=== PATIENT | male | born 1955 | race Caucasian/White ===

== ENCOUNTER 2020-05-25 16:50 | Outpatient (REF) | payer MEDICARE, MEDICAID, SELFPAY | END 2020-05-25 16:51 | disposition home or self-care (01) | LOC: HO.LNP 16:50 | PROVIDERS: Visit Provider Internal Medicine | DX: Z20.828 Contact with and (suspected) exposure to other viral communicable diseases (principal) | CPT/HCPCS: U0003 ==

== ENCOUNTER 2020-07-02 11:59 | Outpatient (REF) | payer MEDICARE, MEDICAID, SELFPAY ==
[2020-07-02 13:42] LABS: MANUAL DIFF FLAG NO
[2020-07-02 13:49] LABS: Basophils Percent Auto 0.5 % (0-2); Eosinophils Absolute Auto 0.1 X10*3/uL (0.0-0.4); Eosinophils Percent Auto 0.8 % (0-4); Hematocrit 46.6 % (42-52); Hemoglobin 15.2 g/dl (14.0-18.0); Imm Gran Abs Auto 0.05 X10*3/uL (0.00-0.03); Imm Gran Pct Auto 0.6 % (0.0-0.4); Lymphocytes Absolute Auto 1.4 X10*3/uL (1.2-4.9); Lymphocytes Percent Auto 15.7 % (20-40); Mean Corpuscular HGB Conc 32.6 g/dl (31.0-36.0); Mean Corpuscular Volume 91.9 fL (80-98); Mean Platelet Volume 12.1 fL (9.4-12.4); Monocytes Absolute Auto 0.4 X10*3/uL (0.1-1.2); Neutrophils Absolute Auto 6.7 X10*3/uL (2.0-8.3); Neutrophils Percent Auto 77.4 % (45-73); Platelet Count 210 X10*3/uL (160-400); Red Blood Count 5.07 X10*6/uL (4.60-5.80); Red Cell Distribution Width 13.1 % (11.0-16.0); White Blood Count 8.7 X10*3/uL (4.8-10.8)
[2020-07-02 14:23] LABS: Alanine Aminotransferase 27 U/L (0-40); Albumin Level 4.5 g/dL (3.5-5.0); Alkaline Phosphatase 74 U/L (39-117); Anion Gap 14 (12-20); Aspartate Amino Transferase 30 U/L (5-37); Bilirubin Total 0.5 mg/dL (0.0-1.0); Blood Urea Nitrogen 27 mg/dL (9-16); Calcium 9.2 mg/dL (8.4-10.2); Carbon Dioxide 25 mmol/L (22-29); Chloride 108 mmol/L (96-108); Cholesterol 161 mg/dL; Estimated Glomerular Filt Rate > 60; Glucose Random 92 mg/dL (60-115); Potassium 4.5 mmol/l (3.3-5.1); Sodium 142 mmol/L (135-145); Total Protein 7.2 g/dL (6.5-8.0)
[2020-07-02 14:45] LABS: Thyroid Stimulating Hormone 1.78 uIU/mL (0.32-4.0); Vitamin D 25-OH Total 20.9 ng/mL (>30)
== END 2020-07-02 12:00 | disposition home or self-care (01) ==
LOC: HO.10HDL 11:59
PROVIDERS: PCP Internal Medicine; Visit Provider Internal Medicine
DX: I10 Essential (primary) hypertension (principal); R35.1 Nocturia; G40.909 Epilepsy, unspecified, not intractable, without status epilepticus; R63.5 Abnormal weight gain
CPT/HCPCS: 36415; 80053; 82306; 82465; 84153; 84443; 85025

== ENCOUNTER 2021-04-08 10:58 | Outpatient (REF) | payer MEDICARE, MEDICAID, SELFPAY ==
[2021-04-08 13:23] LABS: MANUAL DIFF FLAG NO
[2021-04-08 13:25] LABS: Basophils Percent Auto 0.5 % (0-2); Eosinophils Absolute Auto 0.1 X10*3/uL (0.0-0.4); Hematocrit 48.3 % (42-52); Hemoglobin 15.9 g/dl (14.0-18.0); Imm Gran Abs Auto 0.08 X10*3/uL (0.00-0.03); Lymphocytes Absolute Auto 1.5 X10*3/uL (1.2-4.9); Lymphocytes Percent Auto 18.5 % (20-40); Mean Corpuscular HGB Conc 32.9 g/dl (31.0-36.0); Mean Corpuscular Volume 91.1 fL (80-98); Mean Platelet Volume 11.9 fL (9.4-12.4); Monocytes Absolute Auto 0.5 X10*3/uL (0.1-1.2); Monocytes Percent Auto 5.8 % (2-11); Neutrophils Absolute Auto 5.9 X10*3/uL (2.0-8.3); Neutrophils Percent Auto 73.2 % (45-73); Platelet Count 193 X10*3/uL (160-400); Red Cell Distribution Width 12.9 % (11.0-16.0); White Blood Count 8.1 X10*3/uL (4.8-10.8)
[2021-04-08 13:55] LABS: Alanine Aminotransferase 36 U/L (0-40); Albumin Level 4.6 g/dL (3.5-5.0); Alkaline Phosphatase 76 U/L (39-117); Anion Gap 14 (12-20); Aspartate Amino Transferase 32 U/L (5-37); Bilirubin Total 0.9 mg/dL (0.0-1.0); Blood Urea Nitrogen 26 mg/dL (9-16); Calcium 9.9 mg/dL (8.4-10.2); Carbon Dioxide 26 mmol/L (22-29); Chloride 106 mmol/L (96-108); Cholesterol 158 mg/dL; Estimated Glomerular Filt Rate > 60; Glucose Fasting 103 mg/dL (60-99); HDL Cholesterol 33 mg/dL; LDL Cholesterol Calculated 94 mg/dl; Potassium 4.4 mmol/L (3.3-5.1); Sodium 142 mmol/L (135-145); Total Protein 7.4 g/dL (6.5-8.0); Triglycerides 159 mg/dL
[2021-04-08 14:16] LABS: Vitamin D 25-OH Total 27.9 ng/mL (>30)
== END 2021-04-08 10:59 | disposition home or self-care (01) ==
LOC: HO.10HDL 10:58
PROVIDERS: Visit Provider Internal Medicine
DX: E78.00 Pure hypercholesterolemia, unspecified (principal); I10 Essential (primary) hypertension; E55.9 Vitamin D deficiency, unspecified; G40.909 Epilepsy, unspecified, not intractable, without status epilepticus
CPT/HCPCS: 36415; 80053; 80061; 82306; 85025

== ENCOUNTER 2021-10-10 10:51 | Outpatient (REF) | payer MEDICARE, MEDICAID, SELFPAY ==
[2021-10-10 12:25] LABS: MANUAL DIFF FLAG NO
[2021-10-10 12:31] LABS: Basophils Percent Auto 0.4 % (0-2); Eosinophils Absolute Auto 0.1 X10*3/uL (0.0-0.4); Hematocrit 50.5 % (42.0-52.0); Hemoglobin 16.3 g/dl (14.0-18.0); Imm Gran Abs Auto 0.05 X10*3/uL (0.00-0.03); Imm Gran Pct Auto 0.6 % (0.0-0.4); Lymphocytes Absolute Auto 1.8 X10*3/uL (1.2-4.9); Lymphocytes Percent Auto 21.9 % (20-40); Mean Corpuscular HGB Conc 32.3 g/dl (31.0-36.0); Mean Corpuscular Hemoglobin 30.1 pg (27.0-33.0); Mean Corpuscular Volume 93.3 fL (80.0-98.0); Mean Platelet Volume 12.1 fL (9.4-12.4); Monocytes Absolute Auto 0.6 X10*3/uL (0.1-1.2); Monocytes Percent Auto 7.4 % (2-11); Neutrophils Absolute Auto 5.6 x10*3/uL (2.0-8.3); Neutrophils Percent Auto 68.7 % (45-73); Platelet Count 200 X10*3/uL (160-400); Red Blood Count 5.41 X10*6/uL (4.60-5.80); White Blood Count 8.2 X10*3/uL (4.8-10.8)
[2021-10-10 12:47] LABS: Alanine Aminotransferase 30 U/L (0-40); Albumin Level 4.5 g/dL (3.5-5.0); Alkaline Phosphatase 76 U/L (39-117); Anion Gap 12 (12-20); Aspartate Amino Transferase 28 U/L (5-37); Blood Urea Nitrogen 24 mg/dL (9-16); Calcium 9.2 mg/dL (8.4-10.2); Carbon Dioxide 25 mmol/L (22-29); Chloride 108 mmol/L (96-108); Estimated Glomerular Filt Rate > 60; Glucose Random 91 mg/dL (60-115); Potassium 4.5 mmol/L (3.3-5.1); Sodium 140 mmol/L (135-145); Total Protein 7.4 g/dL (6.5-8.0)
[2021-10-10 13:05] LABS: Vitamin D 25-OH Total 27.7 ng/mL (>30)
== END 2021-10-10 10:52 | disposition home or self-care (01) ==
LOC: HO.10HDL 10:51
PROVIDERS: Visit Provider Internal Medicine
DX: G40.909 Epilepsy, unspecified, not intractable, without status epilepticus (principal); E78.00 Pure hypercholesterolemia, unspecified; I10 Essential (primary) hypertension; E55.9 Vitamin D deficiency, unspecified; K21.9 Gastro-esophageal reflux disease without esophagitis
CPT/HCPCS: 36415; 80053; 82306; 85025

== ENCOUNTER 2022-01-03 11:06 | Outpatient (REF) | payer MEDICARE, MEDICAID, SELFPAY ==
[2022-01-03 14:22] LABS: Blood Urea Nitrogen 27 mg/dL (9-16); Estimated Glomerular Filt Rate > 60
== END 2022-01-03 11:07 | disposition home or self-care (01) ==
LOC: HO.10HDL 11:06
PROVIDERS: Visit Provider Urology
DX: C67.9 Malignant neoplasm of bladder, unspecified (principal)
CPT/HCPCS: 36415; 82565; 84520

== ENCOUNTER 2022-05-26 11:50 | Outpatient (REF) | payer MEDICARE, MEDICAID, SELFPAY ==
[2022-05-26 13:37] LABS: MANUAL DIFF FLAG NO
[2022-05-26 13:43] LABS: Basophils Percent Auto 0.4 % (0-2); Eosinophils Absolute Auto 0.1 X10*3/uL (0.0-0.4); Hematocrit 47.2 % (42.0-52.0); Hemoglobin 15.4 g/dl (14.0-18.0); Imm Gran Abs Auto 0.06 X10*3/uL (0.00-0.03); Imm Gran Pct Auto 0.8 % (0.0-0.4); Lymphocytes Absolute Auto 1.1 X10*3/uL (1.2-4.9); Lymphocytes Percent Auto 14.2 % (20-40); Mean Corpuscular HGB Conc 32.6 g/dl (31.0-36.0); Mean Corpuscular Hemoglobin 30.2 pg (27.0-33.0); Mean Corpuscular Volume 92.5 fL (80.0-98.0); Mean Platelet Volume 11.6 fL (9.4-12.4); Monocytes Absolute Auto 0.7 X10*3/uL (0.1-1.2); Monocytes Percent Auto 8.6 % (2-11); Neutrophils Absolute Auto 5.9 x10*3/uL (2.0-8.3); Platelet Count 202 X10*3/uL (160-400); Red Cell Distribution Width 12.8 % (11.0-16.0); White Blood Count 7.9 X10*3/uL (4.8-10.8)
[2022-05-26 14:20] LABS: Alanine Aminotransferase 24 U/L (0-40); Albumin Level 4.3 g/dL (3.5-5.0); Alkaline Phosphatase 74 U/L (39-117); Anion Gap 14 (12-20); Aspartate Amino Transferase 25 U/L (5-37); Bilirubin Total 0.6 mg/dL (0.0-1.0); Blood Urea Nitrogen 33 mg/dL (9-16); Calcium 9.1 mg/dL (8.4-10.2); Carbon Dioxide 24 mmol/L (22-29); Chloride 109 mmol/L (96-108); Cholesterol 132 mg/dL; Estimated Glomerular Filt Rate > 60; Glucose Fasting 103 mg/dL (60-99); HDL Cholesterol 28 mg/dL; LDL Cholesterol Calculated 70 mg/dl; Potassium 4.8 mmol/L (3.3-5.1); Prostate Specific Antigen 3.61 ng/mL (<0.05-4.0); Sodium 142 mmol/L (135-145); Total Protein 6.9 g/dL (6.5-8.0); Triglycerides 171 mg/dL
== END 2022-05-26 11:51 | disposition home or self-care (01) ==
LOC: HO.10HDL 11:50
PROVIDERS: Visit Provider Internal Medicine
DX: I10 Essential (primary) hypertension (principal); E78.00 Pure hypercholesterolemia, unspecified; N40.0 Benign prostatic hyperplasia without lower urinary tract symptoms; Z12.5 Encounter for screening for malignant neoplasm of prostate
CPT/HCPCS: 36415; 80053; 80061; 84153; 85025

== ENCOUNTER 2022-11-19 09:53 | Emergency (ER) | payer MEDICARE, MEDICAID, SELFPAY ==
--- NOTE | ~2022-11-19 | CT_ITS ---
EXAMINATION: CT HEAD W/O IV CONTRAST CT CERVICAL SPINE W/O IV CONTRAST CLINICAL INFORMATION: History of fall with head strike. History of subdural hemorrhage. COMPARISON: 06/02/2019 TECHNIQUE: Head - Contiguous axial imaging of the head was performed from the skull base to the vertex without the administration of intravenous contrast, and axial images are reconstructed at 2 mm and 5 mm slice thickness. Cervical spine - A volumetric, helical CT acquisition of the cervical spine was obtained without contrast; in addition to the standard set of axial images, multiplanar reformatted images were provided in the coronal and sagittal imaging planes. This CT examination was performed using dose optimization techniques as appropriate, variously including the following: *Automated exposure control *Adjustment of mA and/or kV according to patient size (this includes techniques or standardized protocols for targeted exams where dose is matched to indication/reason for exam; i.e. extremities or head) *Use of iterative reconstruction technique DLP: 1316 mGy-cm (total) FINDINGS: HEAD: No acute intracranial findings compared to 06/02/2019. Ponce to white matter differentiation is preserved. No evidence of intracranial hemorrhage, major vascular territory infarction, focal mass effect or midline shift. Chronic moderate parenchymal volume loss with commensurate prominence of ventricles and sulci. No hydrocephalus or extra-axial fluid collections. Bilateral frontal craniotomies. The ventricular shunt catheter enters from a right parietal approach and the tip of the catheter remains within the body of the left lateral ventricle. 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 There are changes of chronic mild microangiopathy affecting the supratentorial white matter. The visualized paranasal sinuses are well aerated. There is opacification of some of the right mastoid air cells. The orbits, globes and temporomandibular joints are unremarkable. CERVICAL SPINE: The craniocervical junction is normal. The occipital condyles, dens and atlantodental articulation are intact. The vertebral body heights and alignment are maintained. No fractures in the anterior or posterior elements. No prevertebral soft tissue edema or paraspinal hematoma. The facet arthropathy of the cervical spine is moderate on the right at C2-C3 and mild at other levels. Chronic degenerative disc disease and uncovertebral joint hypertrophy of C3-C4, C4-C5, C5-C6 and C6-C7. The posterior disc-osteophyte complexes mildly narrow the central spinal canal, and there is generally moderate multilevel foraminal stenosis at these levels. The lung apices and thyroid gland are unremarkable. CT/CT cervical spine wo IV con IMPRESSION: * No acute intracranial pathology compared to prior head CT from 06/02/2019. * No fracture or malalignment in the degenerated cervical spine. * The tip of the ventricular shunt catheter is located in the body of the left lateral ventricle, unchanged compared to 06/02/2019.
--- NOTE | ~2022-11-19 | XR_ITS ---
EXAMINATION: XR HAND, LEFT at 10:42 AM XR HAND, LEFT at 11:10 AM CLINICAL INFORMATION: 4th digit, pain s/p fall. Postreduction views COMPARISON: None TECHNIQUE: PA, lateral, and oblique views of the left hand were obtained before and after reduction of the ring finger.. FINDINGS: Prereduction left hand images: There is dorsal dislocation of the ring finger at the level of the PIP joint with slight ulnar translation (3 mm) and foreshortening. Soft tissues are swollen. No fractures are identified. Joints otherwise well-preserved. No additional malalignment. Postreduction left hand images: Normal anatomic alignment of the ring finger PIP joint has been restored. Joint space is normal. No appreciable fractures are identified. Bone mineralization is normal. Mild soft tissue swelling. XR/XR hand LT min 3V IMPRESSION: Left ring finger PIP joint dislocation with subsequent reduction and baptism of normal anatomic alignment. No fractures are identified. Soft tissue swelling is present.
--- NOTE | ~2022-11-19 | XR_ITS ---
EXAMINATION: XR HAND, LEFT at 10:42 AM XR HAND, LEFT at 11:10 AM CLINICAL INFORMATION: 4th digit, pain s/p fall. Postreduction views COMPARISON: None TECHNIQUE: PA, lateral, and oblique views of the left hand were obtained before and after reduction of the ring finger.. FINDINGS: Prereduction left hand images: There is dorsal dislocation of the ring finger at the level of the PIP joint with slight ulnar translation (3 mm) and foreshortening. Soft tissues are swollen. No fractures are identified. Joints otherwise well-preserved. No additional malalignment. Postreduction left hand images: Normal anatomic alignment of the ring finger PIP joint has been restored. Joint space is normal. No appreciable fractures are identified. Bone mineralization is normal. Mild soft tissue swelling. XR/XR hand LT min 3V IMPRESSION: Left ring finger PIP joint dislocation with subsequent reduction and anabaptist of normal anatomic alignment. No fractures are identified. Soft tissue swelling is present.
[2022-11-19 09:59] VITALS: BP 141/88; PULSE 77; RESP 18; TEMP 36.6; O2SAT 98; BMI 30.7
[2022-11-19 10:58] VITALS: BP 132/83; PULSE 66; RESP 18; TEMP 37.1; O2SAT 96
--- NOTE | 2022-11-19 11:02 | ED.FALL ---
HPI - Fall General Chief Complaint: Fall Stated Complaint: fall t-1/hand and head inj Time Seen by Provider: 11/19/22 10:37 Source: patient Mode of arrival: ambulatory Limitations: no limitations History of Present Illness HPI Narrative: THIS IS A 67 YEARS OLD PATIENT WHO PRESENTED TO THE EMERGENCY DEPARTMENT AFTER A FALL LAST NIGHT. HE STATES THAT HE FELL FROM THE CHAIR. HE STATES THAT HE DID NOT HAVE A RIDE TO COME LAST NIGHT. IS COMPLAINING OF A HEADACHE AND LEFT HAND PAIN NO NECK PAIN. HE HAS HISTORY OF PRIOR SUBDURAL HEMATOMA complaint: fall Onset (ago): day(s) Fall from: wheelchair Fall witnessed: no Place fall occurred: home Loss of consciousness: none Location of injury: head Location of injury - extremities: left: hand Quality: burning Associated symptoms (after fall): denies Related Data Allergies Allergy/AdvReac Type Severity Reaction Status Date / Time No Known Allergies Allergy Mild NONE Verified 11/19/22 09:57 Review of Systems Constitutional: Constitutional: Reports no additional constitutional complaints ENT: Reports system reviewed and no additional complaints, except as documented Gastrointestinal: Gastrointestinal: Reports no additional gastrointestinal complaints [facility] Past Medical History [facility] Narrative: HISTORY OF SUBDURAL HEMATOMA Social History Social History Smoked in Last 30 Days: No Advance Directives: No Advance Directives Information Provided: Yes Physical Exam Vital Signs: Vital Signs: Last Vital Signs Temp 98.7 F 11/19/22 10:58 Pulse 66 11/19/22 10:58 Resp 18 11/19/22 10:58 BP 132/83 11/19/22 10:58 Pulse Ox 96 11/19/22 10:58 O2 Del Method Room Air 11/19/22 10:58 BMI result Body Mass Index 30.7 Const: General: cooperative Nutritional Appearance: well nourished Orientation/consciousness: patient oriented x3 Limitations: no limitations HEENT: Head: No abrasion, No Marquez's sign and No laceration General nose exam: Normal external nose present Face and sinus: Yes normal facial exam Neck: Neck: Yes normal visual inspection Chest: Chest palpation & inspection: normal inspection of the chest Resp: Effort & Inspection: normal respiratory effort Auscultation: clear to auscultation bilaterally Cardio: Jugular venous distension: no JVD Rate: regular rate Rhythm: regular rhythm GI: Inspection: Yes normal to inspection Palpation (GI): Soft to palpation, not firm and nontender Skin: General skin exam: no rashes or lesions noted, elasticity normal and turgor normal Rashes: no rashes Neuro: General: patient oriented x3 Extrem: Other: THERE IS A DEFORMITY IN THE LEFT RING FINGER AT THE PIP Course Reevaluation(s) Reevaluation #1: CT head and C-spine were negative hand showed dislocation of the PIP joint of the left ring finger the dislocation was reduced by me a splint was applied Procedures Orthopedic Joint Reduction Joint #1: Time Out Performed: Yes Side: left Joint Reduction Location: other (left ring finger PIP dislocation) Analgesia: none Technique used: traction/counter-traction and direct manipulation Post-reduction neuro exam: intact Post-reduction vascular: intact Post Reduction X-Ray Obtained: Yes Post Reduction X-Ray Results: reduced Patient Tolerated Procedure: well Medical Decision Making Medical Decision Making MDM Narrative: PRESENTED IN THE FALL LAST NIGHT WILL GET IMAGING HEAD/C-SPINE LEFT HAND Differential Diagnosis Differential Diagnoses: The differential diagnosis associated with the presentation includes SUBDURAL HEMATOMA/EPIDURAL HEMATOMA CONCUSSION Admission/Observation Consideration of admission/observation: Escalation of care including admission/observation considered Independent Interpretation I performed an independent interpretation of an: Plain X-Ray and CT Scan Interpretation: I INTERPRETED THE XRAY LEFT PIP DISLOCATION,head ct no subdural,CSpine ct no fx Radiology Impression Discussion of test interpretation with radiology: I have reviewed the radiologist's reading. Radiologist Impression: actures are identified. Joints otherwise well-preserved. No additional malalignment.? Postreduction left hand images: Normal anatomic alignment of the ring finger PIP joint has been restored. Joint space is normal. No appreciable fractures are identified. Bone mineralization is normal. Mild soft tissue swelling.? XR/XR hand LT min 3V IMPRESSION: Left ring finger PIP joint dislocation with subsequent reduction and hinduism of normal anatomic alignment. No fractures are identified. Soft tissue swelling is present. ? Dictated By: n Signed By: <Electronically signed by n in OV> 11/19/22 1144 The craniocervical junction is normal. The occipital condyles, dens and atlantodental articulation are intact. The vertebral body heights and alignment are maintained.? No fractures in the anterior or posterior elements. No prevertebral soft tissue edema or paraspinal hematoma. The facet arthropathy of the cervical spine is moderate on the right at C2-C3 and mild at other levels. Chronic degenerative disc disease and uncovertebral joint hypertrophy of C3-C4, C4-C5, C5-C6 and C6-C7. The posterior disc-osteophyte complexes mildly narrow the central spinal canal, and there is generally moderate multilevel foraminal stenosis at these levels. The lung apices and thyroid gland are unremarkable. CT/CT head/brain wo IV con IMPRESSION: *? No acute intracranial pathology compared to prior head CT from 06/02/2019. *? No fracture or malalignment in the degenerated cervical spine. *? The tip of the ventricular shunt catheter is located in the body of the left lateral ventricle, unchanged compared to 06/02/2019. ? Discharge Plan Discharge Clinical Impression: Head injury, Dislocation of finger PIP joint Patient Disposition: Home, Self-Care Instructions: Head Injury (ED), Finger Dislocation (ED) Referrals: Zion Brewer MD [Physician] - 3 days Interventions: ED Discharge Assessment Last Done: 11/19/22 15:01 Discharge Date/Time: 11/19/22 15:02
--- NOTE | 2022-11-19 12:54 | PC.NURSE ---
per finger splinted, awaiting CT results
== END 2022-11-19 15:02 | disposition home or self-care (01) ==
PROVIDERS: Emergency Provider Emergency Medicine; PCP Internal Medicine
DX: S09.90XA Unspecified injury of head, initial encounter (principal); S63.255A Unspecified dislocation of left ring finger, initial encounter; M79.642 Pain in left hand; M54.2 Cervicalgia; R51.9 Headache, unspecified; W07.XXXA Fall from chair, initial encounter; Y93.9 Activity, unspecified; Y92.9 Unspecified place or not applicable; Y99.9 Unspecified external cause status; Z79.899 Other long term (current) drug therapy
CPT/HCPCS: 70450; 72125; 73130; 99284

== ENCOUNTER → 2022-11-21 13:31 | Outpatient (BNVA) | payer MEDICARE, MEDICAID, SELFPAY | PROVIDERS: PCP Internal Medicine; Visit Provider Orthopaedic Surgery | DX: S63.285D Dislocation of proximal interphalangeal joint of left ring finger, subsequent encounter (principal) | CPT/HCPCS: 99202 ==

== ENCOUNTER → 2022-12-25 13:42 | Outpatient (BNVA) | payer MEDICARE, MEDICAID, SELFPAY | PROVIDERS: PCP Internal Medicine; Visit Provider Physician Assistant | DX: S63.285D Dislocation of proximal interphalangeal joint of left ring finger, subsequent encounter (principal) | CPT/HCPCS: 99212 ==

== ENCOUNTER 2023-02-15 14:20 | Outpatient (AMB) | payer MEDICARE, MEDICAID, SELFPAY ==
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
[2023-02-15 14:31] VITALS: BP 130/84; PULSE 70; O2SAT 98; BMI 29.7
== END 2023-02-15 15:13 | disposition home or self-care (01) ==
PROVIDERS: Visit Provider Psychiatry & Neurology Neurology
DX: R26.9 Unspecified abnormalities of gait and mobility (principal); R29.6 Repeated falls; Z98.2 Presence of cerebrospinal fluid drainage device
CPT/HCPCS: 99204

== ENCOUNTER → 2023-02-15 14:20 | Outpatient (BNVA) | payer MEDICARE, MEDICAID, SELFPAY | PROVIDERS: Visit Provider Psychiatry & Neurology Neurology | DX: R26.9 Unspecified abnormalities of gait and mobility (principal); Z98.2 Presence of cerebrospinal fluid drainage device; Z91.81 History of falling | CPT/HCPCS: 99202 ==

== ENCOUNTER 2023-07-17 08:55 | Outpatient (REF) | payer MEDICARE, MEDICAID, SELFPAY ==
[2023-07-17 11:21] LABS: MANUAL DIFF FLAG NO
[2023-07-17 11:23] LABS: Basophils Absolute Auto 0.1 X10*3/uL (0.0-0.2); Basophils Percent Auto 0.7 % (0-2); Eosinophils Absolute Auto 0.1 X10*3/uL (0.0-0.4); Eosinophils Percent Auto 0.6 % (0-4); Hematocrit 48.4 % (42.0-52.0); Imm Gran Abs Auto 0.07 X10*3/uL (0.00-0.03); Imm Gran Pct Auto 0.9 % (0.0-0.4); Lymphocytes Absolute Auto 1.3 X10*3/uL (1.2-4.9); Lymphocytes Percent Auto 16.5 % (20-40); Mean Corpuscular HGB Conc 33.1 g/dl (31.0-36.0); Mean Corpuscular Volume 90.6 fL (80.0-98.0); Monocytes Absolute Auto 0.5 X10*3/uL (0.1-1.2); Monocytes Percent Auto 6.3 % (2-11); Neutrophils Absolute Auto 6.1 x10*3/uL (2.0-8.3); Platelet Count 240 X10*3/uL (160-400); Red Blood Count 5.34 X10*6/uL (4.60-5.80); Red Cell Distribution Width 13.1 % (11.0-16.0); White Blood Count 8.1 X10*3/uL (4.8-10.8)
[2023-07-17 11:53] LABS: Alanine Aminotransferase 21 U/L (0-40); Albumin Level 4.5 g/dL (3.5-5.0); Alkaline Phosphatase 71 U/L (39-117); Anion Gap 12 (12-20); Aspartate Amino Transferase 25 U/L (5-37); Bilirubin Total 0.9 mg/dL (0.0-1.0); Blood Urea Nitrogen 24 mg/dL (9-16); Calcium 9.1 mg/dL (8.4-10.2); Carbon Dioxide 25 mmol/L (22-29); Chloride 109 mmol/L (96-108); Cholesterol 167 mg/dL (<200); Estimated Glomerular Filt Rate > 60; Glucose Fasting 105 mg/dL (60-99); HDL Cholesterol 31 mg/dL (>40); LDL Cholesterol Calculated 103 mg/dL (<100); Potassium 4.3 mmol/L (3.3-5.1); Sodium 142 mmol/L (135-145); Total Protein 7.6 g/dL (6.5-8.0); Triglycerides 169 mg/dL (<150)
[2023-07-17 12:23] LABS: Prostate Specific Antigen Scr 0.94 ng/mL (<0.05-4.0)
== END 2023-07-17 08:56 | disposition home or self-care (01) ==
LOC: HO.10HDL 08:55
PROVIDERS: Visit Provider Internal Medicine
DX: I10 Essential (primary) hypertension (principal); E78.00 Pure hypercholesterolemia, unspecified; K21.9 Gastro-esophageal reflux disease without esophagitis; R35.1 Nocturia; Z87.898 Personal history of other specified conditions; Z12.5 Encounter for screening for malignant neoplasm of prostate
CPT/HCPCS: 36415; 80053; 80061; 84153; 85025

== ENCOUNTER 2023-07-27 13:41 | Outpatient (REF) | payer MEDICARE, MEDICAID, SELFPAY ==
--- NOTE | ~2023-07-27 | CT_ITS ---
EXAMINATION: CT HEAD WITHOUT CONTRAST CLINICAL INFORMATION: 68-year-old with ataxia and history of previous shunting. COMPARISON: 11/19/2022 CT brain. TECHNIQUE: Contiguous axial imaging was performed from the skull base to vertex without intravenous administration of contrast. This CT examination was performed using dose optimization techniques as appropriate, variously including the following: *Automated exposure control *Adjustment of mA and/or kV according to patient size (this includes techniques or standardized protocols for targeted exams where dose is matched to indication/reason for exam; i.e. extremities or head) *Use of iterative reconstruction technique DLP: 924 mGy-cm FINDINGS: BRAIN VOLUME: [id number] generalized diffuse brain parenchymal volume loss is similar in appearance to the previous study. BRAIN AND MENINGES: Right parietal ventriculostomy shunt catheter again noted traversing the right lateral ventricle, septum pellucidum and terminating in the frontal horn of the left lateral ventricle unchanged in appearance. No extra-axial fluid collections, intracranial hemorrhage, space-occupying process or mass effect and no evidence for acute territorial infarct. Small chronic infarct involving the anterior limb of the left internal capsule and left caudate head unchanged. Focally confluent white matter hypodensity in the right posterior frontoparietal region adjacent to the shunt catheter is unchanged. VENTRICLES AND SUBARACHNOID SPACES: There is third and lateral ventriculomegaly as well as prominence of the fourth ventricle largely stable in appearance without significant interval change. ORBITAL STRUCTURES: Grossly unremarkable within the limitations of the study. OSSEOUS STRUCTURES, SINUSES/MASTOIDS, EXTRACRANIAL SOFT TISSUES: Evidence of previous bifrontal craniotomies again noted stable in appearance. The visualized airspaces are unopacified. CT/CT head/brain wo IV con IMPRESSION: 1. No evidence for acute territorial infarct, intracranial hemorrhage, extra-axial fluid collection, space-occupying process or mass effect. 2. Right parietal ventriculostomy shunt catheter again noted with stable ventriculomegaly. 3. 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
== END 2023-07-27 13:42 | disposition home or self-care (01) ==
LOC: HO.CT 13:41
PROVIDERS: PCP Internal Medicine; Visit Provider Psychiatry & Neurology Neurology
DX: R27.0 Ataxia, unspecified (principal)
CPT/HCPCS: 70450

== ENCOUNTER 2023-08-25 17:46 | Emergency (ER) | payer MEDICARE, MEDICAID, SELFPAY ==
--- NOTE | ~2023-08-25 | XR_ITS ---
EXAMINATION: XR CHEST 2 VIEWS CLINICAL INFORMATION: Chest pain. COMPARISON: Chest radiographs dated 06/02/2019. TECHNIQUE: Frontal and lateral views of the chest were obtained. FINDINGS: The heart, great vessels, pulmonary vasculature and mediastinum are normal. The lungs show no focal infiltrate, effusion or pneumothorax. There is stable mild lateral left base scar/subsegmental atelectasis, with tenting of the hemidiaphragm. There is no acute osseous abnormality. Shunt tubing overlaps the right cervical region and medial thorax. XR/XR chest 2V IMPRESSION: No active cardiopulmonary disease. There is no significant interim change.
[2023-08-25 17:50] VITALS: BP 149/92; PULSE 91; RESP 18; TEMP 37.1; O2SAT 90; BMI 30.4
--- NOTE | 2023-08-25 17:52 | ED.GENADULT ---
HPI - General Adult General Chief complaint: General Medical Stated complaint: L sided rib pain Time Seen by Provider: 08/25/23 18:21 Source: patient Mode of arrival: ambulatory Limitations: no limitations History of Present Illness HPI narrative: 68-year-old male with a history of high blood pressure, high cholesterol, anxiety, depression, bladder cancer here with complaints of 1 week of left sided rib pain which is worsened with coughing and breathing and movement. Patient denies shortness of breath, fevers, chills, leg swelling or leg pain. No recent travel, surgery. No personal or family history of blood clots. No urinary symptoms. Patient denies falls or injuries. Related Data Home Medications Medication Instructions Recorded Confirmed ascorbic acid (vitamin C) 500 mg 500 mg PO DAILY 11/21/22 02/15/23 tablet (Vitamin C) aspirin 81 mg tablet,delayed 81 mg PO DAILY 11/21/22 02/15/23 release cholecalciferol (vitamin D3) 50 50 mcg PO DAILY 11/21/22 02/15/23 mcg (2,000 unit) capsule (Vitamin D3) gabapentin 300 mg capsule mg PO 11/21/22 02/15/23 lisinopril 5 mg tablet 5 mg PO DAILY 11/21/22 02/15/23 lovastatin 40 mg tablet 40 mg PO DAILY 11/21/22 02/15/23 metoprolol tartrate 50 mg tablet 50 mg PO DAILY 11/21/22 02/15/23 polyethylene glycol 3350 17 g PO 11/21/22 02/15/23 gram/dose oral powder sertraline 50 mg tablet 50 mg PO DAILY 11/21/22 02/15/23 trazodone 50 mg tablet 50 mg PO BEDTIME 11/21/22 02/15/23 Previous Rx's Medication Instructions Recorded lidocaine 5 % topical patch 1 patch topical DAILY #15 ea 08/25/23 (Lidoderm) Allergies Allergy/AdvReac Type Severity Reaction Status Date / Time No Known Allergies Allergy Mild NONE Verified 02/15/23 14:39 Review of Systems Review of Systems: Yes all other systems are reviewed and are negative Constitutional: Constitutional: Reports no additional constitutional complaints, Denies body ache(s), Denies chills, Denies fever(s), Denies headache(s) and Denies weakness Eyes: Eyes: Reports no additional eye complaints and Denies change in vision ENT: Reports system reviewed and no additional complaints, except as documented, Denies dizziness, Denies headache(s), Denies nasal congestion, Denies nasal discharge and Denies neck pain Cardiovascular: Cardiovascular: Reports no additional cardiovascular complaints, Reports chest pain, Denies leg edema and Denies dyspnea Respiratory: Respiratory: Reports no additional respiratory complaints, Denies cough and Denies dyspnea Gastrointestinal: Gastrointestinal: Reports no additional gastrointestinal complaints, Denies abdominal pain, Denies diarrhea, Denies nausea and Denies vomiting Genitourinary: Genitourinary: Denies urinary incontinence Musculoskeletal: Musculoskeletal: Reports no additional musculoskeletal complaints, Denies back pain, Denies arthralgias, Denies joint swelling, Denies neck pain, Denies numbness and Denies tingling Integumentary/Breasts: Skin/Breast: Reports system reviewed and no additional complaints, except as docu and Denies rash Neurologic: Reports system reviewed and no additional complaints, except as documented, Denies Abnormal speech present, Denies dizziness, Denies headache(s), Denies numbness, Denies tingling and Denies weakness PMFSH Past Medical History Attestation statement: The following information was validated with the patient. 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 Physical Exam ED Vital Signs: Vital Signs - 24 hr 08/25/23 17:50 08/25/23 18:10 Temperature 98.8 F Pulse Rate 91 91 Respiratory Rate 18 16 Blood Pressure 149/92 H Pulse Oximetry 90 L 95 Oxygen Delivery Method Room Air Room Air BMI result Body Mass Index 30.4 Const General: cooperative, healthy appearing, comfortable and no acute distress Orientation/consciousness: patient oriented x3 Limitations: no limitations HENMT Head: Yes normal to inspection Ears: hearing grossly normal bilaterally General nose exam: Normal external nose present Face and sinus: Yes normal facial exam Mouth: Normal oral and palatal mucosa present Throat: Yes posterior oropharynx normal Eyes General: appearance normal, both eyes and all related structures Pupils: Equal, round and reactive pupils present Neck Neck: Yes normal visual inspection Chest Other: TTP to left lateral chest. NO crepitus or ecchymosis Chest palpation & inspection: normal inspection of the chest Resp Effort & Inspection: normal respiratory effort Auscultation: clear to auscultation bilaterally Cardio Rate: regular rate Rhythm: regular rhythm Peripheral pulses: Peripheral pulses 2+ throughout GI Inspection: Yes normal to inspection Palpation (GI): Soft to palpation and nontender Auscultation: normal bowel sounds General: Yes no CVA tenderness Back/Spine/Pelvis Back: no CVA tenderness Thoracic/Lumbar Spine: thoracic and lumbar spine normal to inspection Skin General skin exam: no rashes or lesions noted Neuro General: patient oriented x3, no focal motor deficits and normal sensation to monofilament Cranial nerves: Yes Equal, round and reactive pupils present Cognition (Neuro): normal cognition Speech: No Abnormal speech present Gait exam (Neuro): Normal gait present Motor exam (neuro): 5/5 motor strength present throughout Extrem General: Yes normal to inspection Course Course Course Narrative: This is an RME: Additional HPI, ROS, PE not included below will be deferred to primary provider. Patient is a 68-year-old male presents to the emergency department for evaluation of reported rib pain. 1 week ago, left anterior rib pain x1 week, awoke with that 1 morning without any known precipitating injury. States it is made worse with particular movements, deep inspiration or cough but denies any persistent cough/URI symptoms, shorntess of breath, nausea, vomiging, ABD pain. Plan: labs, CXR, EKG, viral testing Reevaluation(s) Reevaluation #1: 2039-labs are unremarkable. EKG is nonischemic. Chest x-ray shows no acute finding. Viral testing is negative. The pain seems more musculoskeletal as it is worsened with breathing, movement, and coughing. Likely muscular pain. Will recommend patient use Tylenol as needed and apply Lidoderm patches. Reviewed worrisome signs and symptoms of when to return to the emergency room. Comfortable plan for discharge home Medical Decision Making Medical Decision Making [facility] Narrative: 68-year-old male with a history of high blood pressure, high cholesterol, anxiety, depression, bladder cancer here with complaints of 1 week of left sided rib pain which is worsened with coughing and breathing. Patient denies shortness of breath, fevers, chills, leg swelling or leg pain. No recent travel, surgery. No family history of blood clots. No urinary symptoms. LS CTA. Abdomen soft/nontender. NO CVAT. VSS. No leg swelling or leg pain Left lateral chest wall with tenderness to palp with no crepitus or ecchymosis Will obtain EKG, CXR, UA, labs, viral testing Differential Diagnosis Differential Diagnoses: The differential diagnosis associated with the presentation includes Chest wall strain, ACS, dissection, PE, pneumonia, rib fracture, pyelonephritis, renal colic, UTI, musculoskeletal pain Doubt ACS with symptoms for 1 week with nonischemic EKG and negative troponin with history atypical for ACS. Doubt dissection with gradual onset of symptoms. Doubt PE with no hypoxia, no tachypnea, no tachycardia, no clinical findings concerning for DVT, no risk factors, negative D-dimer Admission/Observation Consideration of admission/observation: Escalation of care including admission/observation considered Lab Data [facility] Lab Attestation statement: I reviewed the patient's lab results. 08/25/23 18:48 08/25/23 18:48 Labs: Lab Results 08/25/23 08/25/23 Range/Units 18:48 20:08 WBC 8.8 (4.8-10.8) X10*3/uL RBC 4.81 (4.60-5.80) X10*6/uL Hgb 14.8 (14.0-18.0) g/dl Hct 44.2 (42.0-52.0) % MCV 91.9 (80.0-98.0) fL MCH 30.8 (27.0-33.0) pg MCHC 33.5 (31.0-36.0) g/dl RDW 13.1 (11.0-16.0) % Plt Count 187 (160-400) X10*3/uL MPV 11.1 (9.4-12.4) fL Immature Gran % (Auto) 0.5 H (0.0-0.4) % Neut % (Auto) 77.9 H (45-73) % Lymph % (Auto) 14.3 L (20-40) % [place] % (Auto) 6.3 (2-11) % Eos % (Auto) 0.7 (0-4) % Baso % (Auto) 0.3 (0-2) % Lymph # (Auto) 1.3 (1.2-4.9) X10*3/uL [place] # (Auto) 0.6 (0.1-1.2) X10*3/uL Eos # (Auto) 0.1 (0.0-0.4) X10*3/uL Baso # (Auto) 0.0 (0.0-0.2) X10*3/uL Abs Immat Gran (auto) 0.04 H (0.00-0.03) X10*3/uL Absolute Neuts (auto) 6.8 (2.0-8.3) x10*3/uL Absolute Nucleated RBC 0.000 (0.0-0.012) X10*3/uL Nucleated RBC % (auto) 0.0 (0.0-0.2) /100WBC PT 12.7 (11.1-13.3) SEC INR 1.0 (0.9-1.1) D-Dimer High Sensitivty < 150 NG/ML Sodium 141 (135-145) mmol/L Potassium 4.2 (3.3-5.1) mmol/L Chloride 106 (96-108) mmol/L Carbon Dioxide 25 (22-29) mmol/L Anion Gap 14 (12-20) BUN 24 H (9-16) mg/dL Creatinine 1.06 (0.5-1.4) mg/dL Estim Creat Clear Calc 70.9 Estimated GFR > 60 Random Glucose 106 (60-115) mg/dL Calcium 9.3 (8.4-10.2) mg/dL Total Bilirubin 0.6 (0.0-1.0) mg/dL AST 23 (5-37) U/L ALT 19 (0-40) U/L Alkaline Phosphatase 76 (39-117) U/L Troponin I High Sens 6.4 (<3.5-35.0) ng/L B-Natriuretic Peptide 73 (<100) pg/mL Total Protein 7.2 (6.5-8.0) g/dL Albumin 4.2 (3.5-5.0) g/dL Lipase 20 (8-78) U/L Urine Color Yellow Urine Appearance Clear Urine pH 5.5 (5.0-9.0) Ur Specific [place] >= 1.030 H (1.005-1.025) Urine Protein 30 (1+) H (Neg-Trace) mg/dL Urine Glucose (UA) Negative (Negative) mg/dL Urine Ketones Trace (Negative) mg/dL Urine Blood Negative (Negative) Urine Nitrite Negative (Negative) Ur Leukocyte Esterase Negative (Negative) Urine RBC 0-2 (0-2) /HPF Urine WBC 0-5 (0-5) /HPF Ur Squamous Epith Cells 0-2 (0-2) /HPF Urine Bacteria None Seen (None Seen) Hyaline Casts 0-2 (0-2) /LPF COVID-19 (JESSE) Negative (Negative) COVID-19 Clin Com See Note Influenza Type A (NEMESIO) Negative (Negative) Influenza Type B (NEMESIO) Negative (Negative) Influenza A & B Note See Note Independent Interpretation I performed an independent interpretation of an: EKG and Plain X-Ray Interpretation: I independently reviewed the EKG which shows sinus rhythm with PACs with a rate of 88, normal VT, normal QRS, normal QT I independently viewed the x-ray and agree with the radiology report Radiology Impression Discussion of test interpretation with radiology: I have reviewed the radiologist's reading. Radiologist Impression: [place] [id number] XRay Report Signed Patient: Tello Powell MR#: [id number] : 1955 Acct:[id number] Age/Sex: 68 / M ADM Date: 08/25/23 Loc: .ED Attending Dr: Ordering Physician: Ivet Fay CNP Date of Service: 08/25/23 Procedure(s): XR chest 2V Accession Number(s): [id number] cc: Ivet Fay CNP; bAel Beltran MD~ EXAMINATION: XR CHEST 2 VIEWS CLINICAL INFORMATION: Chest pain. COMPARISON: Chest radiographs dated 06/02/2019. TECHNIQUE: Frontal and lateral views of the chest were obtained. FINDINGS: The heart, great vessels, pulmonary vasculature and mediastinum are normal. The lungs show no focal infiltrate, effusion or pneumothorax. There is stable mild lateral left base scar/subsegmental atelectasis, with tenting of the hemidiaphragm. There is no acute osseous abnormality. Shunt tubing overlaps the right cervical region and medial thorax. XR/XR chest 2V IMPRESSION: No active cardiopulmonary disease. There is no significant interim change. Tests considered The following testing was considered but not selected: Low concern for PE so I do not believe that a CT is necessary. No focal abdominal pain or flank tenderness to suggest need for CT abdomen pelvis Prescription Management I considered prescription management with: Pain Medication Discharge Plan Discharge Clinical Impression: Muscle strain of anterior chest wall Patient Disposition: Home, Self-Care Instructions: Chest Wall Pain (ED) Additional Instructions: Your blood work is reassuring. Your EKG is normal. Your chest x-ray is normal. Your urine shows no signs of infection. This is likely muscular pain. You can take tylenol for pain as needed Alternate heat or ice Follow-up with your PCP for any continued symptoms Prescriptions: New lidocaine [Lidoderm] 5 % adhesive patch,medicated 1 patch topical DAILY Qty: 15 0RF Rx Instructions: leave on most painful area for up to 12 hrs No Action sertraline 50 mg tablet 50 mg PO DAILY ascorbic acid (vitamin C) [Vitamin C] 500 mg tablet 500 mg PO DAILY lovastatin 40 mg tablet 40 mg PO DAILY metoprolol tartrate 50 mg tablet 50 mg PO DAILY lisinopril 5 mg tablet 5 mg PO DAILY gabapentin 300 mg capsule PO trazodone 50 mg tablet 50 mg PO BEDTIME aspirin 81 mg tablet,delayed release (DR/EC) 81 mg PO DAILY polyethylene glycol 3350 17 gram/dose powder PO cholecalciferol (vitamin D3) [Vitamin D3] 50 mcg (2,000 unit) capsule 50 mcg PO DAILY Referrals: Abel Beltran MD [Primary Care Provider] - 1 week
--- NOTE | 2023-08-25 17:54 | ECG_ITS ---
Test Reason : RIB PAIN Blood Pressure : / mmHG Vent. Rate : 088 BPM Atrial Rate : 088 BPM P-R Int : 162 ms QRS Dur : 074 ms QT Int : 356 ms P-R-T Axes : -08 -07 023 degrees QTc Int : 430 ms Sinus rhythm with Premature atrial complexes Otherwise normal ECG When compared with ECG of 02-JUN-2019 17:54, No significant change was found Referred By: Ivet Fay Electronically Signed By:CHUNG DYSON
[2023-08-25 18:10] VITALS: PULSE 91; RESP 16; O2SAT 95
[2023-08-25 18:52] LABS: MANUAL DIFF FLAG NO
[2023-08-25 18:54] LABS: Basophils Percent Auto 0.3 % (0-2); Eosinophils Absolute Auto 0.1 X10*3/uL (0.0-0.4); Eosinophils Percent Auto 0.7 % (0-4); Hematocrit 44.2 % (42.0-52.0); Hemoglobin 14.8 g/dl (14.0-18.0); Imm Gran Abs Auto 0.04 X10*3/uL (0.00-0.03); Imm Gran Pct Auto 0.5 % (0.0-0.4); Lymphocytes Absolute Auto 1.3 X10*3/uL (1.2-4.9); Lymphocytes Percent Auto 14.3 % (20-40); Mean Corpuscular HGB Conc 33.5 g/dl (31.0-36.0); Mean Corpuscular Hemoglobin 30.8 pg (27.0-33.0); Mean Corpuscular Volume 91.9 fL (80.0-98.0); Mean Platelet Volume 11.1 fL (9.4-12.4); Monocytes Absolute Auto 0.6 X10*3/uL (0.1-1.2); Monocytes Percent Auto 6.3 % (2-11); Neutrophils Absolute Auto 6.8 x10*3/uL (2.0-8.3); Neutrophils Percent Auto 77.9 % (45-73); Platelet Count 187 X10*3/uL (160-400); Red Blood Count 4.81 X10*6/uL (4.60-5.80); Red Cell Distribution Width 13.1 % (11.0-16.0); White Blood Count 8.8 X10*3/uL (4.8-10.8)
--- NOTE | 2023-08-25 18:56 | PC.NURSE ---
pt brought into exam room 20G IV in right medial wrist, labs obtained. pt awaiting XR results and serology. pt to give urine sample
[2023-08-25 19:00] LABS: Prothrombin Time 12.7 SEC (11.1-13.3)
[2023-08-25 19:09] LABS: IDNOW Serial# 08D9AD1C; Influenza A Negative (Negative); Influenza B2 Negative (Negative)
[2023-08-25 19:10] LABS: Alanine Aminotransferase 19 U/L (0-40); Albumin Level 4.2 g/dL (3.5-5.0); Alkaline Phosphatase 76 U/L (39-117); Anion Gap 14 (12-20); Aspartate Amino Transferase 23 U/L (5-37); Bilirubin Total 0.6 mg/dL (0.0-1.0); Blood Urea Nitrogen 24 mg/dL (9-16); COVID-19 Test Negative (Negative); Calcium 9.3 mg/dL (8.4-10.2); Carbon Dioxide 25 mmol/L (22-29); Chloride 106 mmol/L (96-108); Creatinine Clr Calc Pharmacy 70.9; Estimated Glomerular Filt Rate > 60; Glucose Random 106 mg/dL (60-115); IDNOW Serial# 58CA691E; Lipase 20 U/L (8-78); Potassium 4.2 mmol/L (3.3-5.1); Sodium 141 mmol/L (135-145); Total Protein 7.2 g/dL (6.5-8.0)
[2023-08-25 19:14] LABS: B Type Natriuretic Peptide 73 pg/mL (<100)
[2023-08-25 19:15] LABS: Troponin-I High Sensitivity 6.4 ng/L (<3.5-35.0)
[2023-08-25 19:42] LABS: D Dimer High Sensitivity < 150 NG/ML
--- NOTE | 2023-08-25 20:18 | PC.NURSE ---
this rn assumed care of pt @ 1350. pt able to provide urine sample sample sent down to lab per order
[2023-08-25 20:24] LABS: Appearance Urine Clear; Color Urine Yellow; Glucose Urine UA Negative (Negative); Leukocyte Esterase Urine Negative (Negative); Nitrite Urine Negative (Negative); PH 5.5 (5.0-9.0); Specific Gravity - Urine >= 1.030 (1.005-1.025); UMIC TRIGGER UACC YES; Urine Blood Negative (Negative); Urine Ketones Trace mg/dL (Negative); Urine Protein 30 (1+) mg/dL (Neg-Trace)
[2023-08-25 20:26] LABS: Bacteria Urine None Seen (None Seen); Hyaline Casts Urine 0-2 /LPF (0-2); RBC Urine 0-2 /HPF (0-2); Squamous Epithelial Cell Urine 0-2 /HPF (0-2); WBC Urine 0-5 /HPF (0-5)
[2023-08-25 20:42] VITALS: BP 148/96; PULSE 78; RESP 14; TEMP 36.8; O2SAT 97
--- NOTE | 2023-08-25 20:55 | PC.NURSE ---
pt calm and carlita. iv removed at discharge. pt assisted with shoes. pt ambulatory with walker. pt provided with discharge packet pt verbalized understanding of discharge plan
== END 2023-08-25 20:57 | disposition home or self-care (01) ==
PROVIDERS: Nurse Practitioner Family; Emergency Provider Emergency Medicine; PCP Internal Medicine
DX: S29.011A Strain of muscle and tendon of front wall of thorax, initial encounter (principal); X58.XXXA Exposure to other specified factors, initial encounter; E78.5 Hyperlipidemia, unspecified; C67.9 Malignant neoplasm of bladder, unspecified; Z11.52 Encounter for screening for COVID-19; Z98.2 Presence of cerebrospinal fluid drainage device; Y93.9 Activity, unspecified; Y92.9 Unspecified place or not applicable; Y99.9 Unspecified external cause status
CPT/HCPCS: 36415; 71046; 80053; 81001; 83690; 83880; 84484; 85025; 85379; 85610; 87502; 87635; 93005; 99283; 99284

== ENCOUNTER → 2023-08-25 17:54 | Outpatient (BNV) | payer MEDICARE, MEDICAID, SELFPAY | PROVIDERS: Emergency Provider Emergency Medicine; PCP Internal Medicine; Visit Provider Internal Medicine | DX: I49.1 Atrial premature depolarization (principal) | CPT/HCPCS: 93010 ==

== ENCOUNTER 2023-10-15 18:17 | Emergency (ER) | payer MEDICARE, MEDICAID, SELFPAY ==
--- NOTE | ~2023-10-15 | XR_ITS ---
EXAMINATION: XR CHEST CLINICAL INFORMATION: Chest wall trauma. Left shoulder pain. COMPARISON: Previous chest x-ray August 2019 TECHNIQUE: Frontal view of the chest was obtained. FINDINGS: The cardiac and mediastinal contours are stable. The lungs are clear. No pleural effusion or pneumothorax. Pleural thickening adjacent to the left anterior fifth rib. Question left anterior fifth rib fracture. Old trauma to the right proximal humerus. Shunt tubing projects over the right lower neck and upper medial chest. XR/XR chest 1V IMPRESSION: No evidence for acute disease in the chest. Left lateral pleural thickening and question fracture of the left anterior fifth rib.
--- NOTE | ~2023-10-15 | CT_ITS ---
EXAMINATION: CT CHEST WITHOUT CONTRAST CLINICAL INFORMATION: Fall. Chest pain. Question rib fracture. COMPARISON: Chest radiograph done earlier the same day. TECHNIQUE: Multidetector volumetric CT imaging of the chest was done. Axial MIP volume rendering provided. Sagittal and coronal reformatted images were obtained. This CT examination was performed using dose optimization techniques as appropriate, variously including the following: *Automated exposure control. *Adjustment of mA and/or kV according to patient size (this includes techniques or standardized protocols for targeted exams where dose is matched to indication/reason for exam; i.e. extremities or head). *Use of iterative reconstruction technique. DLP: 421 mGy-cm FINDINGS: CONDUIT BENDER: Unremarkable. LUNGS: No confluent airspace consolidation. Right upper lobe 0.2 cm noncalcified nodule (axial image [id number]). Left lower lobe noncalcified 0.2 cm nodule (axial image [id number]). No large pulmonary mass. The central airways are patent. MEDIASTINUM: No cardiomegaly. No pericardial effusion. Mild dilatation of the ascending thoracic aorta measuring up to 4.2 cm. Scattered atherosclerotic calcifications. No mediastinal or hilar lymphadenopathy. There is an ovoid nodule within the thyroid isthmus measuring up to 1.4 x 2.3 cm. This is similar when compared to the CT dated 11/19/2022. Follow-up ultrasound is recommended. CORONARY ARTERY CALCIFICATION: Present. PLEURA: There is no pleural effusion. No pleural mass or thickening. AXILLA: No lymphadenopathy. UPPER ABDOMEN: Superior right hepatic lobe 1.7 cm simple-appearing cyst. Left adrenal nodule measuring 3.0 x 2.3 x 3.2 cm and approximately 6.2 Hounsfield units. Findings are consistent with a lipid-rich adenoma and no follow-up imaging is recommended. The remaining visualized upper abdominal structures are unremarkable. OSSEOUS STRUCTURES: Chronic-appearing healed fourth left rib and nonfused fifth left rib fractures. No acute fracture or dislocation. No concerning lytic or blastic osseous lesion. CT/CT chest wo IV con IMPRESSION: 1. No acute fracture or dislocation. Chronic-appearing healed fourth left rib and nonfused fifth left rib fractures. 2. No confluent airspace consolidation. Tiny bilateral pulmonary nodules measuring up to 0.2 cm. According to the UPDATED 2017 Fleischner Society recommendations, the advised follow-up imaging for nodules <6mm in the upper lobes is not necessarily required in low-risk patients. In high-risk patients with a nodule in the upper lobe and/or demonstrating suspicious morphology, an optional CT follow-up at 12 months may be obtained. If stable at 12 months, no further follow-up is recommended. 3. Mild dilatation of the ascending thoracic aorta measuring up to 4.2 cm. Scattered atherosclerotic calcifications. 4. Thyroid isthmus nodule measuring up to 2.3 cm, similar when compared to the CT dated 11/19/2022. Follow-up ultrasound is recommended. 5. Left adrenal lipid rich adenoma measuring up to 3.2 cm. No dedicated follow-up imaging recommended. Fleischner guidelines were followed.
--- NOTE | ~2023-10-15 | XR_ITS ---
EXAMINATION: XR SHOULDER, LEFT CLINICAL INFORMATION: Fall. Pain. COMPARISON: None available. TECHNIQUE: AP external rotation, Grashey, scapular Y, and axillary views of the left shoulder. FINDINGS: The bones and soft tissues are normal. No fracture. Glenohumeral and acromioclavicular alignment is anatomic with normal joint space. No abnormal soft tissue calcifications. XR/XR shoulder LT min 2V IMPRESSION: Normal left shoulder.
[2023-10-15 18:24] VITALS: BP 121/90; PULSE 99; RESP 16; TEMP 36.9; O2SAT 96; BMI 28.8
--- NOTE | 2023-10-15 18:26 | ED_ITS ---
HPI - General Adult General Chief complaint: Fall Stated complaint: Collarbone pain, fall at home Time Seen by Provider: 10/15/23 18:52 Source: patient Mode of arrival: ambulatory Limitations: no limitations Related Data Home Medications Medication Instructions Recorded Confirmed ascorbic acid (vitamin C) 500 mg 500 mg PO DAILY 11/21/22 02/15/23 tablet (Vitamin C) aspirin 81 mg tablet,delayed 81 mg PO DAILY 11/21/22 02/15/23 release cholecalciferol (vitamin D3) 50 50 mcg PO DAILY 11/21/22 02/15/23 mcg (2,000 unit) capsule (Vitamin D3) gabapentin 300 mg capsule mg PO 11/21/22 02/15/23 lisinopril 5 mg tablet 5 mg PO DAILY 11/21/22 02/15/23 lovastatin 40 mg tablet 40 mg PO DAILY 11/21/22 02/15/23 metoprolol tartrate 50 mg tablet 50 mg PO DAILY 11/21/22 02/15/23 polyethylene glycol 3350 17 g PO 11/21/22 02/15/23 gram/dose oral powder sertraline 50 mg tablet 50 mg PO DAILY 11/21/22 02/15/23 trazodone 50 mg tablet 50 mg PO BEDTIME 11/21/22 02/15/23 Previous Rx's Medication Instructions Recorded lidocaine 5 % topical patch 1 patch topical DAILY #15 ea 08/25/23 (Lidoderm) acetaminophen 325 mg capsule 650 mg (2 x 325 mg) PO Q4H PRN 10/15/23 (Tylenol) pain #30 caps lidocaine 5 % topical patch 1 patch topical DAILY PRN pain #15 10/15/23 ea Allergies Allergy/AdvReac Type Severity Reaction Status Date / Time No Known Allergies Allergy Mild NONE Verified 10/15/23 18:38 [facility] Past Medical History Medical History Falls Gait disorder Subdural hematoma Bladder cancer Hyperlipidemia Depressed High cholesterol High blood pressure Surgical History 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 H/O brain surgery Family History Family History Mother Cancer Sister Cancer Social History Social History Alcohol intake: never Patient Tobacco Use Status: Never used Tobacco Advance Directives: No Advance Directives Information Provided: No Current occupational status: 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 Patient is a 68-year-old male presenting to the ED with complaint of left clavicular/shoulder pain after a trip and fall around 10am. Denies head strike or loss of consciousness. Not anticoagulated. Denies headache, vision changes, neck or back pain. Plan: xray Medications Administered Discontinued Medications Generic Name Dose Route Start Last Admin Trade Name Jose PRN Reason Stop Dose Admin Acetaminophen 650 mg 10/15/23 20:38 10/15/23 20:52 Acetaminophen 325 Mg Tablet PO 10/15/23 20:39 650 mg ONCE ONE Administration Lidocaine 1 patch 10/15/23 20:38 10/15/23 20:52 Lidocaine 4 % Patch Adh..Patch TRANSDERMA 10/15/23 20:39 1 patch ONCE ONE Administration Protocol Discharge Plan Discharge Clinical Impression: Acute pain of left shoulder, Gait disorder, Fall from standing Patient Disposition: Home, Self-Care Instructions: Fall Prevention (ED), Shoulder Pain (ED), How to Transfer a Person Safely (DC) Additional Instructions: Take your medications as prescribed. If you were prescribed antibiotics today, it is important that you take your medication to their entirety, do not skip any doses, do not finish them early. Follow-up with your primary care provider this week. Return to the emergency department with new or worsening symptoms. Such as fevers, chills, chest pain, shortness of breath, nausea, vomiting, dizziness, headache, vision changes, lethargy In case of emergency call 911 XR/XR shoulder LT min 2V IMPRESSION: Normal left shoulder. XR/XR chest 1V IMPRESSION: No evidence for acute disease in the chest. Left lateral pleural thickening and question fracture of the left anterior fifth rib. Prescriptions: New lidocaine 5 % adhesive patch,medicated 1 patch topical DAILY PRN (Reason: pain) Qty: 15 0RF Rx Instructions: leave on most painful area for up to 12 hrs acetaminophen [Tylenol] 325 mg capsule 650 mg PO Q4H PRN (Reason: pain) Qty: 30 0RF No Action lidocaine [Lidoderm] 5 % adhesive patch,medicated 1 patch topical DAILY Qty: 15 0RF Rx Instructions: leave on most painful area for up to 12 hrs sertraline 50 mg tablet 50 mg PO DAILY ascorbic acid (vitamin C) [Vitamin C] 500 mg tablet 500 mg PO DAILY lovastatin 40 mg tablet 40 mg PO DAILY metoprolol tartrate 50 mg tablet 50 mg PO DAILY lisinopril 5 mg tablet 5 mg PO DAILY gabapentin 300 mg capsule PO trazodone 50 mg tablet 50 mg PO BEDTIME aspirin 81 mg tablet,delayed release (DR/EC) 81 mg PO DAILY polyethylene glycol 3350 17 gram/dose powder PO cholecalciferol (vitamin D3) [Vitamin D3] 50 mcg (2,000 unit) capsule 50 mcg PO DAILY Ref[place] [facility] [Provider Group] - 1 week Abel Beltran MD [Primary Care Provider] - 2 days
--- NOTE | 2023-10-15 20:08 | ED_ITS ---
HPI - Fall General Chief Complaint: Fall Stated Complaint: Collarbone pain, fall at home Time Seen by Provider: 10/15/23 18:52 Source: patient Mode of arrival: ambulatory Limitations: no limitations History of Present Illness HPI Narrative: This is a 68-year-old male history of frequent falls, gait disorder, status post [employer] shunt, bladder cancer, hypertension, hyperlipidemia presenting to the emergency department with complaints of left-sided clavicle pain/shoulder pain worse with movement better at rest. Patient reports he was walking, he tripped, fell between his couch and his table, landed on his left shoulder and since then has been having pain and swelling. This happened this morning. No headstrike or LOC. Patient not on thinners but takes asa. Took ibuprofen for pain w/ good relief. Denies cp, chest wall pain, sob, nausea, vomiting, abd pain, numbness, tingling, weakness, headache, vision changes, dizziness. Related Data Home Medications Medication Instructions Recorded Confirmed ascorbic acid (vitamin C) 500 mg 500 mg PO DAILY 11/21/22 02/15/23 tablet (Vitamin C) aspirin 81 mg tablet,delayed 81 mg PO DAILY 11/21/22 02/15/23 release cholecalciferol (vitamin D3) 50 50 mcg PO DAILY 11/21/22 02/15/23 mcg (2,000 unit) capsule (Vitamin D3) gabapentin 300 mg capsule mg PO 11/21/22 02/15/23 lisinopril 5 mg tablet 5 mg PO DAILY 11/21/22 02/15/23 lovastatin 40 mg tablet 40 mg PO DAILY 11/21/22 02/15/23 metoprolol tartrate 50 mg tablet 50 mg PO DAILY 11/21/22 02/15/23 polyethylene glycol 3350 17 g PO 11/21/22 02/15/23 gram/dose oral powder sertraline 50 mg tablet 50 mg PO DAILY 11/21/22 02/15/23 trazodone 50 mg tablet 50 mg PO BEDTIME 11/21/22 02/15/23 Previous Rx's Medication Instructions Recorded lidocaine 5 % topical patch 1 patch topical DAILY #15 ea 08/25/23 (Lidoderm) acetaminophen 325 mg capsule 650 mg (2 x 325 mg) PO Q4H PRN 10/15/23 (Tylenol) pain #30 caps azithromycin 250 mg tablet See Rx Instructions PO .COMPLEX #6 10/15/23 tabs lidocaine 5 % topical patch 1 patch topical DAILY PRN pain #15 10/15/23 ea Allergies Allergy/AdvReac Type Severity Reaction Status Date / Time No Known Allergies Allergy Mild NONE Verified 10/15/23 18:38 Review of Systems Review of Systems: Yes all other systems are reviewed and are negative [facility] Past Medical History Attestation statement: The following information was validated with the patient. 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 Oriented X3.? No acute distress.? Head: Normocephalic, atraumatic, no step-offs or deformities Eyes: Pupils equal, round and reactive to light.? Neck: Normal inspection.? Neck supple.? CVS: Normal heart rate and rhythm.? Pulses normal.? Respiratory: No respiratory distress.? Breath sounds normal.? Abdomen: Soft and nontender.? Skin: Skin warm and dry.? Normal skin color.? Normal skin turgor.? Extremities: No lower extremity edema.? No calf ttp. 5/5 strength to bilateral upper and lower extremities No TTP overlying b/l clavicles. No stepoffs or deformities. No ac sepration noted. Full painless rom to b/l shoulders w/ flexion and extension slight discomfort w/ reaching to opposite side w/ right shoulder. No wrist drop. Normal sensation distally. Cap refil < 2 seconds to b/l UE. 2+ radial pulses equal and b/l. Back: No midline tenderness, no C-spine tenderness, full range of motion, no CVA tenderness bilaterally Neuro: Oriented X 3.? No motor deficit.? No sensory deficit. CN 2-12 intact . Negative Romberg and pronator drift. Normal [id number]. Ambulatory steady gait and walker normal coordination. Course Reevaluation(s) Reevaluation #1: X-ray of left shoulder unremarkable. X-ray of chest wall showing no evidence of acute disease in the chest, lateral left pleural thickening and question fracture of the left anterior 5th rib. No tenderness to palpation of chest wall low suspicion for this however will obtain CT scan to further evaluate this Time: 20:04 Reevaluation #2: CT of the chest showing no acute fractures or dislocations, chronic appearing healed 4th left rib and non fused 5th left rib fracture. Non confluence airspace consolidation and tiny bilateral pulmonary nodules measuring up to 0.2 cm. Recommendations attached to discharge. Mild dilation of the ascending thoracic aorta measuring up to 4.2 cm. Scattered atherosclerotic calcification s. Thyroid isthmus nodule measuring 2.3 cm however has been seen previously. Left adrenal lip rich adenoma measuring up to 3.2 cm. Patient made aware of these findings. Will be discharged with a Z-Quoc. No upper respiratory symptoms however this could be an early pneumonia. Educated patient on diagnosis and treatment plan, answered all question, patient verbalizes understanding. At this time patient will be discharged home, advised to return with new or worsening symptoms. Educated on worrisome signs and symptoms and when to return. At this time I feel comfortable discharge home. Time: 22:30 Reevaluation #3: EKG done prior to DC Medications Administered Discontinued Medications Generic Name Dose Route Start Last Admin Trade Name Anthonyq PRN Reason Stop Dose Admin Acetaminophen 650 mg 10/15/23 20:38 10/15/23 20:52 Acetaminophen 325 Mg Tablet PO 10/15/23 20:39 650 mg ONCE ONE Administration Lidocaine 1 patch 10/15/23 20:38 10/15/23 20:52 Lidocaine 4 % Patch Adh..Patch TRANSDERMA 10/15/23 20:39 1 patch ONCE ONE Administration Protocol Medical Decision Making Medical Decision Making MDM Narrative: 68-year-old male presents status post fall with complaints of left shoulder pain. No head strike or loss of consciousness. On aspirin not on blood thinners. No preceding symptoms to fall. Reports mechanical fall. Physical exam significant for No lower extremity edema.? No calf ttp. 5/5 strength to bilateral upper and lower extremities No TTP overlying b/l clavicles. No stepoffs or deformities. No ac sepration noted. Full painless rom to b/l shoulders w/ flexion and extension slight discomfort w/ reaching to opposite side w/ right shoulder. No wrist drop. Normal sensation distally. Cap refil < 2 seconds to b/l UE. 2+ radial pulses equal and b/l. History and physical exam concerning for contusion. Unlikely fracture, dislocation, AC separation, neurovascular compromise, acute threat to limb. No signs of traumatic injury to head, neck, chest, abdomen or pelvis. There is some suspicion for possible rotator cuff injury. No signs of flail chest or traumatic pneumothorax Plan at this time x-ray Differential Diagnosis Differential Diagnoses: The differential diagnosis associated with the presentation includes History and physical exam concerning for contusion. Unlikely fracture, dislocation, AC separation, neurovascular compromise, acute threat to limb. No signs of traumatic injury to head, neck, chest, abdomen or pelvis. There is some suspicion for possible rotator cuff injury. No signs of flail chest or traumatic pneumothorax Admission/Observation Consideration of admission/observation: Escalation of care including admission/observation considered Independent Interpretation I performed an independent interpretation of an: Plain X-Ray ( XR/XR shoulder LT min 2V IMPRESSION: Normal left shoulder. XR/XR chest 1V IMPRESSION: No evidence for acute disease in the chest. Left lateral pleural thickening and question fracture of the left anterior fifth rib. ) and CT Scan (CT/CT chest wo IV con IMPRESSION: 1. No acute fracture or dislocation. Chronic-appearing healed fourth left rib and nonfused fifth left rib fractures. 2. No confluent airspace consolidation. Tiny bilateral pulmonary nodules measuring up to 0.2 cm. According to the UPDATED 2017 Fleischner Society ) Radiology Impression Discussion of test interpretation with radiology: I have reviewed the radiologist's reading. Prescription Management I considered prescription management with: Pain Medication (Tylenol, Lidoderm patch) Discharge Plan Discharge Clinical Impression: Acute pain of left shoulder, Gait disorder, Fall from standing, Pneumonia, Adrenal adenoma, Dilatation of thoracic aorta, Thyroid nodule Patient Disposition: Home, Self-Care Instructions: Fall Prevention (ED), Shoulder Pain (ED), How to Transfer a Person Safely (DC) Additional Instructions: Take your medications as prescribed. If you were prescribed antibiotics today, it is important that you take your medication to their entirety, do not skip any doses, do not finish them early. Follow-up with your primary care provider this week. Return to the emergency department with new or worsening symptoms. Such as fevers, chills, chest pain, shortness of breath, nausea, vomiting, dizziness, headache, vision changes, lethargy In case of emergency call [address] scan showed old fractures to her left 4th and 5th ribs. It also showed a consolidation which could be early pneumonia therefore antibiotics will be sent to your pharmacy. There is dilation of the ascending thoracic aorta please follow-up with your PCP may have to see vascular surgery. Thyroid nodule also noted follow-up with PCP. There is also a lipid adenoma these are likely benign however please follow-up with your PCP further imaging may be necessary. XR/XR shoulder LT min 2V IMPRESSION: Normal left shoulder. XR/XR chest 1V IMPRESSION: No evidence for acute disease in the chest. Left lateral pleural thickening and question fracture of the left anterior fifth rib. CT/CT chest wo IV con IMPRESSION: 1. No acute fracture or dislocation. Chronic-appearing healed fourth left rib and nonfused fifth left rib fractures. 2. No confluent airspace consolidation. Tiny bilateral pulmonary nodules measuring up to 0.2 cm. According to the UPDATED 2017 Fleischner Society recommendations, the advised follow-up imaging for nodules <6mm in the upper lobes is not necessarily required in low-risk patients. In high-risk patients with a nodule in the upper lobe and/or demonstrating suspicious morphology, an optional CT follow-up at 12 months may be obtained. If stable at 12 months, no further follow-up is recommended. 3. Mild dilatation of the ascending thoracic aorta measuring up to 4.2 cm. Scattered atherosclerotic calcifications. 4. Thyroid isthmus nodule measuring up to 2.3 cm, similar when compared to the CT dated 11/19/2022. Follow-up ultrasound is recommended. 5. Left adrenal lipid rich adenoma measuring up to 3.2 cm. No dedicated follow-up imaging recommended. Fleischner guidelines were followed. Prescriptions: New lidocaine 5 % adhesive patch,medicated 1 patch topical DAILY PRN (Reason: pain) Qty: 15 0RF Rx Instructions: leave on most painful area for up to 12 hrs acetaminophen [Tylenol] 325 mg capsule 650 mg PO Q4H PRN (Reason: pain) Qty: 30 0RF azithromycin 250 mg tablet See Rx Instructions .ROUTE .COMPLEX Qty: 6 0RF Rx Instructions: For 250 mg dose pack: take 500 mg today (day 1), then 250 mg for 4 days (days 2-5) No Action lidocaine [Lidoderm] 5 % adhesive patch,medicated 1 patch topical DAILY Qty: 15 0RF Rx Instructions: leave on most painful area for up to 12 hrs sertraline 50 mg tablet 50 mg PO DAILY ascorbic acid (vitamin C) [Vitamin C] 500 mg tablet 500 mg PO DAILY lovastatin 40 mg tablet 40 mg PO DAILY metoprolol tartrate 50 mg tablet 50 mg PO DAILY lisinopril 5 mg tablet 5 mg PO DAILY gabapentin 300 mg capsule PO trazodone 50 mg tablet 50 mg PO BEDTIME aspirin 81 mg tablet,delayed release (DR/EC) 81 mg PO DAILY polyethylene glycol 3350 17 gram/dose powder PO cholecalciferol (vitamin D3) [Vitamin D3] 50 mcg (2,000 unit) capsule 50 mcg PO DAILY Referrals: [facility] [Provider Group] - 1 week Abel Beltran MD [Primary Care Provider] - 2 days
[2023-10-15] MEDS: Lidocaine 4 % Patch ADH..PATCH 1 PATCH TRANSDERMA (20:52)
[2023-10-15] MEDS: Acetaminophen 325 MG TABLET 650 MG PO (20:52)
[2023-10-15 21:38] VITALS: BP 124/88; PULSE 90; RESP 20; TEMP 36.8; O2SAT 97
--- NOTE | 2023-10-15 22:32 | ECG_ITS ---
Test Reason : fall Blood Pressure : / mmHG Vent. Rate : 093 BPM Atrial Rate : 093 BPM P-R Int : 162 ms QRS Dur : 076 ms QT Int : 358 ms P-R-T Axes : 029 -12 006 degrees QTc Int : 445 ms Normal sinus rhythm Normal ECG When compared with ECG of 25-AUG-2023 18:15, Premature atrial complexes are no longer Present Referred By: Tab Chaves Electronically Signed By:GE TABOR MD
[2023-10-15 23:07] VITALS: BP 124/88; PULSE 90; RESP 20; TEMP 36.8; O2SAT 97
== END 2023-10-15 23:09 | disposition home or self-care (01) ==
PROVIDERS: Emergency Provider Student in an Organized Health Care Education/Training Program; PCP Internal Medicine
DX: S49.92XA Unspecified injury of left shoulder and upper arm, initial encounter (principal); R26.81 Unsteadiness on feet; J18.9 Pneumonia, unspecified organism; D35.02 Benign neoplasm of left adrenal gland; D35.01 Benign neoplasm of right adrenal gland; E04.1 Nontoxic single thyroid nodule; R94.31 Abnormal electrocardiogram [ECG] [EKG]; R07.89 Other chest pain; W01.10XA Fall on same level from slipping, tripping and stumbling with subsequent striking against unspecified object, initial encounter; Y93.9 Activity, unspecified; Y92.9 Unspecified place or not applicable; Y99.8 Other external cause status; Z79.899 Other long term (current) drug therapy
CPT/HCPCS: 71045; 71250; 73030; 93005; 99284

== ENCOUNTER → 2023-10-15 22:32 | Outpatient (BNV) | payer MEDICARE, MEDICAID, SELFPAY | PROVIDERS: Emergency Provider Student in an Organized Health Care Education/Training Program; PCP Internal Medicine; Visit Provider Internal Medicine Cardiovascular Disease | DX: R55 Syncope and collapse (principal) | CPT/HCPCS: 93010 ==

== ENCOUNTER 2023-10-25 08:45 | Outpatient (AMB) | payer MEDICARE, MEDICAID, SELFPAY ==
--- NOTE | 2023-10-25 08:50 | A.OFFVIS_ITS ---
Intake Vital Signs 10/25/23 09:04 Height 5 ft 10 in Weight 200 lb BMI 28.7 Intake Visit Reasons: New problem collar bone S/P ED visit 10/15/23 Intake Note: Tello barton 68 year old male who uses a walker to ambulate presents today for an evaluation of left collar bone s/p ED visit on 10/15/23. Patient reports he had a fall injuring his shoulder and buttocks. [place] [facility] [place] were taken and referred to orthopedics. He states a more recent fall a couple of days ago injuring bilateral shoulders. His pain and ROM are worse in the morning however gets better as the day goes on. States his left shoulder causes him the most pain. Tylenol and lidocaine patches provide him with some relief. Allergies No Known Allergies Allergy (Mild, Verified 10/25/23 09:05) NONE Medication List - Last Reconciled 10/25/23 by Aj Abraham PA-C acetaminophen (Tylenol) 650 mg (2 x 325 mg) PO Q4H PRN ascorbic acid (vitamin C) (Vitamin C) 500 mg PO DAILY aspirin 81 mg PO DAILY azithromycin For 250 mg dose pack: take 500 mg today (day 1), then 250 mg for 4 days (days 2-5) cholecalciferol (vitamin D3) (Vitamin D3) 50 mcg PO DAILY gabapentin mg PO lidocaine 5% (Lidoderm) 1 patch topical DAILY lidocaine 5% 1 patch topical DAILY PRN lisinopril 5 mg PO DAILY lovastatin 40 mg PO DAILY metoprolol tartrate 50 mg PO DAILY polyethylene glycol 3350 grams PO sertraline 50 mg PO DAILY trazodone 50 mg PO BEDTIME HPI New problem collar bone S/P ED visit 10/15/23 HPI Details 68-year-old male who [facility] today for an evaluation of left collar bone after he sustained a fall injuring his shoulder and buttocks. He was seen at ED on 10/15/23 where x-rays were performed and he was referred to our office. He reports he sustained another fall about 2 days ago where he injured his bilateral shoulders. His pain is worse on the left shoulder. He currently states he has pain and limited ROM in his shoulder which is worse in the mornings and gets better throughout the day. He uses a walker to ambulate. He has tried Tylenol and lidocaine patches with mild relief. 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 Tenderness over the bicipital groove and along the deltoid region of the shoulder. Forward flexion to 175, external rotation to 90, internal rotation to S1. 5/5 RTC strength. Negative Burgess and cross body abduction. NVI. Results Reviewed Results Reviewed: X-rays of the left shoulder obtained on 10/15/23 are negative for any acute or chronic abnormalities. Assessment & Plan Assessment & Plan (1) Left shoulder tendonitis: Code(s): M77.8 - Other enthesopathies, not elsewhere classified Plan We discussed options which include physical therapy which he would like to hold off at this time. I did give him a handout of home exercises work on and if symptoms persist or worsens, patient will contact the office to discuss steroid injection, otherwise follow-up as needed. Patient Instructions: Scribed for Aj Abraham PA-C, by Imer Boland biomedical field service engineer, on 10/25/2023 at 9:00 AM EST. Aj Hood PA-C, have personally reviewed and agree with the information entered by the scribe. Coding Level of Care Code New Pt Level 3 (51653) Diagnoses Left shoulder tendonitis M77.8
[2023-10-25 09:04] VITALS: BMI 28.7
== END 2023-10-25 09:12 | disposition home or self-care (01) ==
PROVIDERS: PCP Internal Medicine; Visit Provider Physician Assistant
DX: M77.8 Other enthesopathies, not elsewhere classified (principal)
CPT/HCPCS: 99213

== ENCOUNTER → 2023-10-25 08:45 | Outpatient (BNVA) | payer MEDICARE, MEDICAID, SELFPAY | PROVIDERS: PCP Internal Medicine; Visit Provider Physician Assistant | DX: M77.8 Other enthesopathies, not elsewhere classified (principal) | CPT/HCPCS: 99212 ==

== ENCOUNTER 2024-01-23 11:19 | Inpatient (IN) | payer MEDICARE, MEDICAID, SELFPAY ==
--- NOTE | ~2024-01-23 | XR_ITS ---
EXAMINATION: XR CHEST CLINICAL INFORMATION: Difficulty breathing COMPARISON: Chest radiograph 10/15/2023 TECHNIQUE: Frontal view of the chest was obtained. FINDINGS: There is minimal atelectasis at the left base possibly due to poor inspiratory effort although an early pneumonia could have such an appearance. Lungs otherwise clear. Heart and pulmonary vessels are normal. Shunt tubing projects over the right lower neck and upper medial chest. Posttraumatic deformity to the proximal right humerus noted. XR/XR chest 1V IMPRESSION: Query early left basilar infiltrate for which follow-up PA lateral would be advised.
--- NOTE | ~2024-01-23 | CT_ITS ---
EXAMINATION: CT HEAD W/O IV CONTRAST CT CERVICAL SPINE W/O IV CONTRAST CLINICAL INFORMATION: History of fall. History of subdural hematoma. Trauma. COMPARISON: 11/19/2022 and 07/27/2023 TECHNIQUE: Head - Contiguous axial imaging of the head was performed from the skull base to the vertex without the administration of intravenous contrast, and axial images are reconstructed at 2 mm and 5 mm slice thickness. Cervical spine - A volumetric, helical CT acquisition of the cervical spine was obtained without contrast; in addition to the standard set of axial images, multiplanar reformatted images were provided in the coronal and sagittal imaging planes. This CT examination was performed using dose optimization techniques as appropriate, variously including the following: *Automated exposure control *Adjustment of mA and/or kV according to patient size (this includes techniques or standardized protocols for targeted exams where dose is matched to indication/reason for exam; i.e. extremities or head) *Use of iterative reconstruction technique DLP: 1314 mGy-cm (total) FINDINGS: HEAD: No acute intracranial findings. Ponce to white matter differentiation is preserved. No evidence of intracranial hemorrhage, major vascular territory infarction, focal mass effect or midline shift. Chronic moderate parenchymal volume loss with commensurate prominence of ventricles and sulci. No hydrocephalus or extra-axial fluid collections. Bilateral frontal craniotomies. The ventricular shunt catheter enters from a right parietal approach and the tip of the catheter remains within the body of the left lateral ventricle. Old lacunar is seen in the region of the anterior limb of the left internal capsule. Again noted are patchy opacities within the supratentorial white matter that are consistent with sequela of chronic microangiopathy. No calvarial fracture. The paranasal sinuses are well aerated. There is opacification of some of the inferior right mastoid air cells. The orbits, globes and temporomandibular joints are unremarkable. CERVICAL SPINE: No acute findings in the cervical spine compared to 11/19/2022. The craniocervical junction is normal. The occipital condyles, dens and atlantodental articulation are intact. The vertebral body heights and alignment are maintained. No fractures in the anterior or posterior elements. No prevertebral soft tissue edema or soft tissue hematoma. The facet arthropathy of the cervical spine is moderate on the right at C2-C3 and mild at other levels. Chronic degenerative disc disease and uncovertebral joint hypertrophy of C3-C4, C4-C5, C5-C6 and C6-C7. The posterior disc-osteophyte complexes at these levels mildly narrow the central spinal canal, and there is generally moderate multilevel neural foraminal stenosis, as observed on 11/19/2022. There appears to be a healing nondisplaced fracture of the medial left first rib. This rib injury might have been too subtle for detection on the chest CT from 10/15/2023. Thyroid gland is grossly unremarkable. CT/CT cervical spine wo IV con IMPRESSION: * No intracranial hemorrhage or other acute intracranial pathology compared to 07/27/2023. * No fracture or malalignment in the degenerated cervical spine. * There is a healing nondisplaced fracture of the medial left first rib.
--- NOTE | ~2024-01-23 | CT_ITS ---
EXAMINATION: CT ABDOMEN AND PELVIS WITHOUT CONTRAST CLINICAL INFORMATION: Acute renal failure. Diarrhea. COMPARISON: Chest CT from 10/15/2023 TECHNIQUE: Multidetector volumetric imaging was performed from the superior aspect of the liver through the pubic symphysis. Sagittal and coronal reformatted images were obtained on the technologist's workstation. This CT examination was performed using dose optimization techniques as appropriate, variously including the following: *Automated exposure control *Adjustment of mA and/or kV according to patient size (this includes techniques or standardized protocols for targeted exams where dose is matched to indication/reason for exam; i.e. extremities or head) *Use of iterative reconstruction technique DLP: 570 mGy-cm FINDINGS: LUNG BASES: Peripheral linear and platelike opacities of atelectasis in the visualized lower lung zones. The tip of a right IJ catheter is in region of junction of the superior vena cava with right atrium. No pericardial or pleural effusion. HEPATOBILIARY: 1.5 cm simple cyst of hepatic segment 8. Also, small lobulated septated cyst of hepatic segment 5. There is cholelithiasis without gallbladder wall edema or pericholecystic fluid. No dilated bile ducts. PANCREAS: No edema, pancreatic ductal dilatation or mass. SPLEEN: Normal. ADRENAL GLANDS: 2.5 x 3 cm smoothly marginated nodule of the left adrenal gland has a density of 1 HU, consistent with with lipid rich adenoma and unchanged in size compared to 10/15/2023. No adrenal imaging follow-up recommended. KIDNEYS AND URETERS: Kidneys are normal in size. No perinephric edema, nephrolithiasis or hydronephrosis. There is an area of chronic cortical atrophy of the posterior lower pole the right kidney. The ureters are unremarkable. Small simple cyst of the anterior left kidney. No renal imaging follow-up recommended. BLADDER: Unremarkable. BOWEL AND PERITONEUM: No dilated bowel loops. No evidence of appendicitis. There are three small appendicoliths of the appendix. Multiple diverticula of the descending and sigmoid colon without evidence of diverticulitis. No abdominal free fluid or free air. ABDOMINAL WALL: A fat-containing right inguinal hernia is present. VASCULATURE: There is atherosclerotic calcification of the abdominal aorta. A saccular aneurysm arising from the right lateral wall of the proximal abdominal aorta is possibly secondary to an old penetrating atherosclerotic ulcer. At the site of the aneurysm, the aorta is 3.5 cm transverse diameter (if measured on axial image 38, series 3). Also, there are small saccular outpouchings from the left lateral (image 41, series 3) and anterior (image 45, series 3 narayan of the abdominal aorta. 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 Also, aneurysm of the celiac artery at which point the celiac artery is approximately 1.5 cm transverse diameter. LYMPH NODES: No pathologic sized lymph nodes in the abdomen or pelvis. No inguinal lymphadenopathy. PELVIC VISCERA: Mild prostatomegaly. No pelvic free fluid. MUSCULOSKELETAL: Multilevel degenerative arthropathy of the visualized lower thoracic and lumbar spine. Chronic bilateral pars defects of L5, L5-S1 degenerative disc disease and grade 2 anterolisthesis of L5 on S1. Osteoarthritis of the hips (right worse than left). There is fibrotic thickening of the left iliotibial band and a trace amount of fluid overlies the iliotibial band lateral to the greater trochanter. There appears to be a linear opacity of likely chronic scarring in the subcutaneous tissue posterior to the left gluteus joseline. Also, there are somewhat linear opacity further medially overlying the gluteus joselien, possible sequela of remote soft tissue trauma. There is edema of the subcutaneous tissues lateral to the region of the greater trochanter of the right hip. CT/CT abdomen pelvis wo IV con IMPRESSION: * No evidence of urolithiasis or urinary tract obstruction. * Cholelithiasis without cholecystitis. * Multiple diverticula of the colon without evidence of diverticulitis. 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
[2024-01-23 11:37] VITALS: BP 100/80; BP 104/62; PULSE 73; PULSE 85; RESP 18; TEMP 37.4; O2SAT 88; O2SAT 92; BMI 26.9
[2024-01-23 12:00] VITALS: BP 114/56; PULSE 82; RESP 18; O2SAT 95
--- NOTE | 2024-01-23 12:07 | PC.NURSE ---
Patient from home with complaints of weakness and falls x 3 days. Denies headstrike states just falls forward on to his knees and cant get up. Reports has taken laxatives for years but states has not been sleeping well because he has been having so many loose stools. Per EMS sating 88%on RA, placed on 2 liters NC
--- NOTE | 2024-01-23 12:37 | ECG_ITS ---
Test Reason : WEAKNESS Blood Pressure : / mmHG Vent. Rate : 079 BPM Atrial Rate : 079 BPM P-R Int : 160 ms QRS Dur : 074 ms QT Int : 390 ms P-R-T Axes : 017 -15 042 degrees QTc Int : 447 ms Normal sinus rhythm Inferior infarct , age undetermined Cannot rule out Anterior infarct , age undetermined Abnormal ECG When compared with ECG of 15-OCT-2023 22:37, No significant change was found Referred By: Sita Haji Electronically Signed By:Johnie Cantrell
[2024-01-23 13:11] LABS: Hematocrit 50.8 % (42.0-52.0); Hemoglobin 17.1 g/dl (14.0-18.0); Mean Corpuscular HGB Conc 33.7 g/dl (31.0-36.0); Mean Corpuscular Hemoglobin 30.9 pg (27.0-33.0); Mean Corpuscular Volume 91.9 fL (80.0-98.0); Mean Platelet Volume 11.8 fL (9.4-12.4); Platelet Count 278 X10*3/uL (160-400); Red Blood Count 5.53 X10*6/uL (4.60-5.80); White Blood Count 20.9 X10*3/uL (4.8-10.8)
[2024-01-23] MEDS: 0.9 % Sodium Chloride 1,000 ML 999 ML IV ×2 (13:11→13:58)
[2024-01-23 13:28] LABS: Lactic Acid 1.6 mmol/L (0.5-2.0)
[2024-01-23] MEDS: cefTRIAXone sodium 2 GM in 0.9 % Sodium Chloride 50 ML IV (13:28)
--- NOTE | 2024-01-23 13:28 | ED.WEAKNESS ---
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 No travel, no antibiotic use. He states he is very weak MD Complaint: generalized weakness Onset (ago): day(s) (3) Duration: constant Location: generalized Severity: moderate Relieving factors: rest Exacerbating factors: movement Context: recent illness Associated symptoms: loss of appetite and other (diarrhea, cough, weakness, malaise, anorexia, falls) Related Data Home Medications ?Medication ?Instructions ?Recorded ?Confirmed ascorbic acid (vitamin C) 500 mg 500 mg PO DAILY 11/21/22 10/25/23 tablet (Vitamin C) aspirin 81 mg tablet,delayed 81 mg PO DAILY 11/21/22 10/25/23 release cholecalciferol (vitamin D3) 50 50 mcg PO DAILY 11/21/22 10/25/23 mcg (2,000 unit) capsule (Vitamin D3) gabapentin 300 mg capsule mg PO 11/21/22 10/25/23 lisinopril 5 mg tablet 5 mg PO DAILY 11/21/22 10/25/23 lovastatin 40 mg tablet 40 mg PO DAILY 11/21/22 10/25/23 metoprolol tartrate 50 mg tablet 50 mg PO DAILY 11/21/22 10/25/23 polyethylene glycol 3350 17 g PO 11/21/22 02/15/23 gram/dose oral powder sertraline 50 mg tablet 50 mg PO DAILY 11/21/22 10/25/23 trazodone 50 mg tablet 50 mg PO BEDTIME 11/21/22 02/15/23 Previous Rx's ?Medication ?Instructions ?Recorded lidocaine 5 % topical patch 1 patch topical DAILY #15 ea 08/25/23 (Lidoderm) acetaminophen 325 mg capsule 650 mg (2 x 325 mg) PO Q4H PRN 10/15/23 (Tylenol) pain #30 caps azithromycin 250 mg tablet See Rx Instructions PO .COMPLEX #6 10/15/23 tabs lidocaine 5 % topical patch 1 patch topical DAILY PRN pain #15 10/15/23 ea Allergies Allergy/AdvReac Type Severity Reaction Status Date / Time No Known Allergies Allergy Mild NONE Verified 01/23/24 11:45 Review of Systems Review of Systems: Constitutional : No Fever, No Chills, pos Fatigue, pos anorexia ENT/Mouth : No sore throat, No Rhinorrhea Eyes: No Eye Pain, No Swelling, No Redness Cardiovascular : No Chest Pain, No SOB, No Dyspnea on Exertion Respiratory : No Cough, No Sputum Gastrointestinal : No Nausea, No Vomiting, pos Diarrhea, No abdominal Pain Genitourinary : No Dysuria, No Urinary Frequency, No Hematuria, Musculoskeletal : No joint pain, No Myalgias, No Joint Swelling Skin : No Skin Lesions, No rash Neuro : pos Weakness, No Numbness, No Dizziness, no Headache Psych : No Anxiety/Panic, No Depression All other systems reviewed and are negative [facility] Past Medical History Attestation statement: The following information was validated with the patient. 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 H/O brain surgery Family History Family History Mother Cancer Sister Cancer Social History Social History Alcohol intake: former Patient Tobacco Use Status: Never used Tobacco Smoked in Last 30 Days: No Use of substances other than those prescribed or required for medical reasons: No Advance Directives: Yes Advance Directives Information Provided: Yes Advance Directives on File: No Current occupational status: 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 No acute distress. Eyes: Pupils equal, round and reactive to light. ENT: Pharynx very dry MM. Atraumatic but noted prior craniotomies Neck: Normal inspection. Neck supple. CVS: Normal heart rate and rhythm. Pulses normal. Respiratory: No respiratory distress. Breath sounds diminished left base, intermittent coughing Abdomen: Soft and nontender. Skin: Skin warm and dry. pale skin color. poor skin turgor. Extremities: No lower extremity edema. No calf ttp Neuro: Oriented X 3. No motor deficit. No sensory deficit. Course Course Course Narrative: infection suspected at 128pm IV ceftriaxone ordered. Reevaluation(s) Reevaluation #1: no rise in troponin likely demand from sepsis and acute renal failure mucousy bloody streaked diarrhea x 1 small - not on thinners CT scan of abdomen ordered acute renal failure CPK pending still tarango ordered Medications Administered Discontinued Medications Generic Name Dose Route Start Last Admin Trade Name Freq PRN Reason Stop Dose Admin Sodium Chloride 1,000 mls @ 999 mls/hr 01/23/24 12:36 01/23/24 15:44 Ns IV 01/23/24 13:36 Infused .Q1H1M ONE Infusion Ceftriaxone Sodium 2 gm/ 50 mls @ 100 mls/hr 01/23/24 13:22 01/23/24 15:44 Sodium Chloride IV 01/23/24 13:51 Infused ONCE ONE Infusion Sodium Chloride 1,000 mls @ 999 mls/hr 01/23/24 13:25 01/23/24 15:44 Ns IV 01/23/24 14:25 Infused .Q1H1M ONE Infusion Medical Decision Making Medical Decision Making MDM Narrative: 68 yo male hx of gait disorder and frequent falls uses a walker, 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 UA ordered. Metabolic or toxic encephalopathy. Differential Diagnosis Differential Diagnoses: The differential diagnosis associated with the presentation includes pneumonia, UTI, c diff, RU, anemia Admission/Observation Consideration of admission/observation: Escalation of care including admission/observation considered will admit for further workup placed on NS fluids and HCO3 drip tarango ordered he did make some urine though very dark CT scan ordered of abdomen Dr. Gallardo will follow up on CT scan Consult Healthcare Provider Management of the patient was discussed with: Hospitalist (will admit) Lab Data MDM Lab Attestation statement: I reviewed the patient's lab results. 01/23/24 13:02 01/23/24 15:09 Labs: Lab Results 01/23/24 01/23/24 01/23/24 Range/Units 13:02 13:46 15:09 WBC 20.9 H (4.8-10.8) X10*3/uL RBC 5.53 (4.60-5.80) X10*6/uL Hgb 17.1 (14.0-18.0) g/dl Hct 50.8 (42.0-52.0) % MCV 91.9 (80.0-98.0) fL MCH 30.9 (27.0-33.0) pg MCHC 33.7 (31.0-36.0) g/dl RDW 13.0 (11.0-16.0) % Plt Count 278 D (160-400) X10*3/uL MPV 11.8 (9.4-12.4) fL Immature Gran % (Auto) Cancelled Neut % (Auto) Cancelled Lymph % (Auto) Cancelled [place] % (Auto) Cancelled Eos % (Auto) Cancelled Baso % (Auto) Cancelled Lymph # (Auto) Cancelled [place] # (Auto) Cancelled Eos # (Auto) Cancelled Baso # (Auto) Cancelled Abs Immat Gran (auto) Cancelled Absolute Neuts (auto) Cancelled Absolute Nucleated RBC 0.000 (0.0-0.012) X10*3/uL Nucleated RBC % (auto) 0.0 (0.0-0.2) /100WBC Neutrophils % (Manual) 77 H (45-73) % Band Neutrophils % 15 H (3-5) % Lymphocytes % (Manual) 5 L (20-40) % Monocytes % (Manual) 3 (2-11) % Abs Neuts (Manual) 19.2 H (2.0-8.3) X10*3/uL Lymphocytes # (Manual) 1.0 L (1.2-4.9) X10*3/uL Monocytes # (Manual) 0.6 (0.1-1.2) X10*3/uL Toxic Vacuolation PRESENT Platelet Estimate NORMAL (NORMAL) Plt Morphology Comment NORMAL RBC Morphology NOTED [place] Cells 1+ (0-2) /OIF PT 13.2 (11.1-13.3) SEC INR 1.1 (0.9-1.1) Sodium 141 (135-145) mmol/L Potassium 4.1 (3.3-5.1) mmol/L Chloride 108 (96-108) mmol/L Carbon Dioxide 17 L (22-29) mmol/L Anion Gap 20 (12-20) BUN 90 H (9-16) mg/dL Creatinine 4.14 H* (0.5-1.4) mg/dL Estim Creat Clear Calc 17.1 Estimated GFR 14 Random Glucose 144 H (60-115) mg/dL Lactic Acid 1.6 (0.5-2.0) mmol/L Calcium 8.3 L D (8.4-10.2) mg/dL Magnesium 2.7 H (1.6-2.6) mg/dL Total Bilirubin 0.7 (0.0-1.0) mg/dL Direct Bilirubin 0.2 (0.0-0.5) mg/dL AST 306 H (5-37) U/L ALT 80 H (0-40) U/L Alkaline Phosphatase 57 (39-117) U/L Troponin I High Sens 148.5 H* D 120.7 H* (<3.5-35.0) ng/L C-Reactive Protein 14.99 H (< or = 0.50) mg/dL Total Protein 7.2 (6.5-8.0) g/dL Albumin 4.2 (3.5-5.0) g/dL Lipase 13 (8-78) U/L Ethyl Alcohol < 10 mg/dL Influenza Type A (PCR) NEGATIVE (Negative) Influenza Type B (PCR) NEGATIVE (Negative) RSV RNA Qual (PCR) NEGATIVE (Negative) SARS-CoV-2 RNA (RT-PCR) NEGATIVE (Negative) Independent Interpretation I performed an independent interpretation of an: EKG, Plain X-Ray (LL opacity) and CT Scan Interpretation: Rate: 79 Rhythm: NSR Atkins: left Normal P waves. Normal KIM. Normal QRS complex. ST T wave : no [place], normal qTC: 447 prior studies: no acute ischemia The study has been interpreted contemporaneously by me. . Radiology Impression Discussion of test interpretation with radiology: I have reviewed the radiologist's reading. Independent Historian Clinical information obtained from an independent historian. History obtained from or confirmed by: EMS External Record Review External record reviewed: Inpatient record Critical Care Time Critical Care Time Critical Care Time: Yes Total Critical Care Time: 60 Attestation: repeat labs, IVF x 2L, resuscitation, admission, review of records, HCO3 drip I attest to this time spent taking care of the patient Discharge Plan Discharge Clinical Impression: Elevated WBC count, Elevated troponin, RU (acute kidney injury), Bandemia, Bloody stool, Rhabdomyolysis Patient Disposition: Admitted As Inpatient Prescriptions: No Action lidocaine [Lidoderm] 5 % adhesive patch,medicated 1 patch topical DAILY Qty: 15 0RF Rx Instructions: leave on most painful area for up to 12 hrs lidocaine 5 % adhesive patch,medicated 1 patch topical DAILY PRN (Reason: pain) Qty: 15 0RF Rx Instructions: leave on most painful area for up to 12 hrs acetaminophen [Tylenol] 325 mg capsule 650 mg PO Q4H PRN (Reason: pain) Qty: 30 0RF azithromycin 250 mg tablet See Rx Instructions .ROUTE .COMPLEX Qty: 6 0RF Rx Instructions: For 250 mg dose pack: take 500 mg today (day 1), then 250 mg for 4 days (days 2-5) sertraline 50 mg tablet 50 mg PO DAILY ascorbic acid (vitamin C) [Vitamin C] 500 mg tablet 500 mg PO DAILY lovastatin 40 mg tablet 40 mg PO DAILY metoprolol tartrate 50 mg tablet 50 mg PO DAILY lisinopril 5 mg tablet 5 mg PO DAILY gabapentin 300 mg capsule PO trazodone 50 mg tablet 50 mg PO BEDTIME aspirin 81 mg tablet,delayed release (DR/EC) 81 mg PO DAILY polyethylene glycol 3350 17 gram/dose powder PO cholecalciferol (vitamin D3) [Vitamin D3] 50 mcg (2,000 unit) capsule 50 mcg PO DAILY Print Language: Luxembourgish
[2024-01-23 13:37] LABS: Neutrophils Percent Manual 77 % (45-73)
[2024-01-23 13:39] LABS: Band Neutrophils Percent 15 % (3-5); Lymphocytes Percent Manual 5 % (20-40); Monocytes Absolute Manual 0.6 X10*3/uL (0.1-1.2); Monocytes Percent Manual 3 % (2-11); Neutrophils Absolute Manual 19.2 X10*3/uL (2.0-8.3)
[2024-01-23 13:41] LABS: Burr Cells 1+ (0-2) /OIF; Platelet Estimate NORMAL (NORMAL); Platelet Morphology Comment NORMAL; RBC Morphology NOTED
[2024-01-23 13:42] LABS: Toxic Vacuolation PRESENT
[2024-01-23 13:46] LABS: Troponin-I High Sensitivity 148.5 ng/L (<3.5-35.0)
[2024-01-23 13:50] LABS: Influenza A PCR NEGATIVE (Negative); Influenza B PCR NEGATIVE (Negative); Resp Syncy Virus RNA Qual PCR NEGATIVE (Negative); SARS COV2 PCR INHOUSE NEGATIVE (Negative)
[2024-01-23 14:03] LABS: INTERNATIONAL NORM RATIO 1.1 (0.9-1.1); Prothrombin Time 13.2 SEC (11.1-13.3)
--- NOTE | 2024-01-23 14:07 | PC.NURSE ---
Provider aware of labs continuing to hemolyze, stating to wait until 2 liters have infused and try again
[2024-01-23 15:25] LABS: Ethanol < 10 mg/dL
[2024-01-23 15:38] LABS: Alanine Aminotransferase 80 U/L (0-40); Albumin Level 4.2 g/dL (3.5-5.0); Alkaline Phosphatase 57 U/L (39-117); Anion Gap 20 (12-20); Aspartate Amino Transferase 306 U/L (5-37); Bilirubin Direct 0.2 mg/dL (0.0-0.5); Bilirubin Total 0.7 mg/dL (0.0-1.0); Blood Urea Nitrogen 90 mg/dL (9-16); C Reactive Protein 14.99 mg/dL (< or = 0.50); Calcium 8.3 mg/dL (8.4-10.2); Carbon Dioxide 17 mmol/L (22-29); Chloride 108 mmol/L (96-108); Glucose Random 144 mg/dL (60-115); Lipase 13 U/L (8-78); Magnesium 2.7 mg/dL (1.6-2.6); Total Protein 7.2 g/dL (6.5-8.0)
[2024-01-23 15:39] LABS: Potassium 4.1 mmol/L (3.3-5.1); Sodium 141 mmol/L (135-145)
[2024-01-23 15:41] LABS: Troponin-I High Sensitivity 120.7 ng/L (<3.5-35.0)
[2024-01-23 15:42] LABS: Creatinine Clr Calc Pharmacy 17.1; Estimated Glomerular Filt Rate 14
[2024-01-23 15:46] LABS: Appearance Urine Turbid; Color Urine Dark Yellow; Glucose Urine UA Negative (Negative); Leukocyte Esterase Urine Trace (Negative); Nitrite Urine Negative (Negative); UMIC TRIGGER UACC YES; Urine Blood Large (3+) (Negative); Urine Ketones Trace mg/dL (Negative); Urine Protein 100 (2+) mg/dL (Neg-Trace)
[2024-01-23 15:51] LABS: OBS Int Ctl Valid YES; OBS1 POSITIVE (NEGATIVE)
[2024-01-23 16:06] VITALS: BP 111/68; PULSE 84; RESP 18; TEMP 36.8; O2SAT 93
[2024-01-23 16:14] LABS: Bacteria Urine None Seen (None Seen); Calcium Oxalate Crystals Urine Present; Hyaline Casts Urine 0-2 /LPF (0-2); Other Crystals Urine Present; RBC Urine 0-2 /HPF (0-2); WBC Urine 0-5 /HPF (0-5)
[2024-01-23] MEDS: Azithromycin 500 MG in 0.9 % Sodium Chloride 250 ML 125 MG IV (16:25)
[2024-01-23 16:34] LABS: CDiff Gene PCR NEGATIVE (Negative)
[2024-01-23] MEDS: Sodium Bicarbonate 8.4% 150 MEQ in Dextrose 5 % 850 ML 100 MEQ IV (16:44)
[2024-01-23 16:46] LABS: Procalcitonin 4.71 ng/mL
--- NOTE | 2024-01-23 16:47 | PC.NURSE ---
Per provider Darren run NS at 50mls/hr
[2024-01-23] MEDS: 0.9 % Sodium Chloride 1,000 ML 75 ML IVCONT ×2 (17:16→18:06)
--- NOTE | 2024-01-23 17:42 | P.HPHOSP_ITS ---
History of Present Illness Date of Service: 01/23/24 Chief Complaint: Diarrhea, fall A 68 years old male with PMH of HTN, bladder CA, subdural hematoma s\p crainotomy, gait problem among others who presents to hospital after sustaining a fall at home after few days of diarrhea. He was very weak to participate with history but reported feeling sick to his stomach for the last 4 days or so with ongoing diarrhea every 2-3 hours which was soft and brown in color but then became bloody. He was feeling dizzy and nausous and was not able to tolerate diet. Fell few times and had to call EMS as he could not get up after the last fall. In ED found to have RU with elevated CK and Elevated WBCs w bandemia. Elevated Troponin that trended down with repeat. Admitted for further evaluation and treatment. 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 Meds Allergies Allergy/AdvReac Type Severity Reaction Status Date / Time No Known Allergies Allergy Mild NONE Verified 01/23/24 11:45 Active Medications: Current Medications Al Hydroxide/Mg Hydroxide (Magnesium Hydrox/Alum Hydrox 30 Ml Oral.Susp) 30 ml PO Q4H PRN PRN Reason: Heartburn Azithromycin 500 mg/ Sodium (Chloride) 250 mls @ 125 mls/hr IV ONCE ONE Stop: 01/23/24 18:02 Last Admin: 01/23/24 16:25 Dose: 125 mls/hr Sodium Bicarbonate 150 meq/ (Dextrose) 1,000 mls @ 100 mls/hr IV .Q10H KYLE Last Admin: 01/23/24 16:44 Dose: 100 mls/hr Sodium Chloride (Ns) 1,000 mls @ 75 mls/hr IVCONT .[id number] KYLE Metronidazole (Flagyl) 500 mg in 100 mls @ 100 mls/hr IV Q8H KYLE Ondansetron HCl (Ondansetron Hcl 4 Mg/2 Ml Vial) 4 mg IVPUSH Q8H PRN PRN Reason: Nausea and Vomiting Home Medications ?Medication ?Instructions ?Recorded ?Confirmed ?Last Taken ?Type ascorbic acid (vitamin C) 500 mg 500 mg PO DAILY 11/21/22 01/23/24 01/22/24 History tablet (Vitamin C) aspirin 81 mg tablet,delayed 81 mg PO DAILY 11/21/22 01/23/24 01/22/24 History release cholecalciferol (vitamin D3) 50 50 mcg PO DAILY 11/21/22 01/23/24 01/22/24 History mcg (2,000 unit) capsule (Vitamin D3) gabapentin 300 mg capsule 300 mg PO BID 11/21/22 01/23/24 01/22/24 History lisinopril 5 mg tablet 5 mg PO DAILY 11/21/22 01/23/24 01/22/24 History lovastatin 40 mg tablet 40 mg PO DAILY 11/21/22 01/23/24 01/22/24 History metoprolol tartrate 50 mg tablet 25 mg PO BID 11/21/22 01/23/24 01/22/24 History sertraline 50 mg tablet 50 mg PO DAILY 11/21/22 01/23/24 01/22/24 History trazodone 50 mg tablet 50 mg PO BEDTIME 11/21/22 01/23/24 01/22/24 History polyethylene glycol 3350 17 17 g PO DAILY PRN Constipation 01/23/24 01/23/24 Unknown History gram/dose oral powder (Miralax) Physical Exam 2 Vital Signs and Narrative: Vital Signs: Last Vital Signs Temp 98.3 F 01/23/24 16:06 Pulse 84 01/23/24 16:06 Resp 18 01/23/24 16:06 BP 111/68 01/23/24 16:06 Pulse Ox 93 01/23/24 16:06 O2 Del Method Room Air 01/23/24 16:06 Oxygen Flow Rate 2 01/23/24 11:37 BMI result Body Mass Index 26.9 Const: Other: Constitutional : Awake, interactive, not in distress Neck : Normal inspection, Supple Cardiovascular : RRR, no JVP, no lower extremity edema Respiratory : good bilateral air entry, no crackles, wheezes or rhonchi Gastrointestinal: soft, lax, Normal bowel sounds, Non tender Skin : Warm, Dry Neurological : Alert & oriented to self and place, No focal deficit Results Labs 01/24/24 07:10 01/24/24 07:10 Labs: Laboratory Results - last 24 hr 01/23/24 01/23/24 01/23/24 13:02 13:46 15:09 MCV 91.9 MCH 30.9 MCHC 33.7 RDW 13.0 Plt Count 278 D MPV 11.8 Immature Gran % (Auto) Cancelled Neut % (Auto) Cancelled Lymph % (Auto) Cancelled [place] % (Auto) Cancelled Eos % (Auto) Cancelled Baso % (Auto) Cancelled Lymph # (Auto) Cancelled [place] # (Auto) Cancelled Eos # (Auto) Cancelled Baso # (Auto) Cancelled Abs Immat Gran (auto) Cancelled Absolute Neuts (auto) Cancelled Absolute Nucleated RBC 0.000 Nucleated RBC % (auto) 0.0 Neutrophils % (Manual) 77 H Band Neutrophils % 15 H Lymphocytes % (Manual) 5 L Monocytes % (Manual) 3 Abs Neuts (Manual) 19.2 H Lymphocytes # (Manual) 1.0 L Monocytes # (Manual) 0.6 Toxic Vacuolation PRESENT Platelet Estimate NORMAL Plt Morphology Comment NORMAL RBC Morphology NOTED [place] Cells 1+ (0-2) PT 13.2 INR 1.1 Anion Gap 20 Estim Creat Clear Calc 17.1 Estimated GFR 14 Random Glucose 144 H Lactic Acid 1.6 Calcium 8.3 L D Magnesium 2.7 H Total Bilirubin 0.7 Direct Bilirubin 0.2 AST 306 H ALT 80 H Alkaline Phosphatase 57 Total Creatine Kinase 51248 H Troponin I High Sens 148.5 H* D 120.7 H* C-Reactive Protein 14.99 H Total Protein 7.2 Albumin 4.2 Lipase 13 Procalcitonin 4.71 Urine Color Urine Appearance Urine pH Ur Specific [place] Urine Protein Urine Glucose (UA) Urine Ketones Urine Blood Urine Nitrite Ur Leukocyte Esterase Urine RBC Urine WBC Ur Squamous Epith Cells Calcium Oxalate Crystal Other Crystals Urine Bacteria Hyaline Casts Stool Occult Blood Ethyl Alcohol < 10 C. difficile Tox B Gene Influenza Type A (PCR) NEGATIVE Influenza Type B (PCR) NEGATIVE RSV RNA Qual (PCR) NEGATIVE SARS-CoV-2 RNA (RT-PCR) NEGATIVE 01/23/24 15:36 MCV MCH MCHC RDW Plt Count MPV Immature Gran % (Auto) Neut % (Auto) Lymph % (Auto) [place] % (Auto) Eos % (Auto) Baso % (Auto) Lymph # (Auto) [place] # (Auto) Eos # (Auto) Baso # (Auto) Abs Immat Gran (auto) Absolute Neuts (auto) Absolute Nucleated RBC Nucleated RBC % (auto) Neutrophils % (Manual) Band Neutrophils % Lymphocytes % (Manual) Monocytes % (Manual) Abs Neuts (Manual) Lymphocytes # (Manual) Monocytes # (Manual) Toxic Vacuolation Platelet Estimate Plt Morphology Comment RBC Morphology Du Cells PT INR Anion Gap Estim Creat Clear Calc Estimated GFR Random Glucose Lactic Acid Calcium Magnesium Total Bilirubin Direct Bilirubin AST ALT Alkaline Phosphatase Total Creatine Kinase Troponin I High Sens C-Reactive Protein Total Protein Albumin Lipase Procalcitonin Urine Color Dark Yellow Urine Appearance Turbid Urine pH 5.0 Ur Specific [place] 1.020 Urine Protein 100 (2+) H Urine Glucose (UA) Negative Urine Ketones Trace Urine Blood Large (3+) H Urine Nitrite Negative Ur Leukocyte Esterase Trace H Urine RBC 0-2 Urine WBC 0-5 Ur Squamous Epith Cells 3-5 Calcium Oxalate Crystal Present Other Crystals Present Urine Bacteria None Seen Hyaline Casts 0-2 Stool Occult Blood POSITIVE Ethyl Alcohol C. difficile Tox B Gene NEGATIVE Influenza Type A (PCR) Influenza Type B (PCR) RSV RNA Qual (PCR) SARS-CoV-2 RNA (RT-PCR) Imaging Radiologist's Impressions: Impressions Chest X-Ray 01/23/24 13:30 IMPRESSION: Query early left basilar infiltrate for which follow-up PA lateral would be advised. Cervical Spine CT 01/23/24 13:39 IMPRESSION: * No intracranial hemorrhage or other acute intracranial pathology compared to 07/27/2023. * No fracture or malalignment in the degenerated cervical spine. * There is a healing nondisplaced fracture of the medial left first rib. Head CT 01/23/24 13:39 IMPRESSION: * No intracranial hemorrhage or other acute intracranial pathology compared to 07/27/2023. * No fracture or malalignment in the degenerated cervical spine. * There is a healing nondisplaced fracture of the medial left first rib. Abdomen/Pelvis CT 01/23/24 16:21 IMPRESSION: * No evidence of urolithiasis or urinary tract obstruction. * Cholelithiasis without cholecystitis. * Multiple diverticula of the colon without evidence of diverticulitis. 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 Assessment and Plan (1) Rhabdomyolysis: Qualifiers: Rhabdomyolysis type: non-traumatic Qualified Code(s): M62.82 - Rhabdomyolysis Status: Acute (2) Bloody stool: Status: Acute (3) Bandemia: Status: Acute (4) Elevated troponin: Status: Acute (5) RU (acute kidney injury): Status: Acute (6) Elevated WBC count: Qualifiers: Leukocytosis type: unspecified Qualified Code(s): D72.829 - Elevated white blood cell count, unspecified Status: Acute Plan A 68 years old male with PMH of HTN, bladder CA, subdural hematoma s\p crainotomy, gait problem among others who presents to hospital after sustaining a fall at home after few days of diarrhea. Bloody diarrhea CT scan not showing any acute findings , no anemia could be hemorroidal, infx , diverticular monitor frequency and consult GI if recurrent follow H&H Acute kidney injury 2/2 Acute [place]habdom[place] [address], Cr 4.1 from 1, CO of 17 start IVF and follow trend CK consult Nephro if no improvement monitor I\O Leukocytosis with Bandemia GI is likely source of infection, could have viral\bacterial infx, no other criteria for sepsis Has elevated CRP as well Empirical Metronidazole for now received Francoise + Ceftriaxone pending stool panel Elevated Trop I, Transaminitis 2/2 rhabdomyolysis not due to sepsis trended down follow LFT Hypermagnesemis dehydration IVF and recheck Aortic aneurysm noticed on CT scan, needs vascular eval in\out patient. DVT PPx SCD The patient needs 2 overnight hospital stay for evaluation of above problem pending final cultures and kidney function improvement Quality Stroke Does the patient have a stroke diagnosis?: No VTE Prior VTE?: No VTE Risk Level:: Medical - moderate - high VTE Device Contraindication: N/A - Device Ordered VTE Drug Contraindication: Treatment Not Indicated
--- NOTE | 2024-01-23 17:46 | PHA.MEDREC ---
Pharmacy Consult ? Medication Reconciliation Pharmacy has completed the medication reconciliation. Spoke to patient to confirm med list. Patient states he takes Metoprolol 25 mg bid, Gabapentin 300 mg bid.
[2024-01-23] MEDS: metroNIDAZOLE/NS 500 MG/100 ML PIGGYBACK 100 MG IV (19:10)
[2024-01-23 20:27] VITALS: BP 106/59; PULSE 82; RESP 16; TEMP 36.8; O2SAT 95
[2024-01-23 21:47] VITALS: BP 120/61; PULSE 73; RESP 17; TEMP 37.1; O2SAT 93
[2024-01-24 01:39] VITALS: BMI 26.3
[2024-01-24] MEDS: metroNIDAZOLE/NS 500 MG/100 ML PIGGYBACK 100 MG IV ×3 (02:36→17:38)
[2024-01-24] MEDS: Sodium Bicarbonate 8.4% 150 MEQ in Dextrose 5 % 850 ML 100 MEQ IV (02:47)
[2024-01-24 03:55] VITALS: BP 116/60; PULSE 77; RESP 16; TEMP 36.9; O2SAT 92
[2024-01-24 07:14] VITALS: BP 100/61; PULSE 84; RESP 14; TEMP 36.6; O2SAT 94
[2024-01-24 07:37] LABS: MANUAL DIFF FLAG NO
[2024-01-24 07:46] LABS: Basophils Percent Auto 0.3 % (0-2); Eosinophils Percent Auto 0.2 % (0-4); Hematocrit 41.9 % (42.0-52.0); Hemoglobin 14.2 g/dl (14.0-18.0); Imm Gran Abs Auto 0.05 X10*3/uL (0.00-0.03); Imm Gran Pct Auto 0.5 % (0.0-0.4); Lymphocytes Absolute Auto 0.9 X10*3/uL (1.2-4.9); Lymphocytes Percent Auto 8.3 % (20-40); Mean Corpuscular HGB Conc 33.9 g/dl (31.0-36.0); Mean Corpuscular Hemoglobin 30.8 pg (27.0-33.0); Mean Corpuscular Volume 90.9 fL (80.0-98.0); Mean Platelet Volume 11.9 fL (9.4-12.4); Monocytes Absolute Auto 0.6 X10*3/uL (0.1-1.2); Monocytes Percent Auto 5.7 % (2-11); Neutrophils Absolute Auto 9.2 x10*3/uL (2.0-8.3); Platelet Count 164 X10*3/uL (160-400); Red Blood Count 4.61 X10*6/uL (4.60-5.80); Red Cell Distribution Width 13.1 % (11.0-16.0); White Blood Count 10.8 X10*3/uL (4.8-10.8)
[2024-01-24 07:51] LABS: INTERNATIONAL NORM RATIO 1.1 (0.9-1.1); Prothrombin Time 13.1 SEC (11.1-13.3)
[2024-01-24 07:56] LABS: Glucose, Whole Blood 109 mg/dL (60-115)
[2024-01-24 08:08] LABS: Alanine Aminotransferase 68 U/L (0-40); Albumin Level 3.4 g/dL (3.5-5.0); Alkaline Phosphatase 49 U/L (39-117); Aspartate Amino Transferase 219 U/L (5-37); Bilirubin Total 0.5 mg/dL (0.0-1.0); Blood Urea Nitrogen 77 mg/dL (9-16); C Reactive Protein 13.59 mg/dL (< or = 0.50); Calcium 7.5 mg/dL (8.4-10.2); Creatinine Clr Calc Pharmacy 29.8; Estimated Glomerular Filt Rate 27; Glucose Random 109 mg/dL (60-115); Magnesium 2.3 mg/dL (1.6-2.6); Total Protein 5.9 g/dL (6.5-8.0)
[2024-01-24 08:27] LABS: Anion Gap 14 (12-20); Carbon Dioxide 23 mmol/L (22-29); Chloride 106 mmol/L (96-108); Potassium 3.2 mmol/L (3.3-5.1); Sodium 140 mmol/L (135-145)
[2024-01-24] MEDS: 0.9 % Sodium Chloride 1,000 ML 75 ML IVCONT (10:20)
--- NOTE | 2024-01-24 13:39 | P.PNIM_ITS ---
Subjective Subjective Date of Service: 01/24/24 Interval History: seen and evaluated feels better overall able to participate with PT Cr improving Review of Systems Review of Systems: Yes all other systems are reviewed and are negative Physical Exam 2 Vital Signs: Vital Signs: Last Vital Signs Temp 97.9 F 01/24/24 07:14 Pulse 84 01/24/24 07:14 Resp 14 01/24/24 07:14 BP 100/61 01/24/24 07:14 Pulse Ox 94 01/24/24 07:14 O2 Del Method Room Air 01/24/24 07:14 Oxygen Flow Rate 2 01/23/24 11:37 BMI result Body Mass Index 26.3 Const: Other: Constitutional : Awake, interactive, not in distress Neck : Normal inspection, Supple Cardiovascular : RRR, no JVP, no lower extremity edema Respiratory : good bilateral air entry, no crackles, wheezes or rhonchi Gastrointestinal: soft, lax, Normal bowel sounds, Non tender Skin : Warm, Dry Neurological : Alert & oriented to self and place, No focal deficit Objective Data Active Medications Al Hydroxide/Mg Hydroxide (Magnesium Hydrox/Alum Hydrox 30 Ml Oral.Susp) 30 ml PO Q4H PRN PRN Reason: Heartburn Gabapentin (Gabapentin 100 Mg Capsule) 100 mg PO BID [facility] Sodium Chloride (Ns) 1,000 mls @ 75 mls/hr IVCONT .[id number] [facility] Last Admin: 01/24/24 10:20 Dose: 75 mls/hr Documented By: PRIYA Metronidazole (Flagyl) 500 mg in 100 mls @ 100 mls/hr IV Q8H [facility] Last Infusion: 01/24/24 12:26 Dose: Infused Documented By: PRIYA Metoprolol Tartrate (Metoprolol Tartrate 25 Mg Tablet) 25 mg PO BID [facility]; Protocol Ondansetron HCl (Ondansetron Hcl 4 Mg/2 Ml Vial) 4 mg IVPUSH Q8H PRN PRN Reason: Nausea and Vomiting Labs 01/24/24 07:10 01/24/24 07:10 Labs: Laboratory Results - last 24 hr 01/23/24 01/23/24 01/23/24 13:02 13:46 15:09 MCV MCH MCHC RDW Plt Count MPV Immature Gran % (Auto) Neut % (Auto) Lymph % (Auto) Latimer % (Auto) Eos % (Auto) Baso % (Auto) Lymph # (Auto) Latimer # (Auto) Eos # (Auto) Baso # (Auto) Abs Immat Gran (auto) Absolute Neuts (auto) Absolute Nucleated RBC Nucleated RBC % (auto) Neutrophils % (Manual) 77 H Band Neutrophils % 15 H Lymphocytes % (Manual) 5 L Monocytes % (Manual) 3 Abs Neuts (Manual) 19.2 H Lymphocytes # (Manual) 1.0 L Monocytes # (Manual) 0.6 Toxic Vacuolation PRESENT Platelet Estimate NORMAL Plt Morphology Comment NORMAL RBC Morphology NOTED Madison Cells 1+ (0-2) PT 13.2 INR 1.1 Anion Gap 20 Estim Creat Clear Calc 17.1 Estimated GFR 14 POC Glucose Random Glucose 144 H Calcium 8.3 L D Magnesium 2.7 H Total Bilirubin 0.7 Direct Bilirubin 0.2 AST 306 H ALT 80 H Alkaline Phosphatase 57 Total Creatine Kinase 42948 H Troponin I High Sens 148.5 H* D 120.7 H* C-Reactive Protein 14.99 H Total Protein 7.2 Albumin 4.2 Lipase 13 Procalcitonin 4.71 Urine Color Urine Appearance Urine pH Ur Specific Forrest Urine Protein Urine Glucose (UA) Urine Ketones Urine Blood Urine Nitrite Ur Leukocyte Esterase Urine RBC Urine WBC Ur Squamous Epith Cells Calcium Oxalate Crystal Other Crystals Urine Bacteria Hyaline Casts Stool Occult Blood Ethyl Alcohol < 10 C. difficile Tox B Gene Influenza Type A (PCR) NEGATIVE Influenza Type B (PCR) NEGATIVE RSV RNA Qual (PCR) NEGATIVE SARS-CoV-2 RNA (RT-PCR) NEGATIVE 01/23/24 01/24/24 01/24/24 15:36 07:10 07:12 MCV 90.9 MCH 30.8 MCHC 33.9 RDW 13.1 Plt Count 164 D MPV 11.9 Immature Gran % (Auto) 0.5 H Neut % (Auto) 85.0 H Lymph % (Auto) 8.3 L [place] % (Auto) 5.7 Eos % (Auto) 0.2 Baso % (Auto) 0.3 Lymph # (Auto) 0.9 L [place] # (Auto) 0.6 Eos # (Auto) 0.0 Baso # (Auto) 0.0 Abs Immat Gran (auto) 0.05 H Absolute Neuts (auto) 9.2 H Absolute Nucleated RBC 0.000 Nucleated RBC % (auto) 0.0 Neutrophils % (Manual) Band Neutrophils % Lymphocytes % (Manual) Monocytes % (Manual) Abs Neuts (Manual) Lymphocytes # (Manual) Monocytes # (Manual) Toxic Vacuolation Platelet Estimate Plt Morphology Comment RBC Morphology Madison Cells PT 13.1 INR 1.1 Anion Gap 14 Estim Creat Clear Calc 29.8 Estimated GFR 27 POC Glucose 109 Random Glucose 109 Calcium 7.5 L D Magnesium 2.3 Total Bilirubin 0.5 Direct Bilirubin AST 219 H ALT 68 H Alkaline Phosphatase 49 Total Creatine Kinase 19613 H Troponin I High Sens C-Reactive Protein 13.59 H Total Protein 5.9 L Albumin 3.4 L Lipase Procalcitonin Urine Color Dark Yellow Urine Appearance Turbid Urine pH 5.0 Ur Specific Forrest 1.020 Urine Protein 100 (2+) H Urine Glucose (UA) Negative Urine Ketones Trace Urine Blood Large (3+) H Urine Nitrite Negative Ur Leukocyte Esterase Trace H Urine RBC 0-2 Urine WBC 0-5 Ur Squamous Epith Cells 3-5 Calcium Oxalate Crystal Present Other Crystals Present Urine Bacteria None Seen Hyaline Casts 0-2 Stool Occult Blood POSITIVE Ethyl Alcohol C. difficile Tox B Gene NEGATIVE Influenza Type A (PCR) Influenza Type B (PCR) RSV RNA Qual (PCR) SARS-CoV-2 RNA (RT-PCR) Assessment and Plan (1) Rhabdomyolysis: Status: Acute (2) Bloody stool: Status: Acute (3) Bandemia: Status: Acute (4) RU (acute kidney injury): Status: Acute (5) Elevated troponin: Status: Acute (6) Elevated WBC count: Status: Acute Plan A 68 years old male with PMH of HTN, bladder CA, subdural hematoma s\p crainotomy, gait problem among others who presents to hospital after sustaining a fall at home after few days of diarrhea. Bloody diarrhea no recurrence overnight CT scan not showing any acute findings , no anemia could be hemorroidal, infx related monitor frequency and consult GI if recurrent follow H&H pending stool panel Acute kidney injury 2/2 Acute Rhabdomyolysis complicated with metabolic acidosis CK improved to 12k Cr improved to 2.8 IVF and trend CK consult Nephro if no improvement monitor I\O Leukocytosis with Bandemia GI is likely source of infection, could have viral\bacterial infx, no other criteria for sepsis Has elevated CRP as well Empirical Metronidazole for now pending stool panel Elevated Trop I, Transaminitis 2/2 rhabdomyolysis not due to sepsis trended down Hypermagnesemis 2/2 dehydration resolved Aortic aneurysm noticed on CT scan, needs vascular eval in\out patient. DVT PPx SCD The patient needs overnight hospital stay for evaluation of above problem pending final cultures and kidney function improvement Quality Stroke Does the patient have a stroke diagnosis?: No VTE Prior VTE?: No VTE Risk Level:: Medical - moderate - high VTE Device Contraindication: N/A - Device Ordered VTE Drug Contraindication: Treatment Not Indicated
[2024-01-24 13:51] LABS: Adenovirus F 40/41 Not Detected (Not Detect.); Astrovirus Not Detected (Not Detect.); Campylobacter Not Detected (Not Detect.); Cryptosporidium Not Detected (Not Detect.); Cyclospora cayetanensis Not Detected (Not Detect.); E. coli EAEC Not Detected (Not Detect.); E. coli EPEC Not Detected (Not Detect.); E. coli ETEC Not Detected (Not Detect.); E. coli STEC Not Detected (Not Detect.); Entamoeba histolytica Not Detected (Not Detect.); Giardia lamblia Not Detected (Not Detect.); Norovirus GI/GII Not Detected (Not Detect.); Plesiomonas shigelloides Not Detected (Not Detect.); Rotavirus A Not Detected (Not Detect.); Salmonella Not Detected (Not Detect.); Sapovirus Not Detected (Not Detect.); Shigella sp./EIEC Not Detected (Not Detect.); Vibrio Not Detected (Not Detect.); Vibrio Cholerae Not Detected (Not Detect.); Yersinia enterocolitica Not Detected (Not Detect.)
[2024-01-24 15:18] VITALS: BP 111/59; PULSE 84; RESP 18; TEMP 36.6; O2SAT 92
--- NOTE | 2024-01-24 15:19 | MHC.CM.PN ---
IMM delivered. Patient lives in an apartment alone. Ambulates w/ a walker. Has a shower chair. Has services through [facility] including: MOW and MESSAGE CLERK 9.5 hrs/wk (m-f). MESSAGE CLERK assists w/ personal hygiene and home making/grocery shopping. PCP Abel Beltran MD Patient completed HCP naming agents: 1) sister Silvia Estrada and 2) Janette Fuentes DP: PT rec STR. Patient is agreeable to plan. Preferences are: 1) [facility] 2) [facility] 3) [facility]. Referrals sent to facilities via [facility]. CM will continue to follow.
--- NOTE | 2024-01-24 16:47 | P.CONGS_ITS ---
History of Present Illness Consult details Consult date: 01/24/24 Requesting physician: Misael Grimaldo Narrative: 68-year-old male patient presenting after a fall at home, admitted to the hospitalist service. He has a past medical history of hypertension, bladder CA, subdural hematoma status post craniotomy and history of gait problems. Patient underwent a CT abdomen and pelvis was incidentally noted to have a saccular aneurysm of the abdominal aorta. Vascular consultation was requested. No previous CT abdomen and pelvis studies are available to compare. Patient denies any abdominal symptoms at this time. Review of Systems 2 Review of Systems: Yes all other systems are reviewed and are negative Constitutional: Constitutional: Denies chills, Denies fever(s), Denies poor appetite and Reports weakness Cardiovascular: Cardiovascular: Denies chest pain, Denies irregular heart rhythm, Denies palpitations and Denies dyspnea Respiratory: Respiratory: Denies cough, Denies excessive phlegm production and Denies dyspnea Gastrointestinal: Gastrointestinal: Denies abdominal pain, Denies bloating, Denies change in bowel habits, Denies constipation, Denies heartburn, Denies diarrhea, Denies nausea and Denies vomiting Genitourinary: Genitourinary: Denies difficulty urinating and Denies urinary frequency Musculoskeletal: Musculoskeletal: Denies back pain and Denies muscle weakness Integumentary/Breasts: Skin/Breast: Denies changing lesions and Denies unusual bruising Neurologic: Reports lack of coordination and Reports weakness Psychiatric: Psychiatric: Denies anxiety and Denies depression Endocrine: Endocrine: Denies palpitations Hematologic/Lymphatic: Hematologic/Lymphatic: Denies lymphadenopathy [facility] Past Medical History Medical History Falls Gait disorder Subdural hematoma Bladder cancer Hyperlipidemia Depressed High cholesterol High blood pressure Family History Family History Mother Cancer Sister Cancer Surgical History Surgical History S/P [employer] shunt H/O brain surgery Social History Social History Household Members: None Housing: Assisted Living Facility Do you presently have visiting nurse or other home services: No Alcohol intake: former Patient Tobacco Use Status: Never used Tobacco Smoked in Last 30 Days: No Use of substances other than those prescribed or required for medical reasons: No Currently Displaying Signs/Symptoms of Drug Intoxication Withdrawal: No Have you been hit, kicked, punched, or otherwise hurt by someone within the past year? 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 Meds Allergies Allergy/AdvReac Type Severity Reaction Status Date / Time No Known Allergies Allergy Mild NONE Verified 01/23/24 11:45 Active Medications: Current Medications Al Hydroxide/Mg Hydroxide (Magnesium Hydrox/Alum Hydrox 30 Ml Oral.Susp) 30 ml PO Q4H PRN PRN Reason: Heartburn Gabapentin (Gabapentin 100 Mg Capsule) 100 mg PO BID [facility] Sodium Chloride (Ns) 1,000 mls @ 75 mls/hr IVCONT .[id number] [facility] Last Admin: 01/24/24 10:20 Dose: 75 mls/hr Metronidazole (Flagyl) 500 mg in 100 mls @ 100 mls/hr IV Q8H [facility] Last Infusion: 01/24/24 12:26 Dose: Infused Metoprolol Tartrate (Metoprolol Tartrate 25 Mg Tablet) 25 mg PO BID [facility]; Protocol Ondansetron HCl (Ondansetron Hcl 4 Mg/2 Ml Vial) 4 mg IVPUSH Q8H PRN PRN Reason: Nausea and Vomiting Home Medications ?Medication ?Instructions ?Recorded ?Confirmed ?Last Taken ?Type ascorbic acid (vitamin C) 500 mg 500 mg PO DAILY 11/21/22 01/23/24 01/22/24 History tablet (Vitamin C) aspirin 81 mg tablet,delayed 81 mg PO DAILY 11/21/22 01/23/24 01/22/24 History release cholecalciferol (vitamin D3) 50 50 mcg PO DAILY 11/21/22 01/23/24 01/22/24 History mcg (2,000 unit) capsule (Vitamin D3) gabapentin 300 mg capsule 300 mg PO BID 11/21/22 01/23/24 01/22/24 History lisinopril 5 mg tablet 5 mg PO DAILY 11/21/22 01/23/24 01/22/24 History lovastatin 40 mg tablet 40 mg PO DAILY 11/21/22 01/23/24 01/22/24 History metoprolol tartrate 50 mg tablet 25 mg PO BID 11/21/22 01/23/24 01/22/24 History sertraline 50 mg tablet 50 mg PO DAILY 11/21/22 01/23/24 01/22/24 History trazodone 50 mg tablet 50 mg PO BEDTIME 11/21/22 01/23/24 01/22/24 History polyethylene glycol 3350 17 17 g PO DAILY PRN Constipation 01/23/24 01/23/24 Unknown History gram/dose oral powder (Miralax) Physical Exam 2 Vital Signs: Vital Signs: Last Vital Signs Temp 97.8 F 01/24/24 15:18 Pulse 84 01/24/24 15:18 Resp 18 01/24/24 15:18 BP 111/59 L 01/24/24 15:18 Pulse Ox 92 01/24/24 15:18 O2 Del Method Room Air 01/24/24 07:14 Oxygen Flow Rate 2 01/23/24 11:37 BMI result Body Mass Index 26.3 Const: General: cooperative and no acute distress Nutritional Appearance: w ell nourished Orientation/consciousness: patient oriented x3 Limitations: no limitations HEENT: Head: Yes normocephalic and Yes atraumatic Ears: hearing grossly normal bilaterally Resp: Effort & Inspection: normal respiratory effort, no audible wheezes, no cough and no respiratory distress Cardio: Jugular venous distension: no JVD GI: Inspection: Yes normal to inspection Palpation (GI): Soft to palpation, nontender, no guarding and not rigid Percussion: Yes normal to percussion Auscultation: normal bowel sounds Skin: Other: Warm, dry, no rash Neuro: General: patient oriented x3 Extrem: General: Yes no clubbing, cyanosis or edema Results Labs 01/24/24 07:10 01/24/24 07:10 Labs: Abnormal lab results 01/24/24 Range/Units 07:10 Hct 41.9 L (42.0-52.0) % Immature Gran % (Auto) 0.5 H (0.0-0.4) % Neut % (Auto) 85.0 H (45-73) % Lymph % (Auto) 8.3 L (20-40) % Lymph # (Auto) 0.9 L (1.2-4.9) X10*3/uL Abs Immat Gran (auto) 0.05 H (0.00-0.03) X10*3/uL Absolute Neuts (auto) 9.2 H (2.0-8.3) x10*3/uL Potassium 3.2 L D (3.3-5.1) mmol/L BUN 77 H (9-16) mg/dL Creatinine 2.38 H (0.5-1.4) mg/dL Calcium 7.5 L D (8.4-10.2) mg/dL AST 219 H (5-37) U/L ALT 68 H (0-40) U/L Total Creatine Kinase 75198 H (38-174) U/L C-Reactive Protein 13.59 H (< or = 0.50) mg/dL Total Protein 5.9 L (6.5-8.0) g/dL Albumin 3.4 L (3.5-5.0) g/dL Short CBC 01/24/24 Range/Units 07:10 WBC 10.8 (4.8-10.8) X10*3/uL Hgb 14.2 (14.0-18.0) g/dl Hct 41.9 L (42.0-52.0) % Plt Count 164 D (160-400) X10*3/uL BMP 01/24/24 07:10 Sodium 140 Potassium 3.2 L D Chloride 106 Carbon Dioxide 23 BUN 77 H Creatinine 2.38 H Calcium 7.5 L D Cardiac Enzymes 01/24/24 Range/Units 07:10 Total Creatine Kinase 48267 H (38-174) U/L Liver Function 01/24/24 Range/Units 07:10 Total Bilirubin 0.5 (0.0-1.0) mg/dL AST 219 H (5-37) U/L ALT 68 H (0-40) U/L Alkaline Phosphatase 49 (39-117) U/L Albumin 3.4 L (3.5-5.0) g/dL Urine 01/23/24 Range/Units 15:36 Urine Color Dark Yellow Urine Appearance Turbid Urine pH 5.0 (5.0-9.0) Ur Specific [place] 1.020 (1.005-1.025) Urine Protein 100 (2+) H (Neg-Trace) mg/dL Urine Glucose (UA) Negative (Negative) mg/dL All other labs normal. Assessment and Plan (1) Abdominal aortic aneurysm: Qualifiers: Abdominal aorta location: infrarenal aorta Presence of rupture: without rupture Qualified Code(s): I71.43 - Infrarenal abdominal aortic aneurysm, without rupture Status: Acute Plan Coverage for Dr. Santoyo. 68-year-old male patient presenting after a fall to the hospitalist service found incidentally to have a saccular abdominal aortic aneurysm. Patient is asymptomatic at this time. Recommend follow-up with Dr. Santoyo for further management of this aneurysm. Discussed finding in detail with the patient he expressed understanding and agrees with the plan. Procedures Date of Service Date of Service: 01/24/24
[2024-01-24 19:20] VITALS: BP 105/59; PULSE 91; RESP 18; TEMP 37; O2SAT 92
[2024-01-24 21:10] VITALS: BP 123/72; PULSE 87
[2024-01-24] MEDS: Metoprolol Tartrate 25 MG TABLET PO (21:10)
[2024-01-24] MEDS: Gabapentin 100 MG CAPSULE PO (21:10)
[2024-01-25] MEDS: Magnesium Hydrox/Alum Hydrox 30 ML ORAL.SUSP PO (01:25)
[2024-01-25] MEDS: metroNIDAZOLE/NS 500 MG/100 ML PIGGYBACK 100 MG IV ×2 (01:26→08:49)
[2024-01-25 04:00] VITALS: BP 134/72; PULSE 71; RESP 18; TEMP 36.8; O2SAT 92
[2024-01-25] MEDS: 0.9 % Sodium Chloride 1,000 ML 75 ML IVCONT (06:04)
[2024-01-25 06:21] LABS: Hematocrit 40.2 % (42.0-52.0); Hemoglobin 13.4 g/dl (14.0-18.0); Mean Corpuscular HGB Conc 33.3 g/dl (31.0-36.0); Mean Corpuscular Hemoglobin 30.5 pg (27.0-33.0); Mean Corpuscular Volume 91.6 fL (80.0-98.0); Mean Platelet Volume 12.1 fL (9.4-12.4); Platelet Count 137 X10*3/uL (160-400); Red Blood Count 4.39 X10*6/uL (4.60-5.80); Red Cell Distribution Width 12.8 % (11.0-16.0); White Blood Count 9.2 X10*3/uL (4.8-10.8)
[2024-01-25 06:40] LABS: Anion Gap 12 (12-20); Blood Urea Nitrogen 50 mg/dL (9-16); Calcium 7.9 mg/dL (8.4-10.2); Carbon Dioxide 25 mmol/L (22-29); Chloride 109 mmol/L (96-108); Creatinine Clr Calc Pharmacy 55.8; Estimated Glomerular Filt Rate 56; Glucose Random 96 mg/dL (60-115); Potassium 3.2 mmol/L (3.3-5.1); Sodium 143 mmol/L (135-145)
[2024-01-25 08:00] VITALS: BP 146/75; PULSE 70; RESP 14; TEMP 36.7; O2SAT 93
[2024-01-25] MEDS: Gabapentin 100 MG CAPSULE PO ×2 (08:48→20:30)
[2024-01-25] MEDS: Metoprolol Tartrate 25 MG TABLET PO ×2 (08:48→20:30)
[2024-01-25] MEDS: Potassium Chloride ER 20 MEQ TAB.ER.PRT 40 MEQ PO (08:48)
--- NOTE | 2024-01-25 11:16 | MHC.CM.PN ---
Patient not medically cleared for dc at this time. Awaiting final cultures. Plan for dc to [facility] tomorrow. Facility updated.
[2024-01-25 12:54] VITALS: BP 146/75; PULSE 70; O2SAT 93
--- NOTE | 2024-01-25 12:55 | P.CDIM_ITS ---
PROVIDER RESPONSE TEXT: To clarify, the appropriate diagnosis supported by the clinical indicators: Acute QUERY TEXT: PHYSICIAN'S DOCUMENTATION REQUEST Date of Query: 01/24/2024 08:57 AM EDT Patient Name: Tello Powell Admit Date: 01/23/2024 Dear Misael Grimaldo, A review of the medical record indicates additional documentation may be needed. Please review below and update the documentation accordingly. Clinical Indicators: H & P: Acute kidney injury 2/2 acute rhabdomyolysis complicated with metabolic acidosis: Clarify which of the following accurately represents the acuity of the metabolic acidosis: Possible options might include: Acute Chronic Other (explain) Clinically unable to determine (explain) Thank you, Estrellita Cardozo, CCS, CDIS Use of terms such as suspected, likely, concern for, or probable (associated with a specific diagnosi s that is being evaluated, monitored, or treated as if it exists) are acceptable and can be coded in the inpatient se tting, when documented at the time of discharge. Please use your independent medical judgment in providing your response. THIS QUERY IS PART OF THE PERMANENT MEDICAL RECORD
--- NOTE | 2024-01-25 15:02 | P.PNIM_ITS ---
Subjective Subjective Date of Service: 01/25/24 Interval History: seen and evaluated feels better overall Cr improving No cough or SOB Review of Systems Review of Systems: Yes all other systems are reviewed and are negative Physical Exam 2 Vital Signs: Vital Signs: Last Vital Signs Temp 98.1 F 01/25/24 08:00 Pulse 70 01/25/24 12:54 Resp 14 01/25/24 08:00 BP 146/75 H 01/25/24 12:54 Pulse Ox 93 01/25/24 12:54 O2 Del Method Room Air 01/25/24 08:00 Oxygen Flow Rate 2 01/23/24 11:37 BMI result Body Mass Index 26.3 Const: Other: Constitutional : Awake, interactive, not in distress Neck : Normal inspection, Supple Cardiovascular : RRR, no JVP, no lower extremity edema Respiratory : good bilateral air entry, no crackles, wheezes or rhonchi Gastrointestinal: soft, lax, Normal bowel sounds, Non tender Skin : Warm, Dry Neurological : Alert & oriented to self and place, No focal deficit Objective Data Active Medications Al Hydroxide/Mg Hydroxide (Magnesium Hydrox/Alum Hydrox 30 Ml Oral.Susp) 30 ml PO Q4H PRN PRN Reason: Heartburn Last Admin: 01/25/24 01:25 Dose: 30 ml Documented By: ARTURO Gabapentin (Gabapentin 100 Mg Capsule) 100 mg PO BID [facility] Last Admin: 01/25/24 08:48 Dose: 100 mg Documented By: PRIYA Sodium Chloride (Ns) 1,000 mls @ 75 mls/hr IVCONT .[id number] [facility] Last Admin: 01/25/24 06:04 Dose: 75 mls/hr Documented By: ARTURO Metoprolol Tartrate (Metoprolol Tartrate 25 Mg Tablet) 25 mg PO BID [facility]; Protocol Last Admin: 01/25/24 08:48 Dose: 25 mg Documented By: PRIYA Metronidazole (Metronidazole 500 Mg Tablet) 500 mg PO Q8H [facility] Ondansetron HCl (Ondansetron Hcl 4 Mg/2 Ml Vial) 4 mg IVPUSH Q8H PRN PRN Reason: Nausea and Vomiting Labs 01/25/24 05:22 01/25/24 05:22 Labs: Laboratory Results - last 24 hr 01/25/24 05:22 MCV 91.6 MCH 30.5 MCHC 33.3 RDW 12.8 Plt Count 137 L MPV 12.1 Absolute Nucleated RBC 0.000 Nucleated RBC % (auto) 0.0 Anion Gap 12 Estim Creat Clear Calc 55.8 Estimated GFR 56 Random Glucose 96 Calcium 7.9 L Total Creatine Kinase 6313 H Microbiology Microbiology Results: Microbiology 01/23/24 13:08 Blood Culture - Preliminary Blood - Venous No growth after 24 hours. 01/23/24 13:02 Blood Culture - Preliminary Blood - Venous No growth after 24 hours. Assessment and Plan (1) Abdominal aortic aneurysm: Status: Acute (2) Rhabdomyolysis: Status: Acute (3) Bloody stool: Status: Acute (4) Bandemia: Status: Acute Plan A 68 years old male with PMH of HTN, bladder CA, subdural hematoma s\p crainotomy, gait problem among others who presents to hospital after sustaining a fall at home after few days of diarrhea. Bloody diarrhea no recurrence since admission CT scan not showing any acute findings , no anemia could be hemorroidal, infx related monitor frequency and consult GI if recurrent follow H&H negative stool panel Acute kidney injury 2/2 Acute Rhabdomyolysis complicated with metabolic acidosis CK improved to 6k Cr improved to 1.2 IVF and trend CK consult Nephro if no improvement monitor I\O Leukocytosis with Bandemia GI is likely source of infection, could have viral\bacterial infx, no other criteria for sepsis Has elevated CRP as well Empirical Metronidazole for now -ve stool panel physical deconditioning PT rec STR Elevated Trop I, Transaminitis 2/2 rhabdomyolysis not due to sepsis trended down Hypermagnesemis 2/2 dehydration resolved Aortic aneurysm noticed on CT scan, seen by gen surgery: needs vascular eval out patient. DVT PPx SCD The patient needs overnight hospital stay for evaluation of above problem pending final cultures and kidney function improvement Quality Stroke Does the patient have a stroke diagnosis?: No VTE Prior VTE?: No VTE Risk Level:: Medical - moderate - high VTE Device Contraindication: N/A - Device Ordered VTE Drug Contraindication: Treatment Not Indicated
[2024-01-25 15:46] VITALS: BP 142/73; PULSE 68; RESP 18; TEMP 36.8; O2SAT 93
[2024-01-25 16:26] LABS: Leukocytes Stool Qualitative MANY: >10/OIF (NEGATIVE)
[2024-01-25] MEDS: metroNIDAZOLE 500 MG TABLET PO (16:52)
[2024-01-25 20:05] VITALS: BP 150/76; PULSE 60; RESP 18; TEMP 36.8; O2SAT 93
[2024-01-25 20:30] VITALS: BP 150/76; PULSE 65
[2024-01-25] MEDS: Melatonin 3 MG TABLET 6 MG PO (22:09)
[2024-01-26] MEDS: metroNIDAZOLE 500 MG TABLET PO ×2 (01:04→09:44)
--- NOTE | 2024-01-26 02:56 | PC.NURSE ---
Pt requested for sleep med, Dr. Black was notified, Melatonin 6 mg po given, slept at intervals.
[2024-01-26 04:00] VITALS: BP 130/77; PULSE 65; RESP 14; TEMP 36.2; O2SAT 96
[2024-01-26 07:20] VITALS: BP 147/79; PULSE 56; RESP 16; TEMP 36.3; O2SAT 95
[2024-01-26 07:44] LABS: Anion Gap 10 (12-20); Blood Urea Nitrogen 34 mg/dL (9-16); Calcium 8.4 mg/dL (8.4-10.2); Carbon Dioxide 26 mmol/L (22-29); Chloride 109 mmol/L (96-108); Creatinine Clr Calc Pharmacy 70.2; Estimated Glomerular Filt Rate > 60; Glucose Random 108 mg/dL (60-115); Potassium 3.5 mmol/L (3.3-5.1); Sodium 141 mmol/L (135-145)
--- NOTE | 2024-01-26 09:17 | MHC.CM.PN ---
Per MD patient is medically cleared for dc to [facility]. [facility] is first choice and has accepted patient. BLS transport scheduled for 12pm. , RN, patient and facility aware.
[2024-01-26 09:44] VITALS: PULSE 72
[2024-01-26] MEDS: Metoprolol Tartrate 25 MG TABLET PO (09:44)
[2024-01-26] MEDS: Gabapentin 100 MG CAPSULE PO (09:45)
[2024-01-26] MEDS: Sertraline HCL 50 MG TABLET PO (10:38)
[2024-01-26] MEDS: lisinopriL 5 MG TABLET PO (10:38)
--- NOTE | 2024-01-26 11:31 | PM.DS ---
DS: Providers Provider Date of Service: 01/26/24 Date of admission: 01/23/24 17:31 Primary care physician: Abel Beltran MD Consults: 01/23/24 17:35 Consult to Vascular Surgery Routine Consulting Provider: 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 He was very weak to participate with history but reported feeling sick to his stomach for the last 4 days or so with ongoing diarrhea every 2-3 hours which was soft and brown in color but then became bloody. He was feeling dizzy and nausous and was not able to tolerate diet. Fell few times and had to call EMS as he could not get up after the last fall. In ED found to have RU with elevated CK and Elevated WBCs w bandemia. Elevated Troponin that trended down with repeat. Admitted for further evaluation and treatment. Hospital course - Bloody diarrhea along with Leukocytosis with Bandemia no recurrence during admission. CT scan not showing any acute findings , no anemia. could be hemorroidal or GE infection related. negative stool panel. Had elevated CRP along with Bandemia. No clear source of infection identified. GI remained likely source of infection, could have viral\bacterial infx, no other criteria for sepsis. Empirically covered with Flagyl. blood cultures remained negative. to finish 1 week of Flagyl. - Acute kidney injury 2/2 Acute Rhabdomyolysis complicated with metabolic acidosis Treated with IV fluids and avoidance of nephrotoxic with Creatinine improving back to normal Cr of 1. CK trended down as well. Advised to drink plenty of fluids. - Physical deconditioning, PT recommended short term rehab - Elevated Trop I, Transaminitis 2/2 rhabdomyolysis not due to sepsis , trended down with hydration. - Hypermagnesemis 2/2 dehydration, resolved with IV fluids usage Discharge plan Finish 4 more days of Flagyl Increase physical activity as tolerated Drink plenty of fluids and keep yourself well hydrated Time Attestation Discharge Coordination Time (in mins): 37 Quality: Safe Use of Opioids Does Pt have an Active Cancer Diagnosis on the Problem List?: No Quality: Stroke Does the patient have a stroke diagnosis?: No Physical Exam Vital Signs: Vital Signs: Last Vital Signs Temp 97.3 F 01/26/24 07:20 Pulse 72 01/26/24 09:44 Resp 16 01/26/24 07:20 BP 147/79 H 01/26/24 07:20 Pulse Ox 95 01/26/24 07:20 O2 Del Method Room Air 01/26/24 07:20 Oxygen Flow Rate 2 01/23/24 11:37 BMI result Body Mass Index 26.3 Const: Other: Constitutional : Awake, interactive, not in distress Neck : Normal inspection, Supple Cardiovascular : RRR, no JVP, no lower extremity edema Respiratory : good bilateral air entry, no crackles, wheezes or rhonchi Gastrointestinal: soft, lax, Normal bowel sounds, Non tender Skin : Warm, Dry Neurological : Alert & oriented to self and place, No focal deficit DS: Data Data Completed and Pending Labs on day of discharge: Laboratory Results - last 24 hr 01/25/24 01/26/24 14:15 06:00 Sodium 141 Potassium 3.5 Chloride 109 H Carbon Dioxide 26 Anion Gap 10 L BUN 34 H Creatinine 1.01 Estim Creat Clear Calc 70.2 Estimated GFR > 60 Random Glucose 108 Calcium 8.4 D Stool Leukocytes, Qual MANY: >10/OIF Preliminary micro results at discharge 01/23/24 13:08 Blood Culture - Preliminary Blood - Venous No growth after 48 hours. 01/23/24 13:02 Blood Culture - Preliminary Blood - Venous No growth after [address] scan - abdomen: Radiologist's impression: ITS Impressions Chest X-Ray 01/23/24 13:30 IMPRESSION: Query early left basilar infiltrate for which follow-up PA lateral would be advised. Cervical Spine CT 01/23/24 13:39 IMPRESSION: * No intracranial hemorrhage or other acute intracranial pathology compared to 07/27/2023. * No fracture or malalignment in the degenerated cervical spine. * There is a healing nondisplaced fracture of the medial left first rib. Head CT 01/23/24 13:39 IMPRESSION: * No intracranial hemorrhage or other acute intracranial pathology compared to 07/27/2023. * No fracture or malalignment in the degenerated cervical spine. * There is a healing nondisplaced fracture of the medial left first rib. Abdomen/Pelvis CT 01/23/24 16:21 IMPRESSION: * No evidence of urolithiasis or urinary tract obstruction. * Cholelithiasis without cholecystitis. * Multiple diverticula of the colon without evidence of diverticulitis. 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 Discharge Plan Discharge Anticipated Discharge Date/Time: 01/26/24 11:28 Patient Disposition: Xfer [facility] Discharge Diagnosis: Rhabdomyolysis Acute kidney injury bloody stool Referrals: [facility] [Outside] - 1 Day (short term rehab) Abel Beltran MD [Primary Care Provider] - 1 Week Discharge Medications: New metronidazole 500 mg Tablet 500 mg PO Q8H Qty: 12 0RF Continued polyethylene glycol 3350 [Miralax] 17 gram/dose Powder 17 g PO DAILY PRN (Reason: Constipation) sertraline 50 mg tablet 50 mg PO DAILY ascorbic acid (vitamin C) [Vitamin C] 500 mg tablet 500 mg PO DAILY lovastatin 40 mg tablet 40 mg PO DAILY metoprolol tartrate 50 mg tablet 25 mg PO BID lisinopril 5 mg tablet 5 mg PO DAILY gabapentin 300 mg capsule 300 mg PO BID trazodone 50 mg tablet 50 mg PO BEDTIME aspirin 81 mg tablet,delayed release (DR/EC) 81 mg PO DAILY cholecalciferol (vitamin D3) [Vitamin D3] 50 mcg (2,000 unit) capsule 50 mcg PO DAILY Discharge Orders: Discharge Order (Routine); Ordered 01/26/24 Ordered By: Misael Grimaldo Diet: Advance to usual diet Activity on Discharge: As tolerated Stand Alone Forms: Patient Portal Discharge page Print Language: Chinese Care Plan Goals: Finish 4 more days of Flagyl Increase physical activity as tolerated Drink plenty of fluids and keep yourself well hydrated Health Concerns: Read below Plan of Treatment: Read below Assessment: Read below
== END 2024-01-26 12:09 | disposition skilled nursing facility (03) | DRG 683 ==
LOC: HO.ED 16:06 → HO.EDOVER 17:45 → HO.S3 19:41
PROVIDERS: Emergency Medicine; Admitting Provider Student in an Organized Health Care Education/Training Program; Emergency Provider Internal Medicine; PCP Internal Medicine; Visit Provider Student in an Organized Health Care Education/Training Program
DX: N17.9 Acute kidney failure, unspecified (principal); A09 Infectious gastroenteritis and colitis, unspecified; M62.82 Rhabdomyolysis; K92.1 Melena; E87.21 Acute metabolic acidosis; E86.0 Dehydration; K64.9 Unspecified hemorrhoids; I71.43 Infrarenal abdominal aortic aneurysm, without rupture; E83.41 Hypermagnesemia; Z20.822 Contact with and (suspected) exposure to COVID-19; Z98.2 Presence of cerebrospinal fluid drainage device; Z79.82 Long term (current) use of aspirin; Z79.899 Other long term (current) drug therapy
CPT/HCPCS: 0241U; 36415; 70450; 71045; 72125; 74176; 80048; 80053; 80076; 80307; 81001; 82272; 82550; 82947; 83605; 83690; 83735; 84145; 84484; 85007; 85025; 85027; 85610; 86140; 87040; 87493; 87507; 89055; 93005; 97116; 97162; 99285; C1758; J0456; J0696; J1836

== ENCOUNTER → 2024-01-23 12:37 | Outpatient (BNV) | payer MEDICARE, MEDICAID, SELFPAY | PROVIDERS: Admitting Provider Student in an Organized Health Care Education/Training Program; Emergency Provider Internal Medicine; PCP Internal Medicine; Visit Provider Internal Medicine Cardiovascular Disease | DX: R94.31 Abnormal electrocardiogram [ECG] [EKG] (principal) | CPT/HCPCS: 93010 ==

== ENCOUNTER → 2024-01-23 17:31 | Outpatient (BNV) | payer MEDICARE, MEDICAID, SELFPAY | PROVIDERS: Admitting Provider Student in an Organized Health Care Education/Training Program; Emergency Provider Internal Medicine; PCP Internal Medicine; Visit Provider Student in an Organized Health Care Education/Training Program | DX: I71.43 Infrarenal abdominal aortic aneurysm, without rupture (principal); M62.82 Rhabdomyolysis; K92.1 Melena; D72.825 Bandemia; N17.9 Acute kidney failure, unspecified; R79.89 Other specified abnormal findings of blood chemistry; D72.829 Elevated white blood cell count, unspecified | CPT/HCPCS: 99223; 99232; 99239 ==

== ENCOUNTER → 2024-01-23 17:31 | Outpatient (BNV) | payer MEDICARE, MEDICAID, SELFPAY | PROVIDERS: Admitting Provider Student in an Organized Health Care Education/Training Program; Emergency Provider Internal Medicine; PCP Internal Medicine; Visit Provider Surgery | DX: I71.43 Infrarenal abdominal aortic aneurysm, without rupture (principal) | CPT/HCPCS: 99222 ==

== ENCOUNTER 2024-04-13 12:22 | Emergency (ER) | payer MEDICARE, MEDICAID, SELFPAY ==
--- NOTE | ~2024-04-13 | XR_ITS ---
EXAMINATION: XR RIBS, RIGHT CLINICAL INFORMATION: Status post fall with pain in the scapula and the right lateral chest COMPARISON: Chest radiograph from January 23, 2024 TECHNIQUE: AP chest and 4 views of right rib cage FINDINGS: There is a [employer]CH[employer]ICIAN shunt on the right Lungs are clear. No consolidation, pneumothorax, or pleural effusion. The cardiomediastinal silhouette and pulmonary vasculature are normal. Osseous structures are unremarkable. Ribs are intact. No fractures are identified. There is healed fracture of right shoulder XR/XR ribs RT min 3V w CXR1V IMPRESSION: No fracture seen Electronically signed by: Luh Enrique MD 04/13/2024 01:27 PM EDT
--- NOTE | 2024-04-13 12:24 | ED_ITS ---
HPI - Extremity Injury (Upper) General Chief Complaint: Fall Stated Complaint: fall-r arm inj Time Seen by Provider: 04/13/24 13:44 Source: patient Mode of arrival: ambulatory Limitations: no limitations History of Present Illness ED Provider: gomez HPI narrative: Patient is a 68-year-old male with history of HTN, HLD, bladder CA presenting to the ED with complaint of right posterior rib/scapula pain after a mechanical fall one week ago. He denies head strike or loss of consciousness at the time of fall. Has been using Tylenol and ibuprofen, recently added aspercream which he states is effective but not for extended period of time. Denies any chest pain, shortness of breath or difficulty breathing. Denies any hematuria. States that his pain feels better today than it has over the past week. Denies any difficulty ambulating with his walker. Onset (ago): week(s) Other injuries: none Place: home Relieving factors: medication Exacerbating factors: movement of extremity Context: fall Associated symptoms: denies other symptoms Treatments prior to arrival: NSAIDS and other Related Data Home Medications ?Medication ?Instructions ?Recorded ?Confirmed ascorbic acid (vitamin C) 500 mg 500 mg PO DAILY 11/21/22 01/23/24 tablet (Vitamin C) aspirin 81 mg tablet,delayed 81 mg PO DAILY 11/21/22 01/23/24 release cholecalciferol (vitamin D3) 50 50 mcg PO DAILY 11/21/22 01/23/24 mcg (2,000 unit) capsule (Vitamin D3) gabapentin 300 mg capsule 300 mg PO BID 11/21/22 01/23/24 lisinopril 5 mg tablet 5 mg PO DAILY 11/21/22 01/23/24 lovastatin 40 mg tablet 40 mg PO DAILY 11/21/22 01/23/24 metoprolol tartrate 50 mg tablet 25 mg PO BID 11/21/22 01/23/24 sertraline 50 mg tablet 50 mg PO DAILY 11/21/22 01/23/24 trazodone 50 mg tablet 50 mg PO BEDTIME 11/21/22 01/23/24 polyethylene glycol 3350 17 17 g PO DAILY PRN Constipation 01/23/24 01/23/24 gram/dose oral powder (Miralax) Previous Rx's ?Medication ?Instructions ?Recorded metronidazole 500 mg tablet 500 mg PO Q8H #12 tabs 01/26/24 diclofenac sodium 1 % topical gel 2 g topical QID #100 grams 04/13/24 Allergies Allergy/AdvReac Type Severity Reaction Status Date / Time No Known Allergies Allergy Mild NONE Verified 04/13/24 12:29 Review of Systems Review of Systems: As per hPI. Yes all other systems are reviewed and are negative Constitutional: Constitutional: Reports as per HPI [facility] Past Medical History Medical History Falls Gait disorder Subdural hematoma Bladder cancer Hyperlipidemia Depressed High cholesterol High blood pressure Surgical History S/[employer] shunt H/O brain surgery Family History Family History Mother Cancer Sister Cancer Social History Social History Household Members: None Housing: Assisted Living Facility Do you presently have visiting nurse or other home services: No Alcohol intake: former Patient Tobacco Use Status: Never used Tobacco Advance Directives: Yes Advance Directives on File: Yes Advance Directives Date on File: 01/24/24 Do you have a plan to hurt others: No Plan service: No Current occupational status: 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 Blood pressure normal. Heart rate normal. Respiratory rate normal. Temperature normal. Oxygen saturation normal. Const: General: cooperative, healthy appearing and no acute distress Orientation/consciousness: oriented to person, oriented to place, oriented to time and patient oriented x3 Limitations: no limitations HEENT: Head: Yes normocephalic and Yes atraumatic Ears: external ears normal General nose exam: Normal external nose present Face and sinus: Yes face symmetric Mouth: oropharynx normal and moist mucous membranes Throat: Yes uvula midline Eyes: Pupils: Equal, round and reactive pupils present Neck: Neck: Yes normal visual inspection and Yes supple Chest: Chest palpation & inspection: tenderness rib right mid-scapular line involving the 4th rib, involving the 5th rib and involving the 6th rib Resp: Effort & Inspection: normal respiratory effort and able to speak in complete sentences Auscultation: clear to auscultation bilaterally Cardio: Rate: regular rate Rhythm: regular rhythm Heart sounds: S1 normal heart sound present and S2 normal heart sound present GI: Palpation (GI): Soft to palpation and nontender Auscultation: normoactive bowel sounds : General: Yes no CVA tenderness Back/Spine/Pelvis: Back: no CVA tenderness Cervical Spine: normal cervical lordosis, cervical ROM normal, No Cervical spine tenderness and No step off deformity Thoracic/Lumbar Spine: thoracic and lumbar spine normal to inspection, No thoracic spinal tenderness and No lumbar spinal tenderness Skin: General skin exam: elasticity normal and turgor normal Neuro: General: oriented to person, oriented to place, oriented to time, patient oriented x3, moves all extremities, no focal motor deficits and CN's II- XI intact bilaterally Cranial nerves: Yes Equal, round and reactive pupils present Cognition (Neuro): normal cognition Extrem: General: Yes full ROM, Yes no pedal edema and Yes no calf tenderness Right upper extremity: normal to inspection, full ROM and shoulder/upper arm Details: normal to inspection, tenderness Location: of the scapula and normal ROM; no abrasions, no ecchymosis, no crepitus and no deformity Psych: Mental Status: mental status grossly normal Affect: normal affect Thought process: Normal thought process present Course Course Course Narrative: This is an RME performed by Dhara Fay CNP: Additional HPI, ROS, PE not included below will be deferred to primary provider. Patient is a 68-year-old male who presents emergency department for evaluation. He reports a mechanical trip and fall 1 week ago, states that he landed onto his right arm. He is experiencing pain to the right posterior shoulder/scapula and along the right lateral chest wall. No associated chest pain or shortness of breath. Has been using OTC NSAIDs and Aspercreme with only some improvement Plan: XR Medical Decision Making Medical Decision Making MDM Narrative: Patient is a 68-year-old male with history of HTN, HLD, bladder CA presenting to the ED with complaint of right posterior rib/scapula pain after a mechanical fall one week ago. On exam patient is awake, A+Ox3, VS WNL, afebrile, normal neurological exam without focal deficits, physical exam findings as above. Given reported symptoms and physical exam findings, initial differential includes rib/scapula contusion versus fracture. X-ray notable for no acute fractures. My interpretation is in agreement with the radiologist's interpretation. Patient updated on results and all questions answered. States he is comfortable continuing with Tylenol and ibuprofen. Will send prescription for diclofenac gel. Advised patient to ice the area intermittently as well. Follow-up with PCP. Return precautions discussed at bedside. Patient verbalized understanding of and agreement plan. Differential Diagnosis Differential Diagnoses: The differential diagnosis associated with the presentation includes As per MDM. Independent Interpretation I performed an independent interpretation of an: Plain X-Ray Interpretation: No acute fracture right scapula/ribs Radiology Impression Discussion of test interpretation with radiology: I have reviewed the radiologist's reading. Radiologist Impression: XR/XR ribs RT min 3V w CXR1V IMPRESSION: No fracture seen External Record Review External record reviewed: Inpatient record, Office record and Outpatient record Prescription Management I considered prescription management with: Pain Medication Discharge Plan Discharge Clinical Impression: Contusion of rib on right side Patient Disposition: Home, Self-Care Instructions: Contusion in Adults (ED), Rib Contusion (ED) Additional Instructions: You were evaluated in the emergency department today for right rib/scapula pain after a fall. Your x-rays did not show evidence of any fractures. We recommend that you continue to use Tylenol and ibuprofen as needed. Being prescribed diclofenac gel which you can apply topically up to 4 times daily to the affected area. We also recommend that you apply ice to the area for 10-15 minutes at a time several times daily. Follow-up with your primary care provider. Return to the emergency department if you develop increasing pain, shortness of breath or difficulty breathing, blood in your urine or any other concerning symptoms. Prescriptions: New diclofenac sodium 1 % gel 2 g topical QID Qty: 100 0RF Rx Instructions: apply to painful area of right ribs No Action polyethylene glycol 3350 [Miralax] 17 gram/dose Powder 17 g PO DAILY PRN (Reason: Constipation) metronidazole 500 mg Tablet 500 mg PO Q8H Qty: 12 0RF sertraline 50 mg tablet 50 mg PO DAILY ascorbic acid (vitamin C) [Vitamin C] 500 mg tablet 500 mg PO DAILY lovastatin 40 mg tablet 40 mg PO DAILY metoprolol tartrate 50 mg tablet 25 mg PO BID lisinopril 5 mg tablet 5 mg PO DAILY gabapentin 300 mg capsule 300 mg PO BID trazodone 50 mg tablet 50 mg PO BEDTIME aspirin 81 mg tablet,delayed release (DR/EC) 81 mg PO DAILY cholecalciferol (vitamin D3) [Vitamin D3] 50 mcg (2,000 unit) capsule 50 mcg PO DAILY Print Language: Jordanian
[2024-04-13 12:25] VITALS: BP 140/90; PULSE 93; RESP 18; TEMP 36.8; O2SAT 94; BMI 30.1
[2024-04-13 14:16] VITALS: BP 135/74; PULSE 86; RESP 16; TEMP 36.6; O2SAT 95
[2024-04-13 14:38] VITALS: BP 135/74; PULSE 86; RESP 16; TEMP 36.6; O2SAT 95
== END 2024-04-13 14:42 | disposition home or self-care (01) ==
PROVIDERS: Emergency Provider Emergency Medicine Emergency Medical Services; PCP Internal Medicine
DX: S20.211A Contusion of right front wall of thorax, initial encounter (principal); R07.81 Pleurodynia; W19.XXXA Unspecified fall, initial encounter; Y93.89 Activity, other specified; Y92.89 Other specified places as the place of occurrence of the external cause; Y99.8 Other external cause status
CPT/HCPCS: 71101; 99283

== ENCOUNTER 2024-05-05 10:32 | Outpatient (REF) | payer MEDICARE, MEDICAID, SELFPAY ==
[2024-05-05 13:23] LABS: Appearance Urine Clear; Color Urine Yellow; Glucose Urine UA Negative (Negative); Leukocyte Esterase Urine Negative (Negative); MANUAL DIFF FLAG NO; Nitrite Urine Negative (Negative); PH 5.5 (5.0-9.0); Specific Gravity - Urine 1.025 (1.005-1.025); Urine Blood Negative (Negative); Urine Ketones Negative (Negative); Urine Protein Negative (Neg-Trace)
[2024-05-05 13:32] LABS: Basophils Percent Auto 0.5 % (0-2); Eosinophils Absolute Auto 0.1 X10*3/uL (0.0-0.4); Eosinophils Percent Auto 0.8 % (0-4); Hematocrit 44.4 % (42.0-52.0); Hemoglobin 14.5 g/dl (14.0-18.0); Imm Gran Abs Auto 0.05 X10*3/uL (0.00-0.03); Imm Gran Pct Auto 0.6 % (0.0-0.4); Lymphocytes Absolute Auto 1.2 X10*3/uL (1.2-4.9); Lymphocytes Percent Auto 15.7 % (20-40); Mean Corpuscular HGB Conc 32.7 g/dl (31.0-36.0); Mean Corpuscular Hemoglobin 30.3 pg (27.0-33.0); Mean Corpuscular Volume 92.9 fL (80.0-98.0); Mean Platelet Volume 11.2 fL (9.4-12.4); Monocytes Absolute Auto 0.5 X10*3/uL (0.1-1.2); Monocytes Percent Auto 6.2 % (2-11); Neutrophils Absolute Auto 5.9 x10*3/uL (2.0-8.3); Neutrophils Percent Auto 76.2 % (45-73); Platelet Count 236 X10*3/uL (160-400); Red Blood Count 4.78 X10*6/uL (4.60-5.80); White Blood Count 7.7 X10*3/uL (4.8-10.8)
[2024-05-05 14:30] LABS: Alanine Aminotransferase 22 U/L (0-40); Albumin Level 4.4 g/dL (3.5-5.0); Alkaline Phosphatase 97 U/L (39-117); Anion Gap 11 (12-20); Aspartate Amino Transferase 28 U/L (5-37); Bilirubin Total 0.7 mg/dL (0.0-1.0); Blood Urea Nitrogen 27 mg/dL (9-16); Calcium 9.2 mg/dL (8.4-10.2); Carbon Dioxide 26 mmol/L (22-29); Chloride 109 mmol/L (96-108); Cholesterol 148 mg/dL (<200); Estimated Glomerular Filt Rate > 60; Glucose Fasting 111 mg/dL (60-99); HDL Cholesterol 31 mg/dL (>40); LDL Cholesterol Calculated 95 mg/dL (<100); Potassium 4.4 mmol/L (3.3-5.1); Sodium 142 mmol/L (135-145); Total Protein 7.3 g/dL (6.5-8.0); Triglycerides 112 mg/dL (<150)
[2024-05-05 14:40] LABS: Prostate Specific Antigen Scr 0.71 ng/mL (<0.05-4.0)
[2024-05-05 14:47] LABS: Vitamin D 25-OH Total 45.2 ng/mL (>30)
== END 2024-05-05 10:33 | disposition home or self-care (01) ==
LOC: HO.10HDL 10:32
PROVIDERS: Visit Provider Internal Medicine
DX: I10 Essential (primary) hypertension (principal); E78.00 Pure hypercholesterolemia, unspecified; E55.9 Vitamin D deficiency, unspecified; Z12.5 Encounter for screening for malignant neoplasm of prostate; K21.9 Gastro-esophageal reflux disease without esophagitis
CPT/HCPCS: 36415; 80053; 80061; 81003; 82306; 84153; 85025

== ENCOUNTER 2024-05-27 14:03 | Outpatient (AMB) | payer MEDICARE, MEDICAID, SELFPAY ==
[2024-05-27 14:21] VITALS: BP 138/88; BMI 30.1
--- NOTE | 2024-05-27 14:21 | A.OFFVIS_ITS ---
Vital Signs 05/27/24 14:21 Height 5 ft 10 in Weight 210 lb BMI 30.1 BP 138/88 Blood Pressure Location Lt brachial Position Sitting Intake Visit Reasons: AAA, ED referral Intake Note: Tello is a 69 year old male who presents to the office today for an ED referral for AAA. Pt states he is feeling well and denies any abdominal pain, nausea, back pain. Allergies No Known Allergies Allergy (Mild, Verified 05/27/24 14:21) NONE HPI HPI AAA, ED referral: Details: Very pleasant 69-year-old gentleman presents for evaluation of abdominal aortic aneurysm. This was originally worked up back in January where he was seen in the emergency room for saccular aneurysm. He has got a past medical history of hypertension bladder CA subdural hematoma with craniotomy and gait problem. At the time of his admission he had bloody diarrhea along with acute kidney injury he reports that he is doing significantly better. It appears that his acute kidney injury has resolved. And he is now for evaluation regarding this aortic aneurysm. Of note he smoked in his younger years and he quit nearly 35 years ago. He quit in 1988. He is a nondiabetic. Now presents for vascular evaluation. 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 H/O brain surgery Family History Mother Cancer Sister Cancer Social History Household Members: None Housing: Assisted Living Facility Do you presently have visiting nurse or other home services: No Alcohol intake: former Patient Tobacco Use Status: Never used Tobacco Advance Directives Date on File: 01/24/24 service: No Current occupational status: 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 Review of Systems Const All systems reviewed & are unremarkable except as noted in HPI and below Reports no additional complaints ENT Reports Normal hearing present Card Denies chest pain, Denies chest pain at rest, Denies chest pain with activity and Denies pedal edema Resp Denies cough GI Denies abdominal pain Musc Denies abnormal gait, Denies muscle cramps and Denies radiating pain into limb Skin/Breast Denies skin ulcer and Denies wounds Neuro Reports Normal hearing present and Denies abnormal gait Psych Reports no additional complaints Physical Exam Vital Signs: Last Vital Signs BP 138/88 05/27/24 14:21 BMI result Body Mass Index 30.1 Const General: cooperative, healthy appearing and comfortable Orientation/consciousness: oriented to person, oriented to place and oriented to time HEENT Head: Yes normal to inspection Neck Neck: Yes normal visual inspection Carotids: no bruits Chest Chest palpation & inspection: normal inspection of the chest Resp Effort & Inspection: normal respiratory effort and able to speak in complete sentences Auscultation: clear to auscultation bilaterally, no crackles, no rales, no rhonchi and no wheezes Cardio Rate: regular rate Rhythm: regular rhythm Heart sounds: S1 normal heart sound present and S2 normal heart sound present Bruits: no carotid bruits Peripheral pulses: Peripheral pulses 2+ throughout GI Inspection: Yes normal to inspection Skin Wounds: no wounds Hair: normal Neuro General: oriented to person, oriented to place and oriented to time Cranial nerves: Yes CN's II-XII intact bilaterally and Yes Normal hearing present Cognition (Neuro): normal cognition Motor exam (neuro): 5/5 motor strength present throughout Extrem Other: venous exam: No significant superficial varicosities or spider telangiectasias, minimal edema General: No clubbing, No cyanosis and No edema Psych Appearance: grossly normal Mental Status: mental status grossly normal Speech and movement: Normal speech and movement present Results Reviewed Results Reviewed: Noncontrast CT 01/23/2024 written report and images were reviewed. It demonstrates a 3.5 cm aneurysm with saccular outpouchings. Assessment & Plan Assessment & Plan (1) Abdominal aortic aneurysm: Code(s): I71.40 - Abdominal aortic aneurysm, without rupture, unspecified Category: Medical Qualifiers: Abdominal aorta location: infrarenal aorta Presence of rupture: without rupture Qualified Code(s): I71.43 - Infrarenal abdominal aortic aneurysm, without rupture Plan: In short patient has radiologic evidence of a AAA on noncontrast CT. We have discussed the pathophysiology of aortic aneurysms and the risk of ruptures. We have discussed rupture risk based on size. In addition we have discussed conservative measures and risk factor modification for prevention of increase in size of the aneurysm. It appears that his kidney function has resolved. I have taken the liberty of ordering a CT angiogram. He will follow up with us after CT scan.. Thank you for allowing us to participate in the care of this patient Orders: Orders CT angio abdomen pelvis 2 Days I71.43 - Infrarenal abdominal aortic aneurysm, without rupture Coding Level of Care Code New Pt Level 4 (21336) Complex EM visit Add On G2211 Diagnoses Infrarenal abdominal aortic aneurysm (AAA) without rupture I71.43 Abdominal aorta location: infrarenal aorta Presence of rupture: without rupture
== END 2024-05-27 14:59 | disposition home or self-care (01) ==
PROVIDERS: PCP Internal Medicine; Visit Provider Surgery Vascular Surgery
DX: I71.43 Infrarenal abdominal aortic aneurysm, without rupture (principal)
CPT/HCPCS: 99204; G2211

== ENCOUNTER → 2024-05-27 14:03 | Outpatient (BNVA) | payer MEDICARE, MEDICAID, SELFPAY | PROVIDERS: PCP Internal Medicine; Visit Provider Surgery Vascular Surgery | DX: I71.43 Infrarenal abdominal aortic aneurysm, without rupture (principal) | CPT/HCPCS: 99202 ==

== ENCOUNTER 2024-06-02 13:53 | Outpatient (REF) | payer MEDICARE, MEDICAID, SELFPAY ==
--- NOTE | ~2024-06-02 | CT_ITS ---
STUDY PERFORMED: CTA ABDOMEN AND PELVIS WITHOUT AND WITH CONTRAST HISTORY: Abdominal aortic aneurysm without rupture DESCRIPTION: Routine abdomen and pelvis CTA protocol with contrast was performed. 80 mL of Omnipaque 350 was administered. 3D POSTPROCESSING: Multiple 3-D angiographic images were processed from the initial data set by the imaging manager at the modality workstation under concurrent physician supervision. DOSE LOWERING TECHNIQUES: This CT examination was performed using dose optimization techniques as appropriate, variously including the following: - Automated exposure control - Adjustment of mA and/or kV according to patient size (this includes techniques or standardized protocols for targeted exams where dose is matched to indication/reason for exam; i.e. extremities or head) - Use of iterative reconstruction technique DLP: 288 mGycm. COMPARISON: Noncontrast CT from 01/23/2024 FINDINGS: VASCULAR: ABDOMINAL AORTA: There is a focal eccentric saccular aneurysm off the right lateral aspect of the infrarenal aorta. The saccular portion measures 1.5 cm in diameter. Total diameter of the aorta at this level measures 3.3 cm. Measurements are stable. No evidence of leak or rupture. Scattered atherosclerotic plaque is seen within the aorta.. RIGHT LOWER EXTREMITY: Common iliac, external iliac, internal iliac and visualized femoral arteries are normal in caliber and patent with scattered calcified plaque. LEFT LOWER EXTREMITY: Common iliac, external iliac, internal iliac and visualized femoral arteries are normal in caliber and patent with scattered calcified plaque. 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 Celiac artery is otherwise patent. The splenic artery, left gastric artery and hepatic artery are patent. Superior mesenteric artery and inferior mesenteric arteries are patent.. RENAL ARTERIES: Patent and normal in caliber. NONVASCULAR: Lung Bases: The visualized lung bases are unremarkable. Liver, Gallbladder and Biliary Tree: The liver is normal in size, shape, and attenuation. Multiple simple cysts are seen within the liver. No biliary ductal dilatation is present. The gallbladder is unremarkable with no evidence of radiopaque gallstones, gallbladder wall thickening, or obvious pericholecystic inflammatory changes. Pancreas: Unremarkable. Spleen: Unremarkable. Adrenal Glands: There is a stable adrenal gland nodule measuring 2.9 x 2.3 cm , stable, previously consistent with lipid rich adrenal gland adenoma Kidneys and Ureters: Focal cortical scarring in the lower pole of the right kidney. Right kidney otherwise appears unremarkable without hydronephrosis or calcified stone. There are areas of focal cortical scarring in the lower pole the left kidney. Left kidney is otherwise normal without hydronephrosis or calcified stone Bladder: Unremarkable. Gastrointestinal Tract: The small bowel are unremarkable. The appendix is unremarkable. Diverticula seen within the sigmoid colon without evidence of acute diverticulitis Abdominal Wall: Fat-containing right inguinal hernia Lymph Nodes: Normal. Pelvic Viscera: Unremarkable. Osseous Structures: Stable chronic compression deformity of T12. Diffuse degenerative disc disease, most severe at L5/S1 which is stable. CT/CT angio abdomen pelvis IMPRESSION: 1. Stable saccular aneurysm off the infrarenal aorta as described above. No evidence of leak or rupture. 2. 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 3. Stable right adrenal gland adenoma. 4. Stable chronic compression deformity of T12. Electronically signed by: Ozzie Gordon MD 06/02/2024 08:49 PM EST
[2024-06-02] MEDS: iohexoL 350 MG/ML 100 ML INFUS..BTL IV (14:20)
== END 2024-06-02 13:54 | disposition home or self-care (01) ==
LOC: HO.CT 13:53
PROVIDERS: PCP Internal Medicine; Visit Provider Surgery Vascular Surgery
DX: I71.43 Infrarenal abdominal aortic aneurysm, without rupture (principal)
CPT/HCPCS: 74174; Q9967

== ENCOUNTER 2024-06-17 13:13 | Outpatient (AMB) | payer MEDICARE, MEDICAID, SELFPAY ==
[2024-06-17 13:26] VITALS: BMI 30.1
--- NOTE | 2024-06-17 13:26 | A.OFFVIS_ITS ---
Vital Signs 06/17/24 13:26 Height 5 ft 10 in Weight 210 lb BMI 30.1 Intake Visit Reasons: follow up s/p CTA ABD/Pelvis 06/02/24 Intake Note: follow up CTA Abd/pelvis AAA 06/02/24 Accompanied by: Self / Same As Patient Allergies No Known Allergies Allergy (Mild, Verified 06/17/24 13:32) NONE HPI HPI follow up s/p CTA ABD/Pelvis 06/02/24: Details: Very pleasant 69-year-old gentleman presents for follow-up regarding his aortic aneurysm. He was originally seen in the emergency room for our kidney issues. He subsequently underwent CT scan and was discovered at that time. This time we have a more dedicated CT angio of the abdomen and pelvis and he now presents for follow-up. 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 H/O brain surgery Family History Mother Cancer Sister Cancer Social History Household Members: None Housing: Assisted Living Facility Do you presently have visiting nurse or other home services: No Alcohol intake: former Patient Tobacco Use Status: Never used Tobacco Advance Directives Date on File: 01/24/24 service: No Current occupational status: 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 Review of Systems Const All systems reviewed & are unremarkable except as noted in HPI and below Reports no additional complaints ENT Reports Normal hearing present Card Denies chest pain, Denies chest pain at rest, Denies chest pain with activity and Denies pedal edema Resp Denies cough GI Denies abdominal pain Musc Denies abnormal gait, Denies muscle cramps and Denies radiating pain into limb Skin/Breast Denies skin ulcer and Denies wounds Neuro Reports Normal hearing present and Denies abnormal gait Psych Reports no additional complaints Physical Exam Vital Signs: BMI result Body Mass Index 30.1 Const General: cooperative, healthy appearing and comfortable Orientation/consciousness: oriented to person, oriented to place and oriented to time HEENT Head: Yes normal to inspection Neck Neck: Yes normal visual inspection Carotids: no bruits Chest Chest palpation & inspection: normal inspection of the chest Resp Effort & Inspection: normal respiratory effort and able to speak in complete sentences Auscultation: clear to auscultation bilaterally, no crackles, no rales, no rhonchi and no wheezes Cardio Rate: regular rate Rhythm: regular rhythm Heart sounds: S1 normal heart sound present and S2 normal heart sound present Bruits: no carotid bruits Peripheral pulses: Peripheral pulses 2+ throughout GI Inspection: Yes normal to inspection Skin Wounds: no wounds Hair: normal Neuro General: oriented to person, oriented to place and oriented to time Cranial nerves: Yes CN's II-XII intact bilaterally and Yes Normal hearing present Cognition (Neuro): normal cognition Motor exam (neuro): 5/5 motor strength present throughout Extrem Other: venous exam: No significant superficial varicosities or spider telangiecta ngoc, minimal edema General: No clubbing, No cyanosis and No edema Psych Appearance: grossly normal Mental Status: mental status grossly normal Speech and movement: Normal speech and movement present Results Reviewed Results Reviewed: CT angiogram demonstrates a proximally a 3.5 cm saccular aneurysm in mid aorta. Assessment & Plan Assessment & Plan (1) Abdominal aortic aneurysm: Code(s): I71.40 - Abdominal aortic aneurysm, without rupture, unspecified Category: Medical Qualifiers: Abdominal aorta location: infrarenal aorta Presence of rupture: without rupture Qualified Code(s): I71.43 - Infrarenal abdominal aortic aneurysm, without rupture Plan: In short patient has a proximally at 3.3-3.5 cm aortic aneurysm. This is saccular in nature. The patient will require endovascular aneurysm repair. Risks benefits complications were discussed in detail with the patient including but not limited to bleeding infection rupture and . He understood and would like to move forward. In addition I did have a telephone conversation with a sister in [place] who is an ICU nurse regarding this as well. They are in agreement and would like to move forward. Thank you for allowing us to assist in his care. If there are any questions or concerns please do not hesitate to contact us. Coding Level of Care Code Est Pt Level 4 (80941) Complex EM visit Add On G2211 Diagnoses Infrarenal abdominal aortic aneurysm (AAA) without rupture I71.43 Abdominal aorta location: infrarenal aorta Presence of rupture: without rupture
== END 2024-06-17 13:52 | disposition home or self-care (01) ==
PROVIDERS: PCP Internal Medicine; Visit Provider Surgery Vascular Surgery
DX: I71.43 Infrarenal abdominal aortic aneurysm, without rupture (principal)
CPT/HCPCS: 99214; G2211

== ENCOUNTER → 2024-06-17 13:13 | Outpatient (BNVA) | payer MEDICARE, MEDICAID, SELFPAY | PROVIDERS: PCP Internal Medicine; Visit Provider Surgery Vascular Surgery | DX: I71.43 Infrarenal abdominal aortic aneurysm, without rupture (principal) | CPT/HCPCS: 99212 ==

== ENCOUNTER 2024-06-19 08:30 | Outpatient (AMB) | payer MEDICARE, MEDICAID, SELFPAY ==
--- NOTE | 2024-06-19 08:45 | MHC.OFFVIS ---
Vital Signs 06/19/24 08:49 Height 5 ft 10 in Weight 196 lb 3.382 oz BMI 28.2 BP 122/74 Blood Pressure Location Lt brachial Position Sitting Pulse 82 Intake Visit Reasons: Preop./Yarelis/ Survey Methodologist Required: No Accompanied by: Self / Same As Patient Allergies No Known Allergies Allergy (Mild, Verified 06/17/24 13:32) NONE Medication List - Last Reconciled 06/19/24 by Jevon Costa MD ascorbic acid (vitamin C) (Vitamin C) 500 mg PO DAILY aspirin 81 mg PO DAILY cholecalciferol (vitamin D3) (Vitamin D3) 50 mcg PO DAILY diclofenac sodium 1% 2 grams topical QID gabapentin 300 mg PO BID lisinopril 5 mg PO DAILY lovastatin 40 mg PO DAILY metoprolol tartrate 25 mg PO BID polyethylene glycol 3350 (Miralax) 17 grams PO DAILY PRN sertraline 50 mg PO DAILY HPI Comments Details: This is a cardiology consultation regarding preoperative risk stratification for vascular procedure. It seems that he has a saccular abdominal aortic aneurysm and that needs endovascular repair. Patient himself denies any cardiac issues in the past including coronary disease or myocardial infarction or cardiomyopathy. He seems quite frail and walks with a walker. Within limits of his activity, he does not have any clear-cut symptoms like angina. 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 Review of Systems Const Denies chills, Denies daytime sleepiness, Denies fatigue, Denies fever(s), Denies poor appetite, Denies snoring, Denies stops breathing during sleep, Denies weakness, Denies weight gain and Denies weight loss Eyes Denies loss of vision ENT Denies dizziness and Denies hearing loss Card Denies chest pain, Denies irregular heart rhythm, Denies claudication, Denies leg edema, Denies lightheadedness, Denies palpitations, Denies dyspnea on exertion and Denies orthopnea Resp Denies cough, Denies excessive phlegm production, Denies dyspnea on exertion, Denies snoring and Denies wheezing GI Denies abdominal pain, Denies hematochezia, Denies change in bowel habits, Denies nausea and Denies vomiting Denies dysuria and Denies urinary frequency Musc Denies arthralgias, Denies muscle weakness, Denies numbness and Denies other Skin/Breast Denies nail changes and Denies rash Neuro Denies Abnormal speech present, Denies dizziness, Denies loss of vision, Denies memory loss, Denies numbness and Denies weakness Psych Denies depression and Denies memory loss Endo Denies fatigue and Denies palpitations Rylan/Lymph Denies easy bruising Aller/Immun Denies wheezing Physical Exam Vital Signs: BMI result Body Mass Index 28.2 Const General: comfortable and no acute distress Orientation/consciousness: patient oriented x3 HEENT Other: Unremarkable Head: Yes normal to inspection Neck Neck: Yes normal visual inspection Chest Chest palpation & inspection: normal inspection of the chest Resp Auscultation: clear to auscultation bilaterally Cardio Palpation: normal PMI Heart sounds: S1 normal heart sound present, S2 normal heart sound present, no gallops, no murmurs and no rubs GI Palpation (GI): Soft to palpation Back/Spine/Pelvis Other: unremarkable Skin General skin exam: no rashes or lesions noted Neuro General: patient oriented x3 Speech: No Abnormal speech present Extrem General: Yes normal to inspection Psych Mental Status: mental status grossly normal Office Procedures EKG Details: EKG with underlying sinus rhythm at 82/Min; cannot exclude old inferior infarct; [place] [id number], Complete Assessment & Plan Assessment & Plan (1) Preoperative cardiovascular examination: Code(s): Z01.810 - Encounter for preprocedural cardiovascular examination Category: Medical (2) Abdominal aortic aneurysm: Code(s): I71.40 - Abdominal aortic aneurysm, without rupture, unspecified Category: Medical Qualifiers: Abdominal aorta location: infrarenal aorta Presence of rupture: without rupture Qualified Code(s): I71.43 - Infrarenal abdominal aortic aneurysm, without rupture (3) Ascending aorta enlargement: Code(s): I77.89 - Other specified disorders of arteries and arterioles Category: Medical (4) Coronary artery calcification seen on CT scan: Code(s): I25.10 - Atherosclerotic heart disease of [place] coronary artery without angina pectoris Category: Medical Plan In the CT chest, ascending aortic size 4.2 cm. Coronary artery calcifications present. Overall, frail patient, minimal ambulation, requiring endovascular repair of abdominal aortic aneurysm, no overt cardiac history. Obtain echocardiogram/Lexiscan myocardial perfusion imaging study. Can make an addendum after review of the above. Coding Level of Care Code New Pt Level 4 (82167) Diagnoses Preoperative cardiovascular examination Z01.810 Infrarenal abdominal aortic aneurysm (AAA) without rupture I71.43 Abdominal aorta location: infrarenal aorta Presence of rupture: without rupture Ascending aorta enlargement I77.89 Coronary artery calcification seen on CT scan I25.10 CPT Codes EKG - CPT: [id number], Complete ([id number])
[2024-06-19 08:49] VITALS: BP 122/74; PULSE 82; BMI 28.2
== END 2024-06-19 09:13 | disposition home or self-care (01) ==
PROVIDERS: PCP Internal Medicine; Visit Provider Internal Medicine
DX: I71.43 Infrarenal abdominal aortic aneurysm, without rupture (principal); I77.89 Other specified disorders of arteries and arterioles; I25.10 Atherosclerotic heart disease of native coronary artery without angina pectoris; Z01.810 Encounter for preprocedural cardiovascular examination; R94.31 Abnormal electrocardiogram [ECG] [EKG]
CPT/HCPCS: 93010; 99214

== ENCOUNTER → 2024-06-19 08:30 | Outpatient (BNVA) | payer MEDICARE, MEDICAID, SELFPAY | PROVIDERS: PCP Internal Medicine; Visit Provider Internal Medicine | DX: Z01.810 Encounter for preprocedural cardiovascular examination (principal); I71.43 Infrarenal abdominal aortic aneurysm, without rupture; I77.89 Other specified disorders of arteries and arterioles; I25.10 Atherosclerotic heart disease of native coronary artery without angina pectoris | CPT/HCPCS: 93005; 99212 ==

== ENCOUNTER → 2024-07-15 07:44 | Outpatient (REF) | payer MEDICARE, MEDICAID, SELFPAY ==
--- NOTE | 2024-07-15 07:48 | CA_ITS ---
Acquisition Time: 2024-07-15 10:07:45 Total Exercise Time: 00:02:00 Test Indications: CAD, PREOP Medications: SEE H Protocol: LEXISCAN Max HR: 081 BPM 54% of Pred: 149 BPM Max BP: 124/062 mmHG Max Work Load: 1.0 METS Pharmacologic stress test with Lexiscan, while pt marches in his chair, with reports of feeling weary , no chest discomfort, with isolated PAC, with normotensive response to injection. Nondiagnostic EKG for ischemia. In recovery, pt treated with IVP Aminophylline 75 mg to reverse Lexiscan, after which pt feeling back to baseline. Nuclear images pending. Test reviewed with Dr. Ayala. Referred By: Jevon Costa Overread By: Andrew Grigsby
--- NOTE | 2024-07-15 07:48 | CA_ITS ---
Transthoracic Echocardiogram Patient (Last, First, Middle): Tello Powell, Gender: Male Date of : 1955 Age: 69 Procedure Date: 07/15/2024 Procedure Type: Transthoracic Echocardiogram Location: OP Height: 177. cm Weight: 95.26 kg BSA: 2.12 m2 Heart Rate: 63 bpm BP: 100 / 70 mmHg Drafter Refrigeration: MILANA Orr MD: Jevon Costa MD Foreign Service Officer: Tyree Ayala MD Symptoms: Z01.810 - Encounter for preprocedural cardiovascular examination Study Quality: Fair ECG Rhythm: Sinus Conclusions: - 1. Normal LV ejection fraction of 60 65% with impaired relaxation filling pattern 2. Calcific aortic and mitral valve changes noted with trivial aortic regurgitation 3. Normal RV systolic pressure 4. Upper limits of normal ascending aortic size 5. No gross pericardial effusion Findings Left Ventricle Normal left ventricular size, thickness, and systolic function. The visually estimated ejection fraction is between 60-65%. Spectral Doppler is indicative of an impaired relaxation filling pattern. E/E prime ratio is between 8 and 15 consistent with indeterminate filling pressures. Right Ventricle Normal right ventricular cavity size and systolic function. Atria The left atrium is normal in size. Interatrial shunt cannot be excluded. The right atrium was not well visualized. Aortic Valve There is mild calcification of the aortic valve. There is no aortic valve stenosis. There is trace (trivial) aortic valve regurgitation. Mitral Valve There is mild anterior and posterior mitral leaflet thickening. There is mild mitral annular calcification. There is trace mitral valve regurgitation. There is no mitral valve stenosis. Pulmonic Valve The pulmonic valve was not well visualized. Tricuspid Valve Likely normal tricuspid valve structure and function. There is trace tricuspid valve regurgitation. The right ventricular systolic pressure is normal. The right ventricular systolic pressure is 20 mmHg. Normal right atrial pressure. There is no evidence of pulmonary hypertension. Great Vessels The pulmonary artery was not well visualized. There is no dilatation of the ascending aorta measuring 3.60 cm. Small plaque is seen in the sino tubular ridge. Venous The inferior vena cava is normal in size and collapses greater than 50% with inspiration. Pericardium/Pleural There is no evidence of pericardial effusion. Prior Study Comparison no previous study in the last 5 years for comparison Measurements 2D Linear Measurements IVSd: 1.05 0.6-0.9/0.6-1.0 cm LVIDd: 3.64 3.9-5.3/4.2-5.9 cm LVIDd Index: 1.72 2.4-3.2/2.2-3.1 cm/m2 LVIDs: 2.39 2.0-3.6 cm LVPWd: 1.21 0.7-1.1 cm LA Diam: 3.80 2.7-3.8/3.0-4.0 cm LAIDs Index: 1.79 1.5-2.3 cm/m2 LV Mass: 163.44 67-162/88-224 g LV Mass Index: 77.09 43-95/49-115 g/m2 LVOT Diam: 2.20 3.0+(-)1.3 cm 2D Systolic Function EF 4C: 65.90 >55% EF 2C: 57.80 >55% EF BiP: 61.50 >55% Mitral Valve MV Pk E: 0.51 MV PK A: 0.86 MV Decel Time: 361.00 E/A: 0.60 E'Lateral: 6.20 E'Medial: 4.57 E/E' Med: 11.10 E/E' Lat: 8.20 PHT: 106.00 MVA PHT: 2.08 Decel [place]: 1.40 Aortic Valve AoV Pk Mark: 1.19 AoV Mn Mark: 0.86 AoV VTI: 0.26 AoV Pk Grad: 6.00 Aov Mn Grad: 3.00 GIGI Cont.VTI: 2.98 LVOT LVOT Pk Mark: 0.91 LVOT Mn Mark: 0.58 LVOT VTI: 0.21 LVOT Pk Grad: 3.00 LVOT Mn Grad: 2.00 LVOT Diam: 2.20 LVOT Area: 3.80 Diastolic Function MV Pk E: 0.51 MV Pk A: 0.86 E/A: 0.60 E'Medial: 4.57 E/E' Med: 11.10 E' Laterial: 6.20 E/E' Lat: 8.20 Right Ventricle TAPSE (mm): 20.70 TVS' Mark: 12.50 Tricuspid Valve TR Pk Mark: 2.04 TR Pk Grad: 17.00 RA Press: 3.00 RVSP: 20.00 Great Vessels Aorta Sinus of Valsalva: 4.00 2.0-3.5 cm Ao Asc: 3.60 2.1-3.4 cm Ao Arch: 3.00 Pulmonary Valve PV Pk Mark: 1.07 Peak PV Grad: 5.00 Updated in Other Vendor System with Status of Final Tyree Ayala MD electronically signed on 07/15/2024 6:01:37 PM with status of Final
== END ==
LOC: HO.CARD 07:44
PROVIDERS: PCP Internal Medicine; Visit Provider Internal Medicine
DX: Z01.810 Encounter for preprocedural cardiovascular examination (principal)
CPT/HCPCS: 93017; 93306; J0280; J2785

== ENCOUNTER → 2024-07-15 07:48 | Outpatient (BNV) | payer MEDICARE, MEDICAID, SELFPAY | PROVIDERS: PCP Internal Medicine | DX: I25.10 Atherosclerotic heart disease of native coronary artery without angina pectoris (principal) | CPT/HCPCS: 78452; 93016; 93018; 93320; 93325; 93350 ==

== ENCOUNTER → 2024-07-15 | Outpatient (REF) | payer MEDICARE, MEDICAID, SELFPAY ==
--- NOTE | ~2024-07-15 | NM_ITS ---
Lexiscan Myocardial perfusion study Indication: Preoperative cardiovascular risk stratification Technique: The patient was brought in for a 07/05/2024 Lexiscan perfusion study on 07/15/2024 and was injected 0.4 mg of Lexiscan intravenously. Within a minute of this injection 35 mCi of sestamibi was given intravenously. Images were obtained using the SPECT gamma camera interlaced with the gating device. Images were obtained in supine position. Resting perfusion study was performed on 07/17/2024. Patient was administered 35 mCi of sestamibi intravenously at rest. Images were then obtained in supine position. Images obtained without without CT attenuation. Total DLP 167 mGy-cm. Images were processed with the software and compared side to side in short axis, horizontal long axis and vertical long axis views. Findings: The stress perfusion study showed nonattenuation small area of moderately increased uptake in the basal inferolateral wall of the LV myocardium. Remainder of the LV myocardium is normally perfused. Attenuated corrected images show moderately reduced uptake in the distal anterior and apical wall of the LV myocardium.. The gated study shows normal LV systolic function with calculated LVEF of 55%. LV cavity is normal in size. The gated study shows normal systolic wall thickening and contraction of segments. Resting study shows no change in perfusion pattern compared to stress perfusion study. Gating at rest reveals normal systolic wall motion with ejection fraction at greater than 55%. The findings are consistent with no clear reversible defect suggestive of ischemia. Likely normal myocardial perfusion. NM/NM cardiolite stress test Impression: 1. Myocardial perfusion imaging study shows [likely normal myocardial perfusion 2. Gated LVEF is 55% 3. Transient ischemic dilatation not present Nondiagnostic changes on EKG. Electronically signed by: Tyree Ayala MD 07/17/2024 04:28 PM [facility] [place]
== END ==
LOC: HO.CARD
PROVIDERS: PCP Internal Medicine; Visit Provider Internal Medicine
DX: Z01.810 Encounter for preprocedural cardiovascular examination (principal)
CPT/HCPCS: 78452; A9500

== ENCOUNTER 2024-07-28 06:53 | Inpatient (IN) | payer MEDICARE, MEDICAID, SELFPAY ==
[2024-07-18 12:29] VITALS: BP 126/82; PULSE 63; RESP 18; O2SAT 95; BMI 28.0
[2024-07-18 13:39] LABS: Hemoglobin 15.4 g/dl (14.0-18.0); Mean Corpuscular HGB Conc 32.8 g/dl (31.0-36.0); Mean Corpuscular Hemoglobin 30.5 pg (27.0-33.0); Mean Corpuscular Volume 93.1 fL (80.0-98.0); Platelet Count 226 X10*3/uL (160-400); Red Blood Count 5.05 X10*6/uL (4.60-5.80); Red Cell Distribution Width 12.8 % (11.0-16.0); White Blood Count 8.3 X10*3/uL (4.8-10.8)
[2024-07-18 13:44] LABS: Prothrombin Time 12.1 SEC (10.9-12.4)
[2024-07-18 13:46] LABS: Partial Thromboplastin Time 35.5 SEC (26.0-36.8)
[2024-07-18 14:10] LABS: Anion Gap 12 (12-20); Blood Urea Nitrogen 30 mg/dL (9-16); Calcium 9.4 mg/dL (8.4-10.2); Carbon Dioxide 25 mmol/L (22-29); Chloride 108 mmol/L (96-108); Creatinine Clr Calc Pharmacy 62.7; Estimated Glomerular Filt Rate 59; Glucose Random 113 mg/dL (60-115); Potassium 4.5 mmol/L (3.3-5.1); Sodium 140 mmol/L (135-145)
[2024-07-28] VITALS (23 sets, daily range): BP systolic 120–160; BP diastolic 56–97; PULSE 56–90; RESP 11–20; TEMP 36.1–36.6; O2SAT 90–97; BMI 27.8
--- NOTE | ~2024-07-28 | FL_ITS ---
EXAMINATION: XR FLUOROSCOPY WITH IMAGES CLINICAL INFORMATION: Placement of aortic stent graft normal aorta. COMPARISON: No prior. Correlation made with CT angiography abdomen and pelvis 06/02/2024. TECHNIQUE: Fluoroscopy provided to: Dr. Santoyo. Fluoroscopy time: 14.3 minutes DAP: 84.169 mGycm2 Images: 8 Cine runs: 2 contrast enhanced FINDINGS: Images demonstrate sequential cannulation of both common femoral arteries, with subsequent placement of overlapping stent grafts within the abdominal aorta. Refer to the full operative report for details. FL/FL guidance in OR IMPRESSION: Fluoroscopic guidance. Electronically signed by: Dav Hedrick MD 07/30/2024 11:23 AM [facility]
[2024-07-28] MEDS: Lactated Ringers 1,000 ML 100 ML IVCONT ×2 (06:55→17:10)
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
--- NOTE | 2024-07-28 07:48 | MHC.SHP ---
Pre-Procedural Eval Section A - 24 Hr Update-Section A only Date of Service: 07/28/24 The patient is an INPATIENT: No Changes since office visit: Yes Patient answered all questions The patient has been examined within 24 hours of the surgical procedure. The History & Physical has been completed within 30 days and I have reviewed it.: Yes Section B - Complete if H&P > 30 days Chief Complaint: Postop Allergies: Allergies Allergy/AdvReac Type Severity Reaction Status Date / Time No Known Allergies Allergy Mild NONE Verified 07/28/24 06:19 Plan I have reviewed the history and physical and performed a pertinent physical examination on my patient. No changes have occurred unless specified. Time Spent With Patient Time: Total time managing care of this patient today ____ minutes.
--- NOTE | 2024-07-28 10:19 | P.OP_ITS ---
Operative Note Operative Note Date of Service: 07/28/24 Narrative: Operative note by [facility] Preoperative diagnosis: Abdominal aortic aneurysm Postoperative diagnosis: Same Procedure: 1. Right femoral artery cutdown 2. Percutaneous left common femoral artery access 3. Endovascular aortic aneurysm repair (Endologix AFX 2 device) 4. Radiologic supervision and interpretation Surgeon:Pérez Santoyo M.D. Associate Team Physician: Sonia Salcedo Anesthesia: General endotracheal Specimens: None Drains: None Estimated blood loss: 100 mL Indications: Pleasant 69-year-old gentleman with history of a saccular aneurysm of 3.3 cm. The patient had he is aortic aneurysm confirmed on CT angiogram. Based on the anatomy and topography he is now for endovascular aneurysm repair possible open repair. The patient has signed the informed consent after reviewing risks, complications, benefits, and alternatives previously discussed with the patient. The patient was given the opportunity to ask any additional questions or voice any concerns. All questions were answered to the patient's satisfaction. Procedure in detail: Patient was brought to the operating room prior to which a time-out was called for patient identification and site verification abdomen and bilateral groins were prepped and draped in a standard surgical fashion. Cutdown was performed on the right common femoral artery using standard technique. This was a transverse incision. We then dissected down to the common femoral artery. This was encircled with silastic loops. Left common femoral was accessed under ultrasound guidance with a percutaneous 5 Gabonese sheath. The ipsilateral side which was the right side a 5 Gabonese sheath was then placed as well. Angiogram was performed to measure the vessel length and characterize the anatomy and its topography. We then exchanged for a 7 Gabonese sheath, and then placed a marker pigtail catheter up the left side into the level of the aorta at the level of the renals. On the right side which was the HC side we exchanged out the Bentson wire for a Lunderquist wire. This was done through a angled glide cath. We parked the tip the Lunderquist at the aortic arch. At this time 5000 units of heparin was administered. After 5 minutes of circulation time we loaded the 25-90 AFX2 bifurcated device onto the Lunderquist wire and advanced the contralateral wire up through the 19 Gabonese OD FX introducer sheath using the wire guide. Contralateral wire was snared and pulled out the contra side. FX 2 bifurcated device was then transferred into the a FX introducer sheath and advanced under fluoroscopic guidance until the distal limbs were above the aortic bifurcation releasing the limbs of the graft. We pulled the entire system down on to the aortic bifurcation. We deployed the main body of the graft by pulling on the control cord handle. We then deployed the contra limb by pulling the yellow limb cover, then we advanced a pigtail catheter over the contra wire until the tip was in contact with the wire lock. We held the pigtail catheter in place and pulled the contra wire to release it from the wire lock. We deployed the ipsi limb by pinning the inner core and retracting the a FX introducer sheath. We then deployed a 20-95 suprarenal endograft and performed angiogram to visualize the renal arteries. We removed the extension delivery device from the a FX introducer sheath and advanced a Merit Q50X balloon to the proximal end of the endograft main body. We ballooned the endograft system through the main body and ipsilateral limb. We then inserted the balloon through the contralateral side and ballooned the contralateral limb as well. We performed a final angiogram, removed catheters and sheaths. The left groin was closed with a StarClose closure device. The right groin was closed with a 6 0 Prolene in a running fashion. We then reapproximated the deep layer with 2-0 Polysorb. The superficial layer was then reapproximated with a 3-0 Polysorb. Finally skin was closed with a running subcuticular 4 O Monocryl. Steri-Strips and a sterile dressing were applied. At the end the case sponge needle instrument counts were correct. Patient tolerated the procedure well, and returned to recovery with stable vitals Interpretation of films: 1. Ultrasound guidance demonstrated appropriate puncture 2. Initial aortogram confirmed anatomy and topography the infrarenal aortic aneurysm. 3. Completion angiogram demonstrated appropriate deployment of graft with no evidence of endoleak. Conclusion: Successful deployment Endologix AFX2 aortic endograft. This note is constructed using voice recognition software. While every effort has been made to ensure accuracy, broadcast systems engineer errors may have been included. Thank you for allowing me to participate in the care of your patient. Yours sincerely, Pérez Santoyo MD, FACS, R.P.V.I.
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
--- NOTE | 2024-07-28 12:08 | W.PM.OPN ---
Operative Note Operative Note Date of Service: 07/28/24 Narrative: Operative note by [facility] Preoperative diagnosis:[] Postoperative diagnosis:[] Procedure:[] Surgeon:Pérez Santoyo M.D. Chief Of Internal Medicine:[] Anesthesia:[] Specimens:[] Drains:[] Estimated blood loss:[] Indications:[] The patient has signed the informed consent after reviewing risks, complications, benefits, and alternatives previously discussed with the patient. The patient was given the opportunity to ask any additional questions or voice any concerns. All questions were answered to the patient's satisfaction. Procedure in detail:[] This note is constructed using voice recognition software. While every effort has been made to ensure accuracy, change management analyst errors may have been included. Thank you for allowing me to participate in the care of your patient. Yours sincerely, Pérez Santoyo MD, FACS, R.P.V.I.
--- NOTE | 2024-07-28 14:54 | MHC.CM.PN ---
CM RECEIVED MESSAGE FROM [employer] THAT PT HAS BEEN ACTIVE IN PAST.
[2024-07-28] MEDS: oxyCODONE HCl Immed Release 5 MG TABLET PO ×2 (16:36→22:59)
--- NOTE | 2024-07-28 17:45 | PHA.MEDREC ---
Addendum entered by Demarco Orellana 07/28/24 18:14: reviewed Original Note: Pharmacy Consult ? Medication Reconciliation Pharmacy has completed the medication reconciliation. Spoke with patient and he was able to confirm his medications. He confirmed his Metoprolol 50mg tab and confirmed he takes 1/2 tablet twice daily. He also confirmed he is no longer taking the Trazodone 50mg and states he stopped it about 4 months ago due to not liking the effects of it and states he is now taking Tylenol PM, taking 2 tablets at bedtime as needed and Melatonin 5mg, taking 2-3 tabs as needed for sleep. He confirmed he took his morning dose of Metoprolol and Gabapentin today and everything else yesterday.
[2024-07-28 20:31] LABS: MANUAL DIFF FLAG NO
[2024-07-28 20:40] LABS: Basophils Percent Auto 0.1 % (0-2); Hematocrit 40.8 % (42.0-52.0); Hemoglobin 13.8 g/dl (14.0-18.0); Imm Gran Abs Auto 0.07 X10*3/uL (0.00-0.03); Imm Gran Pct Auto 0.5 % (0.0-0.4); Lymphocytes Absolute Auto 0.7 X10*3/uL (1.2-4.9); Lymphocytes Percent Auto 4.9 % (20-40); Mean Corpuscular HGB Conc 33.8 g/dl (31.0-36.0); Mean Corpuscular Hemoglobin 30.8 pg (27.0-33.0); Mean Corpuscular Volume 91.1 fL (80.0-98.0); Monocytes Absolute Auto 0.7 X10*3/uL (0.1-1.2); Monocytes Percent Auto 4.9 % (2-11); Neutrophils Absolute Auto 12.1 x10*3/uL (2.0-8.3); Neutrophils Percent Auto 89.6 % (45-73); Platelet Count 217 X10*3/uL (160-400); Red Blood Count 4.48 X10*6/uL (4.60-5.80); Red Cell Distribution Width 12.9 % (11.0-16.0); White Blood Count 13.6 X10*3/uL (4.8-10.8)
[2024-07-28 20:48] LABS: Anion Gap 13 (12-20); Blood Urea Nitrogen 25 mg/dL (9-16); Calcium 8.8 mg/dL (8.4-10.2); Carbon Dioxide 22 mmol/L (22-29); Chloride 108 mmol/L (96-108); Creatinine Clr Calc Pharmacy 68.8; Estimated Glomerular Filt Rate > 60; Glucose Random 167 mg/dL (60-115); Potassium 4.4 mmol/L (3.3-5.1); Sodium 139 mmol/L (135-145)
[2024-07-28] MEDS: Pravastatin Sodium 40 MG TABLET PO (21:03)
[2024-07-28] MEDS: Metoprolol Tartrate 25 MG TABLET PO (21:03)
[2024-07-28] MEDS: Gabapentin 300 MG CAPSULE PO (21:03)
[2024-07-28] MEDS: Ascorbic Acid 500 MG TABLET PO (21:03)
[2024-07-28] MEDS: traZODone HCL 25 MG HALFTAB PO (21:03)
[2024-07-28] MEDS: Calcium Carbonate 750 MG TAB.CHEW PO (22:33)
[2024-07-29] VITALS (12 sets, daily range): BP systolic 100–120; BP diastolic 46–64; PULSE 58–75; RESP 12–18; TEMP 36.4–36.8; O2SAT 93–96; BMI 27.8
[2024-07-29] MEDS: Acetaminophen 325 MG TABLET 650 MG PO ×2 (02:10→10:57)
[2024-07-29] MEDS: Lactated Ringers 1,000 ML 100 ML IVCONT (02:10)
[2024-07-29 05:56] LABS: Hemoglobin 12.2 g/dl (14.0-18.0); Mean Corpuscular Hemoglobin 30.3 pg (27.0-33.0); Mean Platelet Volume 11.3 fL (9.4-12.4); Platelet Count 168 X10*3/uL (160-400); Red Blood Count 4.02 X10*6/uL (4.60-5.80); Red Cell Distribution Width 12.8 % (11.0-16.0); White Blood Count 11.3 X10*3/uL (4.8-10.8)
[2024-07-29 06:14] LABS: Anion Gap 11 (12-20); Blood Urea Nitrogen 21 mg/dL (9-16); Calcium 8.6 mg/dL (8.4-10.2); Carbon Dioxide 23 mmol/L (22-29); Chloride 107 mmol/L (96-108); Creatinine Clr Calc Pharmacy 76.4; Estimated Glomerular Filt Rate > 60; Glucose Random 113 mg/dL (60-115); Sodium 137 mmol/L (135-145)
--- NOTE | 2024-07-29 08:15 | HO.POSTANES ---
Post Anesthesia Evaluation Post Anesthesia Evaluation Date of Service: 07/29/24 Vital Signs: Vital Signs Temp Pulse Resp BP Pulse Ox O2 Del Method O2 Flow Rate 07/29/24 08:00 97.5 F 66 18 100/53 L 94 Nasal Cannula 2 07/29/24 07:17 93 Room Air 07/29/24 07:00 60 15 113/55 L 95 Nasal Cannula 2 07/29/24 06:00 73 14 107/56 L 95 Nasal Cannula 2 07/29/24 05:00 61 12 113/60 94 Nasal Cannula 1 07/29/24 04:00 97.5 F 64 15 103/52 L 96 Nasal Cannula 1 07/29/24 03:00 63 15 111/54 L 95 Room Air 07/29/24 02:00 98.3 F 65 15 106/51 L 96 Room Air 07/29/24 01:00 75 16 107/46 L 95 Room Air 07/29/24 00:00 97.7 F 66 14 120/56 L 94 Room Air 07/28/24 23:00 72 11 L 120/56 L 93 Room Air 07/28/24 21:51 69 15 135/76 90 L Room Air 07/28/24 21:03 74 07/28/24 21:00 72 15 157/97 H 92 Room Air Anesthesia: General Endotracheal-GETA Mental Status: Awake Pain Control: Satisfactory Nausea/Vomiting: None Hydration: Adequate Anesthesia-Related Issues: No Anes. Related Issues
[2024-07-29] MEDS: Sertraline HCL 50 MG TABLET PO (08:44)
[2024-07-29] MEDS: Cholecalciferol (Vitamin D3) 25 MCG TABLET 50 MCG PO (08:44)
[2024-07-29] MEDS: Aspirin Enteric Coated 81 MG TABLET.DR PO (08:44)
[2024-07-29] MEDS: Ascorbic Acid 500 MG TABLET PO (08:44)
[2024-07-29] MEDS: Gabapentin 300 MG CAPSULE PO (08:44)
[2024-07-29] MEDS: lisinopriL 5 MG TABLET PO (08:44)
[2024-07-29] MEDS: Metoprolol Tartrate 25 MG TABLET PO (08:45)
--- NOTE | 2024-07-29 08:58 | P.DS_ITS ---
DS: Providers Provider Date of Service: 07/29/24 Date of admission: 07/28/24 06:53 Date of discharge: 07/29/24 Primary care physician: Abel Beltran MD DS: Diagnosis Discharge Diagnosis (1) Abdominal aortic aneurysm: Status: Acute DS: Summary Hospital Course Hospital Course: Tello is s/p EVAR, performed yesterday. He has been doing well. He states he did not sleep well but it was loud and he was uncomfortable in bed. He states he was able to eat yesterday without difficulty and is eating breakfast this morning. He has been drinking well. He had his Cramer removed but has not urinated. He is passing gas but has not had a BM. He states the pain is uncomfortable, not very painful. He has been taking Oxy and Tylenol as needed, which he states is helping. He is ready to be discharged home today. We discussed the importance about taking it easy and not lifting anything heavier than a gallon of milk. We discussed resting but not being completely sedentary. He states his sisters came in to help him at home. We discussed that he can ge wer tomorrow and to keep the surgical sites clean and dry. I discussed that I will send in a prescription to his pharmacy for Oxy 5mg tid, to be used for moderate-severe pain but to start with Tylenol for pain management. I reviewed the labwork from this morning, he did have a slight drop in H/H; BUN/Cr is stable. We will have him follow up with us in the office in 2w, the appt is scheduled for 08/12. We discussed that if there are any questions or concerns, that he needs to reach out to our office. Time Attestation Discharge Coordination Time (in mins): 45 Quality: Safe Use of Opioids Does Pt have an Active Cancer Diagnosis on the Problem List?: No Quality: Stroke Does the patient have a stroke diagnosis?: No Physical Exam Vital Signs: Vital Signs: Last Vital Signs Temp 97.5 F 07/29/24 08:00 Pulse 66 07/29/24 08:00 Resp 18 07/29/24 08:00 BP 100/53 L 07/29/24 08:00 Pulse Ox 94 07/29/24 08:00 O2 Del Method Nasal Cannula 07/29/24 08:00 O2 Flow Rate 2 07/29/24 08:00 Oxygen Flow Rate 1 07/28/24 07:41 BMI result Body Mass Index 27.8 Const: General: comfortable and no acute distress Orientation/consciousness: patient oriented x3 HEENT: Ears: hearing grossly normal bilaterally Resp: Effort & Inspection: normal respiratory effort and able to speak in complete sentences Auscultation: clear to auscultation bilaterally Cardio: Rate: regular rate Rhythm: regular rhythm Heart sounds: S1 normal heart sound present and S2 normal heart sound present Bruits: no abdominal aortic bruits, no carotid bruits, no femoral bruits and no renal bruits GI: Palpation (GI): No Abdominal aortic bruit present Neuro: General: patient oriented x3 Cranial nerves: Yes CN's II-XII intact bilaterally Extrem: Other: Bilateral femoral: sites C/D/I. Bilateral palpable DP pulses. Legs are warm to the touch. DS: Data Data Completed and Pending Labs on day of discharge: Laboratory Results - last 24 hr 07/28/24 07/29/24 20:25 05:42 WBC 13.6 H 11.3 H RBC 4.48 L 4.02 L Hgb 13.8 L 12.2 L Hct 40.8 L 37.0 L MCV 91.1 92.0 MCH 30.8 30.3 MCHC 33.8 33.0 RDW 12.9 12.8 Plt Count 217 168 MPV 11.0 11.3 Immature Gran % (Auto) 0.5 H Neut % (Auto) 89.6 H Lymph % (Auto) 4.9 L [place] % (Auto) 4.9 Eos % (Auto) 0.0 Baso % (Auto) 0.1 Lymph # (Auto) 0.7 L [place] # (Auto) 0.7 Eos # (Auto) 0.0 Baso # (Auto) 0.0 Abs Immat Gran (auto) 0.07 H Absolute Neuts (auto) 12.1 H Absolute Nucleated RBC 0.000 0.000 Nucleated RBC % (auto) 0.0 0.0 Sodium 139 137 Potassium 4.4 4.0 Chloride 108 107 Carbon Dioxide 22 23 Anion Gap 13 11 L BUN 25 H 21 H Creatinine 1.10 0.99 Estim Creat Clear Calc 68.8 76.4 Estimated GFR > 60 > 60 Random Glucose 167 H 113 Calcium 8.8 D 8.6 Discharge Plan Discharge Anticipated Discharge Date/Time: 07/29/24 12:30 Patient Disposition: Home, Self-Care Discharge Diagnosis: s/p EVAR Referrals: Abel Beltran MD [Primary Care Provider] - 1 Week Discharge Medications: New oxycodone 5 mg tablet 5 mg PO TID PRN (Reason: pain) Qty: 20 0RF Rx Instructions: Partial Fill upon patient request. Continued diphenhydramine-acetaminophen [Tylenol PM Extra Strength] 25-500 mg Tablet 2 tab PO BEDTIME PRN (Reason: Sleep/pain) melatonin 5 mg Tablet 10 - 15 mg PO BEDTIME PRN (Reason: Sleep) sertraline 50 mg tablet 50 mg PO DAILY ascorbic acid (vitamin C) [Vitamin C] 500 mg tablet 500 mg PO BID lovastatin 40 mg tablet 40 mg PO BEDTIME metoprolol tartrate 50 mg tablet 25 mg PO BID lisinopril 5 mg tablet 5 mg PO DAILY gabapentin 300 mg capsule 300 mg PO BID aspirin 81 mg tablet,delayed release (DR/EC) 81 mg PO DAILY cholecalciferol (vitamin D3) [Vitamin D3] 50 mcg (2,000 unit) capsule 50 mcg PO DAILY Discharge Orders: Discharge Order (Routine); Ordered 07/29/24 Ordered By: Sonia Reyes Diet: Advance to usual diet Activity on Discharge: As tolerated Stand Alone Forms: Patient Portal Discharge page Print Language: [place] Care Plan Goals: Slow return to activity. Health Concerns: s/p JAGDISH Plan of Treatment: Skin glue was used and you may shower as early as tomorrow. Take it easy today and you may ambulate around the house. Within 24 hours you can resume normal activity You may climb a flight of stairs as tolerated Do not lift anything heavier than a gallon of milk for [address] Santoyo in follow-up in approximately 2 weeks time. You should already have an appointment if not please call my office at [phone] Please see above for any change in medications If you notice excessive bleeding from the groins, please immediately call my office or return to the emergency room. Assessment: blake/melo DUBON
--- NOTE | 2024-07-29 09:29 | P.PNCC_ITS ---
Subjective Subjective Date of Service: 07/29/24 Interval History: no significant overnight events Critical Care Time (minutes): 0 Physical Exam 2 Vital Signs: Vital Signs: Last Vital Signs Temp 97.5 F 07/29/24 08:00 Pulse 66 07/29/24 08:00 Resp 18 07/29/24 08:00 BP 100/53 L 07/29/24 08:00 Pulse Ox 94 07/29/24 08:00 O2 Del Method Nasal Cannula 07/29/24 08:00 O2 Flow Rate 2 07/29/24 08:00 Oxygen Flow Rate 1 07/28/24 07:41 BMI result Body Mass Index 27.8 Const: General: cooperative, healthy appearing, comfortable, no acute distress, well developed, alert, awake and Physically active O rientation/consciousness: patient oriented x3 HEENT: Head: Yes normal to inspection, Yes normocephalic and Yes atraumatic Eyes: General: appearance normal, both eyes and all related structures Neck: Neck: Yes normal visual inspection, Yes full ROM, Yes no meningeal signs, Yes trachea midline and Yes supple Chest: Chest palpation & inspection: normal inspection of the chest Resp: Other: no appreciable rales, rhonchi, wheezing Effort & Inspection: normal respiratory effort Cardio: Rate: regular rate Rhythm: regular rhythm GI: Inspection: Yes normal to inspection, No Abdominal wall edema and No distended Palpation (GI): Soft to palpation, not firm, nontender, no guarding and not rigid : Male General Exam: Yes normal external exam Skin: General skin exam: no rashes or lesions noted Neuro: General: patient oriented x3, tone normal, moves all extremities, no meningeal signs and no focal motor deficits Extrem: Other: R groin bandaged, clean, dry, intact; no appreciable fluctuance, induration General: Yes normal to inspection, Yes full ROM, Yes capillary refill normal and Yes no clubbing, cyanosis or edema Psych: Appearance: grossly normal Objective Data Labs 07/29/24 05:42 07/29/24 05:42 Labs: Laboratory Results - last 24 hr 07/28/24 07/29/24 20:25 05:42 WBC 13.6 H 11.3 H RBC 4.48 L 4.02 L Hgb 13.8 L 12.2 L Hct 40.8 L 37.0 L MCV 91.1 92.0 MCH 30.8 30.3 MCHC 33.8 33.0 RDW 12.9 12.8 Plt Count 217 168 MPV 11.0 11.3 Immature Gran % (Auto) 0.5 H Neut % (Auto) 89.6 H Lymph % (Auto) 4.9 L [place] % (Auto) 4.9 Eos % (Auto) 0.0 Baso % (Auto) 0.1 Lymph # (Auto) 0.7 L [place] # (Auto) 0.7 Eos # (Auto) 0.0 Baso # (Auto) 0.0 Abs Immat Gran (auto) 0.07 H Absolute Neuts (auto) 12.1 H Absolute Nucleated RBC 0.000 0.000 Nucleated RBC % (auto) 0.0 0.0 Sodium 139 137 Potassium 4.4 4.0 Chloride 108 107 Carbon Dioxide 22 23 Anion Gap 13 11 L BUN 25 H 21 H Creatinine 1.10 0.99 Estim Creat Clear Calc 68.8 76.4 Estimated GFR > 60 > 60 Random Glucose 167 H 113 Calcium 8.8 D 8.6 Progress Note: A&P Assessment and plan (1) Abdominal aortic aneurysm: Status: Acute Plan Patient is a 69 Y M w/ hypertension, hyperlipidemia known 3.5 cm aortic aneurysm presenting on 07/28 for elective endovascular aneurysm repair; reportedly uneventful OR course N: no acute issues CV: aortic aneurysm s/p endovascular aneurysm repair; hypertension, hyperlipidemia R: no acute issues GI: no acute issues; advance diet as tolerated : no acute issues H: no acute issues; to avoid chemical DVT prophylaxis adithya-procedurally ID: no acute issues E: no acute issues P: no acute issues Quality Stroke Does the patient have a stroke diagnosis?: No VTE Prior VTE?: No VTE Risk Level:: Medical - moderate - high VTE Device Contraindication: N/A - Device Ordered VTE Drug Contraindication: Treatment Not Tolerated
--- NOTE | 2024-07-29 14:26 | MHC.CM.PN ---
Met with pt to review d/c plan: pt states he resides alone and uses a rolling walker at baseline: has had VNA services in the past. Pt's sister will transport and stay with pt until the weekend to assist prn. Pt declined additional services and will be d/c'd to home today,
== END 2024-07-29 11:07 | disposition home or self-care (01) | DRG 269 ==
LOC: HO.SSSA 07:02 → HO.ICU 10:39
PROVIDERS: Nurse Practitioner; Physician Assistant Surgical; Registered Nurse Community Health; Admitting Provider Surgery Vascular Surgery; PCP Internal Medicine; Visit Provider Surgery Vascular Surgery
PROC: 04V03ZZ Restriction of Abdominal Aorta, Percutaneous Approach (ICD-10-PCS; principal; 2024-07-28 07:30)
DX: I71.43 Infrarenal abdominal aortic aneurysm, without rupture (principal); I10 Essential (primary) hypertension; E78.5 Hyperlipidemia, unspecified; Z87.891 Personal history of nicotine dependence; Z79.82 Long term (current) use of aspirin; Z79.899 Other long term (current) drug therapy
CPT/HCPCS: 36415; 80048; 85025; 85027; 85610; 85730; 86850; 86900; 86901; C1758; C1760; C1769; C1773; C1874; C1887; C1889; C1894; C2628; C9250; J0131; J0690; J1100; J1171; J1644; J2003; J2371; J2405; J2704; J2795; J3010; J7120; Q9967

== ENCOUNTER → 2024-07-28 06:53 | Outpatient (BNV) | payer MEDICARE, MEDICAID, SELFPAY | PROVIDERS: Admitting Provider Surgery Vascular Surgery; PCP Internal Medicine; Visit Provider Surgery Vascular Surgery | DX: I71.40 Abdominal aortic aneurysm, without rupture, unspecified (principal) | CPT/HCPCS: 34705; 34812; 76937 ==

== ENCOUNTER → 2024-07-28 06:53 | Outpatient (BNV) | payer MEDICARE, MEDICAID, SELFPAY | PROVIDERS: Admitting Provider Surgery Vascular Surgery; PCP Internal Medicine; Visit Provider Internal Medicine Critical Care Medicine | DX: I71.43 Infrarenal abdominal aortic aneurysm, without rupture (principal) | CPT/HCPCS: 99223; 99232 ==

== ENCOUNTER 2024-08-12 13:06 | Outpatient (AMB) | payer MEDICARE, MEDICAID, SELFPAY ==
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
--- OUTSIDE RECORDS SUMMARY | 2024-08-12 14:03 | XMS_ITS | Clinical Summary ---
Author Organization [facility] ity Address [address] [place] [address] Care Team Providers Care Window Shade Ring Sewer Name Role Phone Unavailable Primary Care Provider Unavailabl e Social History Tobacco Use Types Packs/Day Years Used Date Smoking Tobacco: Never Assessed Sex and Gender Information Value Date Recorded Sex Assigned at Not on file Gender Identity Not on file Sexual Orientation Not on file Plan of Treatment Health Maintenance Due Date Last Done Comments DTaP,Tdap,and Td Vaccines (1 - Tdap) 1972 Zoster Vaccines (1 of 2) 2003 Pneumococcal Vaccine: 65+ Ye ars (1 of 1 - PCV) 2018 COVID-19 Vaccine ( - 2023-2 5 season) 2024 Influenza Vaccine (#1) 2024 RSV Immunization Patients 60 + Years Old (1 - 1-dose 75+ series) 2028 HIB Vaccines Aged Out No longer eligi ble based on patient's age to complete this topic HPV Vaccines Aged Out No longer eligi ble based on patient's age to complete this topic Hepatitis A Vaccines Aged Out No long er eligible based on patient's age to complete this topic Hepatitis B Vaccines Aged Out No long er eligible based on patient's age to complete this topic IPV Vaccines Aged Out No longer eligi ble based on patient's age to complete this topic MMR Vaccines Aged Out No longer eligi ble based on patient's age to complete this topic Meningococcal ACWY Vaccine Aged Out N o longer eligible based on patient's age to complete this topic RSV Immunization Patients Un ella 20 months Aged Out No longer eligible b ased on patient's age to complete this topic Varicella Vaccines Aged Out No longer eligible based on patient's age to complete this topic
== END 2024-08-12 13:24 | disposition home or self-care (01) ==
PROVIDERS: PCP Internal Medicine; Visit Provider Physician Assistant Surgical
DX: I71.43 Infrarenal abdominal aortic aneurysm, without rupture (principal)
CPT/HCPCS: 99024

== ENCOUNTER → 2024-08-12 13:06 | Outpatient (BNVA) | payer MEDICARE, MEDICAID, SELFPAY | PROVIDERS: PCP Internal Medicine; Visit Provider Surgery Vascular Surgery | DX: I71.43 Infrarenal abdominal aortic aneurysm, without rupture (principal) | CPT/HCPCS: 99212 ==

== ENCOUNTER 2024-11-10 10:53 | Outpatient (REF) | payer MEDICARE, MEDICAID, SELFPAY ==
--- NOTE | ~2024-11-10 | CT_ITS ---
CLINICAL HISTORY: I71.43 - Infrarenal abdominal aortic aneurysm, without rupture CT angiography abdomen and pelvis with contrast. 3-D post processing. Comparison: 06/02/2024 Findings: Excluded infrarenal abdominal aortic aneurysm with aorta bi-iliac stents which is patent. No residual aneurysm. Otherwise abdominal aorta and its major branches are patent. 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 Mesenteric/renal arteries, and iliofemoral systems are patent with no hemodynamically significant stenoses. No consolidation or effusion. Unremarkable gallbladder and solid organs. No urolithiasis. Stable 2.9 cm right adrenal gland adenoma. No bowel obstruction, pneumoperitoneum, or pneumatosis. Moderate colonic stool burden. Pelvic contents unremarkable. Normal appendix No acute fracture. Stable chronic mild compression deformity of the L1 vertebral body. IMPRESSION: No acute findings. Excluded infrarenal abdominal aortic aneurysm with aorto bi-iliac stent which is patent. No residual aneurysm. 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 Stable right adrenal gland adenoma measuring 2.9 cm. This document has been electronically signed by: Ferny Aly MD on 11/11/2024 23:12:25
[2024-11-10] MEDS: iohexoL 350 MG/ML 75 ML INFUS..BTL 80 ML IV (11:27)
--- OUTSIDE RECORDS SUMMARY | 2024-11-10 13:02 | XMS_ITS | Clinical Summary ---
Author Organization [address] [facility] Address [address] [place] [address] Phone Care Team Providers Care Fast Brim Pouncer Name Role Phone Physician, Pcp Unknown Primary Care Provider Evy vailable Encounters Date Type Department Care Team Description 09/10/2024 Lab Requisition [facility] - Main Lab [address] [facility] [place] [address] Tello Tesfaye MD Personal history of malignant neoplasm of bladder from Last 3 Months Social History Tobacco Use Types Packs/Day Years Used Date Smoking Tobacco: Never Assessed Sex and Gender Information Value Date Recorded Sex Assigned at Not on file Legal Sex Male 12:06 AM EST Gender Identity Not on file Sexual Orientation Not on file Plan of Treatment Health Maintenance Due Date Last Done Comments DTaP,Tdap,and Td Vaccines (1 - Tdap) 1972 Pneumococcal Vaccine: 50+ Ye ars (1 of 1 - PCV) 2003 Zoster Vaccines (1 of 2) 2003 COVID-19 Vaccine ( - 2023-2 5 season) 2024 Abdominal Aortic Aneurysm (A AA) Screen 09/10/2024 Cholesterol Screening (Lipid Panel) 09/10/2024 Colorectal Cancer Screening: Colonoscopy 09/10/2024 Depression Screening 09/10/2024 Falls Risk Assessment 09/10/2024 Hepatitis C Screening 09/10/2024 Medicare Annual Wellness Visit 09/10/2024 Social Influencers of Health Screening 09/10/2024 Influenza Vaccine (Season Ended) 2025 RSV Immunization Adult Patie nts (1 - 1-dose 75+ series) 2028 HIB [...] patient's age to complete this topic Meningococcal B Vaccine Aged Out No l onger eligible based on patient's age to complete this topic RSV Immunization Patients Un ella 20 months Aged Out No longer eligible b ased on patient's age to complete this topic Varicella Vaccines Aged Out No longer eligible based on patient's age to complete this topic Procedures Procedure Name Priority Date/Time Associated Diagnosis Comments AP OUTSIDE CONSULT Routine 09/04/2024 12 :00 AM EST Personal history of malignant neoplasm of bladder from Last 3 Months Results * Anatomic pathology outside consult (09/04/2024 12:00 AM EST) Final Diagnosis Urine, voided: Negative for high grade urothelial carcinoma. Results of UroVysion fluorescence in situ hybridization (FISH) testing: CEP3: Normal CEP7: Normal CEP17: Normal LSI 9p21: Normal Interpretation: Normal profile Controls stained appropriately. Note: The results are intended as a screening device and should be interpreted in association with other clinical and pathological findings. 09/23/2024 5:21 PM EDT [facility] Clinical Information History of bladder neoplasm (malignant) Z85.51 Urine Cytology/FISH (now) 09/23/2024 5:21 PM EDT [facility] Gross Description A. Urine, Voided, ([id number]): Received one ThinPrep slide for cytology and one ThinPrep slide for UroVysion FISH 09/23/2024 5:21 PM EDT [facility] Disclaimer Unless otherwise specified, all tissue is 10% NB formalin fixed and paraffin embedded. Technical pathology services provided by [facility] at [address] [place] [address] [address], [place] [address] (CLIA #[id number]/Dayna Butterfield MD, Industrial Spray Painter) 09/23/2024 5:21 PM EDT [facility] Tissue Urine specimen from urethra / Unknown 09/04/2024 09/10/2024 10:00 AM EST us Tello Tesfaye MD LAB PATHOLOGY ORDERABLES Final Result [facility] [address] [place] [address], [place] [phone] from Last 3 Months Insurance MEDICAID - [place] MEDICARE Care Teams Fast Brim Pouncer Relationship Specialty Start Date End Date Physician, Pcp Unknown PCP - General 09/10/24
--- OUTSIDE RECORDS SUMMARY | 2024-11-10 13:02 | XMS_ITS | Encounter Summary ---
Author Organization [facility] Address [address] [place] [address] Care Team Providers Care Radio Aerial Installer Name Role Phone Physician, Pcp Unknown Primary Care Provider Evy vailable Encounter Details Date Type Department Care Team (Late st Contact Info) Description 09/10/2024 Lab Requisition [facility] - Main Lab [address] [facility] [place] [address] Tello Tesfaye MD [address] [facility] [address] [place] [phone] Personal history of malignant neoplasm of bladder Social History Tobacco Use Types Packs/Day Years Used Date Smoking Tobacco: Never Assessed Sex and Gender Information Value Date Recorded Sex Assigned at Not on file Legal Sex Male 12:06 AM EST Gender Identity Not on file Sexual Orientation Not on file documented as of this encounter Plan of Treatment Not on file documented as of this encounter Procedures Procedure Name Priority Date/Time Associated Diagnosis Comments AP OUTSIDE CONSULT Routine 09/04/2024 12 :00 AM EST Personal history of malignant neoplasm of bladder documented in this encounter Results * Anatomic pathology outside consult (09/04/2024 [...] and pathological findings. 09/23/2024 5:21 PM EDT [facility] Clinical Information History of bladder neoplasm (malignant) Z85.51 Urine Cytology/FISH (now) 09/23/2024 5:21 PM EDT [facility] Gross Description A. Urine, Voided, ([id number]): Received one ThinPrep slide for cytology and one ThinPrep slide for UroVysion FISH 09/23/2024 5:21 PM EDT [facility] Disclaimer Unless otherwise specified, all tissue is 10% NB formalin fixed and paraffin embedded. Technical pathology services provided by [facility] at [address] [facility] [address], [place] [address] (CLIA #[id number]/Dayna Butterfield MD, Tank Bottom Assembler) 09/23/2024 5:21 PM EDT [facility] Tissue Urine specimen from urethra / Unknown 09/04/2024 09/10/2024 10:00 AM EST us Tello Tesfaye MD LAB PATHOLOGY ORDERABLES Final Result [facility] [address] [place] [address], documented in this encounter Visit Diagnoses Diagnosis Personal history of malignant neoplasm of bladder documented in this encounter Care Teams Radio Aerial Installer Relationship Specialty Start Date End Date Physician, Pcp Unknown PCP - General 09/10/24 documented as of this encounter
[2024-11-11 14:56] LABS: Creatinine POC 0.8 mg/dL (0.5-1.4); GFR POC > 60
== END 2024-11-10 10:54 | disposition home or self-care (01) ==
LOC: HO.CT 10:53
PROVIDERS: Visit Provider Physician Assistant Surgical
DX: I71.43 Infrarenal abdominal aortic aneurysm, without rupture (principal)
CPT/HCPCS: 74174; 82565; Q9967

== ENCOUNTER → 2024-11-10 10:55 | Outpatient (BNV) | payer MEDICARE, MEDICAID, SELFPAY | PROVIDERS: Visit Provider Student in an Organized Health Care Education/Training Program | DX: I71.43 Infrarenal abdominal aortic aneurysm, without rupture (principal); D35.01 Benign neoplasm of right adrenal gland; I72.8 Aneurysm of other specified arteries; Z95.828 Presence of other vascular implants and grafts | CPT/HCPCS: 74174 ==

== ENCOUNTER 2024-12-18 13:54 | Outpatient (AMB) | payer MEDICARE, MEDICAID, SELFPAY ==
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
--- OUTSIDE RECORDS SUMMARY | 2024-12-18 16:27 | XMS_ITS | Patient Health Record ---
Author Organization [facility] Address [address] [place] [address] Care Team Providers Care Brand Strategist Name Role Phone Abel Beltran MD Primary Care Provider Unavaila Sandy Weinstein Unavailable [phone] Reason For Referral No Information Medications Medication SIG (Take, Route, Frequency, Duration) Notes Start Date End Date Status Sertraline HCl 50 MG 1 tablet Orally Onc e a day for 30 day(s) Active Lovastatin 40 MG 1 tablet with the ev ening meal Orally Once a day for 30 day(s) Active Metoprolol Succinate 25 MG 1 capsule Ora lly Once a day for 30 day(s) Active Lisinopril 5 MG 1 tablet Orally Once a day for 30 day(s) Active Cephalexin 500 MG 1 tablet Orally Twic e a day for 7 days Active Gabapentin 300 MG 1 capsule Orally Onc e a day for 30 day(s) Active Social History Alcohol Screen Question Answer Notes Did you have a drink containing alcohol in the p ast year? No Points 0 Interpretation Negative Plan Of Treatment No Information Insurance Providers Payer Name Payer Address Payer Phone Subscriber Number Group Number Insured Name Patient Relationship to Insured Coverage Start Date Coverage End Date Medicare National [employer] [address] [place] [address] [id number] Tello Estrada Self - patient is the insured Medical (General) History Medical History History ICD Code Depression Measles Mumps Chicken pox Surgical History Surgery Date(Month/Year) shunt bladder cancer Hospitalization History Reason Date(Month/Year) broken arm Right went to rehab 6mon 05/17 019
== END 2024-12-18 14:55 | disposition home or self-care (01) ==
LOC: HO.HVS 13:55
PROVIDERS: Visit Provider Surgery Vascular Surgery
DX: I71.43 Infrarenal abdominal aortic aneurysm, without rupture (principal)
CPT/HCPCS: 99214; G2211

== ENCOUNTER → 2024-12-18 13:54 | Outpatient (BNVA) | payer OTHER, SELFPAY | PROVIDERS: Visit Provider Surgery Vascular Surgery | DX: I71.43 Infrarenal abdominal aortic aneurysm, without rupture (principal) | CPT/HCPCS: 99212 ==

== ENCOUNTER 2025-02-03 14:22 | Outpatient (AMB) | payer OTHER, MEDICAID, SELFPAY ==
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
--- OUTSIDE RECORDS SUMMARY | 2025-02-03 15:38 | XMS_ITS | Patient Health Record ---
Author Organization [facility] Address [address] [place] [address] Care Team Providers Care Seat Nailer Name Role Phone Antonio Abel Primary Care Provider Lety Valenzuela [phone] Reason For Referral No Information Medications Medication SIG (Take, Route, Frequency, Duration) Notes Start Date End Date Status Sertraline HCl 50 MG 1 tablet Orally Onc e a day; Duration: 30 day(s) Active Lovastatin 40 MG 1 tablet with the ev ening meal Orally Once a day; Duration: 30 day(s) Active Metoprolol Succinate 25 MG 1 capsule Ora lly Once a day; Duration: 30 day(s) Active Lisinopril 5 MG 1 tablet Orally Once a day; Duration: 30 day(s) Active Cephalexin 500 MG 1 tablet Orally Twic e a day; Duration: 7 days Active Gabapentin 300 MG 1 capsule Orally Onc e a day; Duration: 30 day(s) Active Social History Tobacco Use: Social History Observation Description Date Details (start date - stop date) Former Smoker NA - NA Tobacco Use/Smoking Question Answer Notes Are you a: former smoker Alcohol Screen Question Answer Notes Did you have a drink containing alcohol in the p ast year? No Points 0 Interpretation Negative Tobacco use other than smoking: Question Answer Notes Are you an other tobacco user? No Encounters Encounter Location Date Provider Diagnosis [facility] [address] [place] [address] 01/19/2025 Lety Bonilla Plan Of Treatment Next Appt Details Provider Name:Lety cantu, 04/08/2025 01:00:00 PM, [address] [place], [address], Insurance Providers Payer Name Payer Address Payer Phone Subscriber Number Group Number Insured Name Patient Relationship to Insured Coverage Start Date Coverage End Date [facility] [employer] Claims [address] [place] [id number] Tello Estrada Self - patient is the insured Medical (General) History Medical History History ICD Code Depression Measles Mumps Chicken pox Surgical History Surgery Date(Month/Year) shunt bladder cancer Hospitalization History Reason Date(Month/Year) broken arm Right went to rehab 6mon / 019
--- OUTSIDE RECORDS SUMMARY | 2025-02-03 15:38 | XMS_ITS | Encounter Summary ---
Author Organization [facility] Address [address] [place] [address] Care Team Providers Care Director Of Blood Name Role Phone Physician, Pcp Unknown Primary Care Provider Evy vailable Encounter Details Date Type Department Care Team (Late st Contact Info) Description 09/10/2024 Lab Requisition [facility] - Main Lab [address] [facility] [place] [address] Tello Tesfaye MD [address] [facility] [address] [place] [id number] Personal history of malignant neoplasm of bladder [...] 09/23/2024 5:21 PM EDT [facility] LAB Clinical Information History of bladder neoplasm (malignant) Z85.51 Urine Cytology/FISH (now) 09/23/2024 5:21 PM EDT [facility] Gross Description A. Urine, Voided, ([id number]): Received one ThinPrep slide for cytology and one ThinPrep slide for UroVysion FISH 09/23/2024 5:21 PM EDT [facility] Disclaimer Unless otherwise specified, all tissue is 10% NB formalin fixed and paraffin embedded. Technical pathology services provided by [facility] at [address] [facility], [place] [address] (CLIA #[id number]/Dayna Butterfield MD, Reel Operator) 09/23/2024 5:21 PM EDT [facility] Tissue Urine specimen from urethra / Unknown 09/04/2024 09/10/2024 10:00 AM EST us Tello Tesfaye MD LAB PATHOLOGY ORDERABLES Final Result [facility] [address] [place] [address], documented in this encounter Visit Diagnoses Diagnosis Personal history of malignant neoplasm of bladder documented in this encounter Care Teams Director Of Blood Relationship Specialty Start Date End Date Physician, Pcp Unknown PCP - General 09/10/24 documented as of this encounter
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
== END 2025-02-03 14:49 | disposition home or self-care (01) ==
LOC: HO.HVS 14:23
PROVIDERS: PCP Internal Medicine; Visit Provider Surgery Vascular Surgery
DX: I71.43 Infrarenal abdominal aortic aneurysm, without rupture (principal)
CPT/HCPCS: 99214

== ENCOUNTER → 2025-02-03 14:22 | Outpatient (BNVA) | payer OTHER, SELFPAY | PROVIDERS: PCP Internal Medicine; Visit Provider Surgery Vascular Surgery | DX: I71.43 Infrarenal abdominal aortic aneurysm, without rupture (principal); R10.30 Lower abdominal pain, unspecified; Z98.890 Other specified postprocedural states | CPT/HCPCS: 99212 ==

== ENCOUNTER 2025-03-10 12:48 | Outpatient (AMB) | payer OTHER, SELFPAY ==
[2025-03-10 12:53] VITALS: BP 110/74; PULSE 63; RESP 18; TEMP 36.2; O2SAT 94; BMI 24.9
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
--- OUTSIDE RECORDS SUMMARY | 2025-03-10 13:30 | XMS_ITS | Encounter Summary ---
Author Organization [facility] Address [address] [place] [address] Care Team Providers Care Alarm Installation Technician Name Role Phone Physician, Pcp Unknown Primary Care Provider Evy vailable Encounter Details Date Type Department Care Team (Late st Contact Info) Description 09/10/2024 Lab Requisition [facility] - Main Lab [address] [facility] [place] [address] Tello Tesfaye MD [address] [facility] [address] [place] [id number] Personal history of malignant neoplasm of bladder [...] and pathological findings. 09/23/2024 5:21 PM EDT [facility] LAB Clinical Information History of bladder neoplasm (malignant) Z85.51 Urine Cytology/FISH (now) 09/23/2024 5:21 PM EDT [facility] Gross Description A. Urine, Voided, ([id number]): Received one ThinPrep slide for cytology and one ThinPrep slide for UroVysion FISH 09/23/2024 5:21 PM EDT [facility] Disclaimer Unless otherwise specified, all tissue is 10% NB formalin fixed and paraffin embedded. Technical pathology services provided by [facility] at [address] [facility] [address], [place] [address] (CLIA #[id number]/Dayna Butterfield MD, Airframe And Powerplant Technician) 09/23/2024 5:21 PM EDT [facility] Tissue Urine specimen from urethra / Unknown 09/04/2024 09/10/2024 10:00 AM EST us Tello Tesfaye MD LAB PATHOLOGY ORDERABLES Final Result [facility] [address] [place] [address], documented in this encounter Visit Diagnoses Diagnosis Personal history of malignant neoplasm of bladder documented in this encounter Care Teams Alarm Installation Technician Relationship Specialty Start Date End Date Physician, Pcp Unknown PCP - General 09/10/24 documented as of this encounter
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
--- OUTSIDE RECORDS SUMMARY | 2025-03-10 13:30 | XMS_ITS | Clinical Summary ---
Author Organization [address] [facility] Address [address] [place] [address] Phone Care Team Providers Care Traffic Rate Clerk Name Role Phone Physician, Pcp Unknown Primary Care Provider Evy vailable Social History Tobacco Use Types Packs/Day Years [...] Vaccines (1 of 2) 2003 COVID-19 Vaccine (1 - 2023-2 5 season) 2024 Depression Screening 07/16/2024 Abdominal Aortic Aneurysm (A AA) Screen 09/10/2024 Cholesterol Screening (Lipid Panel) 09/10/2024 Colorectal Cancer Screening: Colonoscopy 09/10/2024 Falls Risk Assessment 09/10/2024 Hepatitis C Screening 09/10/2024 Medicare Annual Wellness Visit 09/10/2024 Social Influencers of Health Screening 09/10/2024 Influenza Vaccine (#1) 2025 RSV Immunization Adult Patie nts (1 [...] on patient's age to complete this topic Insurance MEDICAID - [place] MEDICARE Care Teams Traffic Rate Clerk Relationship Specialty Start Date End Date Physician, Pcp Unknown PCP - General 09/10/24
--- OUTSIDE RECORDS SUMMARY | 2025-03-10 13:30 | XMS_ITS | Patient Health Record ---
Author Organization [facility] Address [address] [place] [address] Care Team Providers Care Director Of Counterintelligence Name Role Phone Antonio Abel Primary Care Provider Lety Valenzuela [phone] Reason For Referral No Information Medications Medication [...] No Encounters Encounter Location Date Provider Diagnosis [facility] [address] [place] [address] 01/19/2025 Lety Bonilla Plan Of Treatment Next Appt Details Provider Name:Lety cantu, 04/08/2025 01:00:00 PM, [address] [place], [address], Insurance Providers Payer Name Payer Address Payer Phone Subscriber Number Group Number Insured Name Patient Relationship to Insured Coverage Start Date Coverage End Date [facility] CCA SCO Claims [address] [place] [phone] [id number] Tello Estrada Self - patient is the insured Medical (General) History Medical History History ICD Code Depression Measles Mumps Chicken pox Surgical History Surgery Date(Month/Year) shunt bladder cancer Hospitalization History Reason Date(Month/Year) broken arm Right went to rehab 6mon / 019
== END 2025-03-10 13:48 | disposition home or self-care (01) ==
LOC: HO.HMCH 12:49
PROVIDERS: PCP Internal Medicine
DX: Z01.818 Encounter for other preprocedural examination (principal); I71.43 Infrarenal abdominal aortic aneurysm, without rupture; C67.9 Malignant neoplasm of bladder, unspecified; Z98.2 Presence of cerebrospinal fluid drainage device; H26.9 Unspecified cataract

== ENCOUNTER → 2025-03-10 12:48 | Outpatient (BNVA) | payer OTHER, SELFPAY | PROVIDERS: PCP Internal Medicine | DX: Z01.818 Encounter for other preprocedural examination (principal); I71.43 Infrarenal abdominal aortic aneurysm, without rupture; H26.9 Unspecified cataract; Z98.2 Presence of cerebrospinal fluid drainage device; Z85.51 Personal history of malignant neoplasm of bladder; Z85.828 Personal history of other malignant neoplasm of skin | CPT/HCPCS: 96127; 99202 ==

== ENCOUNTER → 2025-03-12 13:13 | Outpatient (REF) | payer OTHER, SELFPAY ==
--- NOTE | 2025-03-12 13:17 | ECG_ITS ---
Test Reason : preop Blood Pressure : */* mmHG Vent. Rate : 74 BPM Atrial Rate : 74 BPM P-R Int : 166 ms QRS Dur : 76 ms QT Int : 380 ms P-R-T Axes : 100 0 40 degrees QTcB Int : 421 ms Normal sinus rhythm Possible Inferior infarct (cited on or before 23-Jan-2024) can also be related to body habitus Abnormal ECG When compared with ECG of 23-Jan-2024 12:40, No significant change was found Referred By: Antonio Abel Electronically Signed By: CHUNG DYSON
[2025-03-12 13:28] LABS: MANUAL DIFF FLAG NO
[2025-03-12 13:44] LABS: Hematocrit 45.1 % (42.0-52.0); Hemoglobin 15.0 g/dl (14.0-18.0); Imm Gran Abs Auto 0.04 X10*3/uL (0.00-0.03); Imm Gran Pct Auto 0.5 % (0.0-0.4); Lymphocytes Absolute Auto 1.2 X10*3/uL (1.2-4.9); Mean Corpuscular HGB Conc 33.3 g/dl (31.0-36.0); Mean Corpuscular Hemoglobin 30.8 pg (27.0-33.0); Mean Corpuscular Volume 92.6 fL (80.0-98.0); NRBC Abs Auto 0.000 X10*3/uL (0.0-0.012); NRBC Pct Auto 0.0 /100WBC (0.0-0.2); Platelet Count 215 X10*3/uL (160-400); Red Blood Count 4.87 X10*6/uL (4.60-5.80); White Blood Count 7.8 X10*3/uL (4.8-10.8)
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
--- OUTSIDE RECORDS SUMMARY | 2025-03-12 13:49 | XMS_ITS | Patient Health Record ---
Author Organization [facility] Address [address] [place] [address] Care Team Providers Care Schedule Clerk Name Role Phone Antonio Abel Primary Care Provider Lety Valenzuela [phone] Reason For Referral No Information Medications Medication [...] No Encounters Encounter Location Date Provider Diagnosis [facility] [address] [place] [address] 01/19/2025 Lety Bonilla Plan Of Treatment Next Appt Details Provider Name:Lety cantu, 04/08/2025 01:00:00 PM, [address] [place], [address], Insurance Providers Payer Name Payer Address Payer Phone Subscriber Number Group Number Insured Name Patient Relationship to Insured Coverage Start Date Coverage End Date [facility] CCA SCO Claims [address] [place] [address] [id number] Tello Estrada Self - patient is the insured Medical (General) History Medical History History ICD Code Depression Measles Mumps Chicken pox Surgical History Surgery Date(Month/Year) shunt bladder cancer Hospitalization History Reason Date(Month/Year) broken arm Right went to rehab 6mon / 019
--- OUTSIDE RECORDS SUMMARY | 2025-03-12 13:49 | XMS_ITS | Encounter Summary ---
Author Organization [facility] Address [address] [place] [address] Care Team Providers Care Server Developer Name Role Phone Physician, Pcp Unknown Primary Care Provider Evy vailable Encounter Details Date Type Department Care Team (Late st Contact Info) Description 09/10/2024 Lab Requisition [facility] - Main Lab [address] [facility] [place] [address] Tello Tesfaye MD [address] [facility] [address] [place] [phone] Personal history of malignant neoplasm of bladder [...] and pathological findings. 09/23/2024 5:21 PM EDT [facility] Clinical Information History of bladder neoplasm (malignant) Z85.51 Urine Cytology/FISH (now) 09/23/2024 5:21 PM EDT [facility] Gross Description A. Urine, Voided, ([id number]): Received one ThinPrep slide for cytology and one ThinPrep slide for UroVysion FISH 09/23/2024 5:21 PM EDT [facility] Disclaimer Unless otherwise specified, all tissue is 10% NB formalin fixed and paraffin embedded. Technical pathology services provided by [facility] at [address] [facility] [address], [place] [address] (CLIA #[id number]/Dayna Butterfield MD, Pack Out Operator) 09/23/2024 5:21 PM EDT [facility] Tissue Urine specimen from urethra / Unknown 09/04/2024 09/10/2024 10:00 AM EST us Tello Tsefaye MD LAB PATHOLOGY ORDERABLES Final Result [facility] [address] [place] [address], documented in this encounter Visit Diagnoses Diagnosis Personal history of malignant neoplasm of bladder documented in this encounter Care Teams Server Developer Relationship Specialty Start Date End Date Physician, Pcp Unknown PCP - General 09/10/24 documented as of this encounter
--- OUTSIDE RECORDS SUMMARY | 2025-03-12 13:49 | XMS_ITS | Clinical Summary ---
Author Organization [address] [facility] Address [address] [place] [address] Phone Care Team Providers Care Wardrobe Custodian Name Role Phone Physician, Pcp Unknown Primary [...] Insurance MEDICAID - [place] MEDICARE Care Teams Wardrobe Custodian Relationship Specialty Start Date End Date Physician, Pcp Unknown PCP - General 09/10/24
[2025-03-12 13:59] LABS: Appearance Urine Clear; Glucose Urine UA Negative (Negative); PH 5.5 (5.0-9.0); Specific Gravity - Urine 1.025 (1.005-1.025)
[2025-03-12 14:31] LABS: Anion Gap 12 (12-20); Blood Urea Nitrogen 22 mg/dL (9-16); Calcium 9.4 mg/dL (8.4-10.2); Carbon Dioxide 26 mmol/L (22-29); Chloride 105 mmol/L (96-108); Estimated Glomerular Filt Rate > 60; Potassium 4.2 mmol/L (3.3-5.1); Sodium 139 mmol/L (135-145)
[2025-03-12 15:15] LABS: Hemoglobin A1C 134.0060 umol/L; Total Hemoglobin (HGBA1C) 3795.1936 umol/L
== END ==
LOC: HO.CARD 13:13
DX: Z01.810 Encounter for preprocedural cardiovascular examination (principal); Z01.812 Encounter for preprocedural laboratory examination; Z13.1 Encounter for screening for diabetes mellitus; Z13.29 Encounter for screening for other suspected endocrine disorder
CPT/HCPCS: 36415; 80048; 81003; 83036; 84443; 85025; 93005

== ENCOUNTER → 2025-03-12 13:17 | Outpatient (BNV) | payer OTHER, SELFPAY | PROVIDERS: Visit Provider Internal Medicine | DX: R94.31 Abnormal electrocardiogram [ECG] [EKG] (principal); Z01.810 Encounter for preprocedural cardiovascular examination | CPT/HCPCS: 93010 ==

== ENCOUNTER 2025-05-05 14:24 | Outpatient (AMB) | payer OTHER, SELFPAY ==
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
--- OUTSIDE RECORDS SUMMARY | 2025-05-05 19:30 | XMS_ITS | Clinical Summary ---
Author Organization [address] [facility] Address [address] [place] [address] Phone Care Team Providers Care Clinical Systems Educator Name Role Phone Physician, Pcp Unknown Primary Care Provider Evy vailable Encounters Date Type Department Care Team Description 03/18/2025 Lab Requisition [facility] - Main Lab [address] [facility] [place] [address] Tello Tesfaye MD Personal history [...] Health Maintenance Due Date Last Done Comments Colorectal Cancer Screening: Colonoscopy 1953 DTaP,Tdap,and Td Vaccines (1 - Tdap) 1972 Pneumococcal Vaccine: 50+ Ye ars (1 of 1 - PCV) 2003 Zoster Vaccines (1 of 2) 2003 Depression Screening 07/16/2024 Abdominal Aortic Aneurysm (A AA) Screen 09/10/2024 Cholesterol Screening (Lipid Panel) 09/10/2024 Falls Risk Assessment 09/10/2024 Hepatitis C Screening 09/10/2024 Medicare Annual Wellness Visit 09/10/2024 Social Influencers of Health Screening 09/10/2024 COVID-19 Vaccine ( - 2023-2 5 season) 2025 Influenza Vaccine (#1) 2025 RSV Immunization Adult [...] Procedure Name Priority Date/Time Associated Diagnosis Comments NON-GYNECOLOGIC CYTOLOGY Routine 03/05/2025 12:00 AM EDT Personal history of malignant neoplasm of bladder from Last 3 Months Results * Non-gynecologic cytology (03/05/2025 12:00 AM EDT) Final Diagnosis A. Urine, Voided, : Negative for high grade urothelial carcinoma. Results of UroVysion fluorescence in situ hybridization (FISH) testing: CEP3: Normal CEP7: Normal CEP17: Normal LSI 9p21: Normal Interpretation: Normal profile Controls stained appropriately. Note: The results are intended as a screening device and should be interpreted in association with other clinical and pathological findings. 04/08/2025 6:02 PM EDT [facility] Specimen A Adequacy Satisfactory for evaluation 04/08/2025 6:02 PM EDT [facility] Clinical Information History of bladder neoplasm (malignant) Z85.51 Urine Cytology/FISH (now) 04/08/2025 6:02 PM EDT [facility] Gross Description A. Urine, Voided, : Received one ThinPrep slide for cytology and one ThinPrep slide for UroVysion FISH 04/08/2025 6:02 PM EDT [facility] Disclaimer Unless otherwise specified, all tissue is 10% NB formalin fixed and paraffin embedded. Technical pathology services provided by [facility] at [address], [place] [address] (CLIA #[id number]/Dayna Butterfield MD, Wig Sales Consultant) 04/08/2025 6:02 PM EDT [facility] Urine Urine specimen from urethra / Unknown 03/05/2025 03/18/2025 11:07 AM EDT us Tello Tesfaye MD LAB CYTOLOGY ORDERABLES Final R esult [facility] [address] [place] [address], [place] [phone] from Last 3 Months Insurance MEDICAID - [place] MEDICARE Care Teams Clinical Systems Educator Relationship Specialty Start Date End Date Physician, Pcp Unknown PCP - General 09/10/24
--- OUTSIDE RECORDS SUMMARY | 2025-05-05 19:30 | XMS_ITS | Encounter Summary ---
Author Organization [facility] Address [address] [place] [address] Care Team Providers Care B2B Sales Executive Name Role Phone Physician, Pcp Unknown Primary Care Provider Evy vailable Encounter Details Date Type Department Care Team (Late st Contact Info) Description 09/10/2024 Lab Requisition [facility] - Main Lab [address] [facility] [place] [address] Tello Tesfaye MD [address] [facility] [address] [place] [phone] Personal history of malignant neoplasm of bladder [...] and pathological findings. 09/23/2024 5:21 PM EDT [facility] Clinical Information History of bladder neoplasm (malignant) Z85.51 Urine Cytology/FISH (now) 09/23/2024 5:21 PM EDT [facility] Gross Description A. Urine, Voided, ([id number]): Received one ThinPrep slide for cytology and one ThinPrep slide for UroVysion FISH 09/23/2024 5:21 PM EDT [facility] Disclaimer Unless otherwise specified, all tissue is 10% NB formalin fixed and paraffin embedded. Technical pathology services provided by [facility] at [address] [facility] [address], [place] [address] (CLIA #[id number]/Dayna Butterfield MD, Adapted Physical Education Aide) 09/23/2024 5:21 PM EDT [facility] Tissue Urine specimen from urethra / Unknown 09/04/2024 09/10/2024 10:00 AM EST us Tello Tesfaye MD LAB PATHOLOGY ORDERABLES Final Result [facility] [address] [place] [address], documented in this encounter Visit Diagnoses Diagnosis Personal history of malignant neoplasm of bladder documented in this encounter Care Teams B2B Sales Executive Relationship Specialty Start Date End Date Physician, Pcp Unknown PCP - General 09/10/24 documented as of this encounter
--- OUTSIDE RECORDS SUMMARY | 2025-05-05 19:30 | XMS_ITS | Patient Health Record ---
Author Organization [facility] Address [address] [place] [address] Care Team Providers Care Delivery Clerk Name Role Phone Antonio Abel Primary Care Provider Lety Valenzuela Unavailable [phone] Allergies No Known Allergies Reason For Referral No Information Medications Medication SIG (Take, Route, Frequency, Duration) Notes Start Date End Date Status Sertraline HCl 50 MG 1 tablet Orally Onc e a day; Duration: 30 day(s) Active Vitamin D3 50 MCG (1999 UT) 1 capsule Orally Once a day Active Aspirin 81 MG 1 capsule Orally Onc e a day Active Vitamin C 500 MG as directed Orally twice a day Active Tylenol 325 MG 1 tablet as needed Orally daily Active Melatonin 5 MG as directed Orally Active Laxative Active Cephalexin 500 MG 1 tablet Orally Twic e a day; Duration: 7 days Not-Taking Gabapentin 300 MG 1 capsule Orally twi ce a day; Duration: 30 days Active Lovastatin 40 MG 1 tablet with the evening meal Orally Once a day; Duration: 30 day(s) Active Metoprolol Succinate 25 MG 1 capsule Orally twice a day; Duration: 30 days Active Lisinopril 5 MG 1 tablet Orally Once a day; Duration: 30 day(s) Active Orthopedic Extra Depth Shoes With Custom Heat Molded Multidensity Innersoles 1 Pair shoes with 3 Pair custom heat molded innersoles Wear Daily; Duration: 365 days 04/08/2025 Active Immunizations Vaccine Route Administration Date Status Comme nts Influenza Unknown 03/16/2024 Administered Social History Tobacco Use: Social History Observation Description Date Details (start date - stop date) Never Smoker NA - NA Tobacco use other than smoking: Question Answer Notes Are you an other tobacco user? No Tobacco Control (Standard) Question Answer Notes Tobacco use: Nonsmoker Additional Findings: Tobacco non-user Current no nsmoker AUDIT-C (Standard) Question Answer Notes Did you have a drink containing alcohol in the p ast year? No Points 0 Interpretation Negative Problems Problem Type SNOMED Code ICD Code Onset Dates Problem Status W/U Status Risk Notes Problem Acquired hammer toe of right foot (6411805331827 105) Other hammer toe(s) (acquired), right foot (M20.41) Active confirmed Problem Acquired hammer toe of left foot (2064184980481 103) Other hammer toe(s) (acquired), left foot (M20.42) Active confirmed Vital Signs Blood pressure diastolic 70 mm Hg 04/08/2025 Height [id number] in 04/08/2025 Blood pressure systolic 112 mm Hg 04/08/2025 Weight 193 lbs 04/08/2025 BMI 27.69 kg/m2 04/08/2025 Procedures Procedure Date Ordered Date Performed Result Body Sit e [id number] NAIL, 6 OR MORE 04/08/2025 N/A Encounters Encounter Location Date Provider Diagnosis [facility] [address] [address] 04/08/2025 Lety Bonilla Other hammer toe(s) (acquired), right foot M20.41 ; Other hammer toe(s) (acquired), left foot M20.42 ; Pain in right toe(s) M79.674 ; Onychomycosis B35.1 and Pain in left toe(s) M79.675 [facility] [address] [address] 01/19/2025 Lety Bonilla Assessments Encounter Date Diagnosis (ICD Code) Assessment Notes Treatment Notes Treatment Clinical Notes Section Notes 04/08/2025 Other hammer toe(s) (acquired), right foot (ICD-10 - M20.41) Patient Educated with: DIABETIC FOOT CARE INSTRUCTIONS.p df (DIABETIC FOOT CARE INSTRUCTIONS.p df) 04/08/2025 Other hammer toe(s) (acquired), left foot (ICD-10 - M20.42) 04/08/2025 Pain in right toe(s) (ICD-10 - M79.674) 04/08/2025 Onychomycosis (ICD-10 - B35.1) 04/08/2025 Pain in left toe(s) (ICD-10 - M79.675) Plan Of Treatment Pending Test Test Name Order Date [id number] NAIL, 6 OR MORE 04/08/2025 Next Appt Details Provider Name:Lety cantu, 07/13/2025 02:30:00 PM, [address] [place] [address], [phone], Insurance Providers Payer Name Payer Address Payer Phone Subscriber Number Group Number Insured Name Patient Relationship to Insured Coverage Start Date Coverage End Date [facility] CCA SCO Claims [address] [place] [address] [id number] Tello Estrada Self - patient is the insured Medical (General) History Medical History History ICD Code Depression Measles Mumps Chicken pox bladder cancer High Blood Pressure Surgical History Surgery Date(Month/Year) shunt bladder cancer AAA 11/2024 Hospitalization History Reason Date(Month/Year) broken arm Right went to rehab 6mon 05/17 019
--- OUTSIDE RECORDS SUMMARY | 2025-05-05 19:30 | XMS_ITS | Encounter Summary ---
Author Organization [facility] Address [address] [place] [address] Care Team Providers Care Mess Cook Name Role Phone Physician, Pcp Unknown Primary Care Provider Evy vailable Encounter Details Date Type Department Care Team (Late st Contact Info) Description 03/18/2025 Lab Requisition [facility] - Main Lab [address] [facility] [place] [address] Tello Tesfaye MD [address] [place] [id number] Personal history of malignant neoplasm of bladder [...] bladder documented in this encounter Results * Non-gynecologic cytology (03/05/2025 12:00 AM EDT) Final Diagnosis A. Urine, Voided, [id number]: Negative for high grade urothelial carcinoma. Results of UroVysion fluorescence in situ hybridization (FISH) testing: CEP3: Normal CEP7: Normal CEP17: Normal LSI 9p21: Normal Interpretation: Normal profile Controls stained appropriately. Note: The results are intended as a screening device and should be interpreted in association with other clinical and pathological findings. 04/08/2025 6:02 PM EDT [facility] Specimen A Adequacy Satisfactory for evaluation 04/08/2025 6:02 PM EDT [facility] Clinical Information History of bladder neoplasm (malignant) Z85.51 Urine Cytology/FISH (now) 04/08/2025 6:02 PM EDT [facility] Gross Description A. Urine, Voided, [id number]: Received one ThinPrep slide for cytology and one ThinPrep slide for UroVysion FISH 04/08/2025 6:02 PM EDT [facility] Disclaimer Unless otherwise specified, all tissue is 10% NB formalin fixed and paraffin embedded. Technical pathology services provided by [facility] at [address] [place] [address] [address], [place] [address] (CLIA #[id number]/Dayna Butterfield MD, [employer] Operator) 04/08/2025 6:02 PM EDT [facility] Urine Urine specimen from urethra / Unknown 03/05/2025 03/18/2025 11:07 AM EDT us Tello Tesfaye MD LAB CYTOLOGY ORDERABLES Final R esult [facility] [address] [place] [address], documented in this encounter Visit Diagnoses Diagnosis Personal history of malignant neoplasm of bladder documented in this encounter Care Teams Mess Cook Relationship Specialty Start Date End Date Physician, Pcp Unknown PCP - General 09/10/24 documented as of this encounter
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
== END 2025-05-05 14:53 | disposition home or self-care (01) ==
LOC: HO.HSM 14:26
PROVIDERS: Visit Provider Psychiatry & Neurology Neurology
DX: R26.89 Other abnormalities of gait and mobility (principal); Z86.79 Personal history of other diseases of the circulatory system; Z98.890 Other specified postprocedural states; Z98.2 Presence of cerebrospinal fluid drainage device
CPT/HCPCS: 99214

== ENCOUNTER → 2025-05-05 14:24 | Outpatient (BNVA) | payer OTHER, SELFPAY | PROVIDERS: Visit Provider Psychiatry & Neurology Neurology | DX: R26.89 Other abnormalities of gait and mobility (principal); Z86.79 Personal history of other diseases of the circulatory system; Z98.2 Presence of cerebrospinal fluid drainage device | CPT/HCPCS: 99212 ==

== ENCOUNTER 2025-06-22 13:07 | Outpatient (REF) | payer OTHER, SELFPAY ==
--- NOTE | ~2025-06-22 | CT_ITS ---
EXAMINATION: CT ANGIOGRAM ABDOMEN AND PELVIS CLINICAL INFORMATION: I 71.43. Infrarenal abdominal aortic aneurysm without rupture. COMPARISON: November 10, 2024. TECHNIQUE: Multiple axial images were obtained through the abdomen and pelvis following the administration of 80 mL of Omnipaque 350 intravenous contrast. Images were reviewed on a dedicated 3-D workstation. This CT examination was performed using dose optimization techniques as appropriate, variously including the following: *Automated exposure control *Adjustment of mA and/or kV according to patient size (this includes techniques or standardized protocols for targeted exams where dose is matched to indication/reason for exam; i.e. extremities or head) *Use of iterative reconstruction technique DLP: 273 mGy-cm FINDINGS: Status post stenting abdominal aorta from the suprarenal to distal segments into the right and left common iliac arteries. The abdominal aorta stent is patent. No IV contrast extravasation. No periaortic edema pattern or fluid collections. Suprarenal abdominal aorta diameter is 27 x 21 mm. Infrarenal abdominal aorta diameter is 21 x 20 mm. Distal abdominal aorta diameter is 26 x 27 mm. Right common iliac aorta diameter is 15 mm. Left common iliac artery diameter is 14 mm. Calcified plaques throughout the abdominal aorta wall and iliac arteries and the femoral arteries. There is a 14 mm partially calcified and noncalcified pseudoaneurysm on the right lateral wall proximal to mid segment of the celiac trunk. The celiac trunk is patent. The superior mesenteric artery is patent. The main renal arteries are patent. Ancillary findings: Diverticular disease, left hemicolon. Gas and fluid-filled mildly prominent small bowel loops. No ascites. No pneumoperitoneum. No hydronephrosis or gross nephrolithiasis. Bilateral renal cortical defects. Fat-containing right inguinal hernia. Multilevel thoracolumbar spondylosis. 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 Wedge-shaped compression deformity representing 30% volume loss at T12 vertebra. Old traumatic deformity in the sacrococcyx. Fatty atrophy of the lower lumbar muscles. CT/CT angio abdomen pelvis IMPRESSION: Status post Endo aortoiliac graft stenting without rupture or intramural hematoma. 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 Stable. Subacute to old compression fracture, T12. 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 Fleischner guidelines were followed. Electronically signed by: Ever Santana MD 06/22/2025 02:54 PM [facility]
[2025-06-22 13:38] LABS: Blood Urea Nitrogen 26 mg/dL (9-16); Estimated Glomerular Filt Rate > 60
[2025-06-22] MEDS: iohexoL 350 MG/ML 100 ML INFUS..BTL IV (14:39)
== END 2025-06-22 13:08 | disposition home or self-care (01) ==
LOC: HO.CT 13:07
PROVIDERS: Visit Provider Surgery Vascular Surgery
DX: I71.43 Infrarenal abdominal aortic aneurysm, without rupture (principal)
CPT/HCPCS: 36415; 74174; 82565; 84520; Q9967

== ENCOUNTER → 2025-06-22 13:10 | Outpatient (BNV) | payer OTHER, SELFPAY | PROVIDERS: Visit Provider Radiology Diagnostic Radiology | DX: I71.43 Infrarenal abdominal aortic aneurysm, without rupture (principal) | CPT/HCPCS: 74174 ==